=== PATIENT | female | born 1965 | race Two or more races ===

== ENCOUNTER 2020-05-02 14:21 | Outpatient (REF) | payer OTHER, SELFPAY ==
[2020-05-02 16:05] LABS: Alanine Aminotransferase 14 U/L (0-31); Albumin Level 4.2 g/dL (3.5-5.0); Alkaline Phosphatase 72 U/L (39-117); Anion Gap 11 (12-20); Aspartate Amino Transferase 17 U/L (5-31); Bilirubin Total 0.9 mg/dL (0.0-1.0); Blood Urea Nitrogen 12 mg/dL (9-16); Calcium 9.2 mg/dL (8.4-10.2); Carbon Dioxide 29 mmol/L (22-29); Chloride 106 mmol/L (96-108); Cholesterol 269 mg/dL; Estimated Glomerular Filt Rate > 60; Glucose Fasting 104 mg/dL (60-99); HDL Cholesterol 59 mg/dL; LDL Cholesterol Calculated 183 mg/dl; Potassium 4.3 mmol/l (3.3-5.1); Sodium 142 mmol/L (135-145); Total Protein 7.3 g/dL (6.5-8.0); Triglycerides 139 mg/dL
[2020-05-02 16:25] LABS: TSH reflex Free T4 2.16 mIU/mL (0.32-4.0)
== END 2020-05-02 14:22 | disposition home or self-care (01) ==
LOC: HO.LAB 14:21
PROVIDERS: PCP Internal Medicine; Visit Provider Internal Medicine
DX: E03.9 Hypothyroidism, unspecified (principal); E78.5 Hyperlipidemia, unspecified; E11.9 Type 2 diabetes mellitus without complications
CPT/HCPCS: 36415; 80053; 80061; 84443

== ENCOUNTER 2020-05-31 10:48 | Outpatient (REF) | payer OTHER, SELFPAY ==
--- NOTE | ~2020-05-31 | MM_ITS ---
EXAMINATION: MM SCREENING DIGITAL BREAST TOMOSYNTHESIS, BILATERAL CLINICAL INFORMATION: Screening. Asymptomatic. Prior history bilateral reduction mammoplasty. The lifetime risk of breast cancer based on the Tyrer-Cuzick Model is 11%. COMPARISON: Mammography: 09/29/2018, 01/31/2016, 09/19/2014 TECHNIQUE: Digital breast tomosynthesis is performed in both the craniocaudal and mediolateral oblique views along with computer-aided detection (CAD). Synthesized 2D images are generated from the tomosynthesis. FINDINGS: There are scattered areas of fibroglandular density (ACR BI-RADS breast composition Category b). There are no significant masses, abnormal calcifications, or other abnormalities. Parenchymal pattern is similar to prior exams. Minor bilateral scarring consistent with the prior surgery is stable. No significant changes from prior exams. MM/MM tomosynthesis screening BI IMPRESSION: No mammographic evidence of malignancy. ASSESSMENT: BI-RADS 2: Benign RECOMMENDATION: Routine annual mammography screening. This patient's information was entered into a reminder system with a target due date for their next mammogram.
== END 2020-05-31 10:49 | disposition home or self-care (01) ==
LOC: HO.MAMMO 10:48
PROVIDERS: Visit Provider Internal Medicine
DX: Z12.31 Encounter for screening mammogram for malignant neoplasm of breast (principal)
CPT/HCPCS: 77063; 77067

== ENCOUNTER 2020-06-10 15:42 | Emergency (ER) | payer OTHER, SELFPAY ==
--- NOTE | ~2020-06-10 | XR_ITS ---
EXAMINATION: 1. LUMBAR SPINE. 2. SACRUM AND COCCYX. CLINICAL INFORMATION: Low back pain COMPARISON: CT scan abdomen pelvis 08/05/2017 TECHNIQUE: 1. Lumbar spine. 3 views 2. Sacrum and coccyx. 3 views FINDINGS: 1. Lumbar spine. Lumbar vertebrae have normal height and normal alignment. There is no fracture or bone destruction. There is minor degenerative lipping at the anterior endplates of lumbar vertebrae and mild facet joint arthrosis at lower lumbar spine. Lumbar disc heights are maintained. Compared to the prior study of 08/05/2017 there has not been substantial change. 2. Sacrum and coccyx. There is no fracture. No focal bone lesion. The sacroiliac joints are normal XR/XR sacrum coccyx min 2V IMPRESSION: 1. Lumbar spine. No acute abnormality. Mild degenerative change of lumbar spine. 2. Sacrum and coccyx. Normal exam.
--- NOTE | ~2020-06-10 | XR_ITS ---
EXAMINATION: 1. LUMBAR SPINE. 2. SACRUM AND COCCYX. CLINICAL INFORMATION: Low back pain COMPARISON: CT scan abdomen pelvis 08/05/2017 TECHNIQUE: 1. Lumbar spine. 3 views 2. Sacrum and coccyx. 3 views FINDINGS: 1. Lumbar spine. Lumbar vertebrae have normal height and normal alignment. There is no fracture or bone destruction. There is minor degenerative lipping at the anterior endplates of lumbar vertebrae and mild facet joint arthrosis at lower lumbar spine. Lumbar disc heights are maintained. Compared to the prior study of 08/05/2017 there has not been substantial change. 2. Sacrum and coccyx. There is no fracture. No focal bone lesion. The sacroiliac joints are normal XR/XR lumbar spine 2-3V IMPRESSION: 1. Lumbar spine. No acute abnormality. Mild degenerative change of lumbar spine. 2. Sacrum and coccyx. Normal exam.
[2020-06-10 16:06] VITALS: BP 135/65; PULSE 71; RESP 16; TEMP 36.9; O2SAT 99; BMI 23.5
--- NOTE | 2020-06-10 21:38 | ED_ITS ---
HPI - Back Pain/Injury General Chief Complaint: Back Pain/Injury Stated Complaint: lower back pain Time Seen by Provider: 06/10/20 22:56 Source: patient Mode of arrival: ambulatory Limitations: language barrier History of Present Illness HPI Narrative: 55-year-old female with past medical history of anxiety, hypothy roidism, hyperlipidemia, diabetes type 2 presents with 2 weeks of lower back pain, rectal itching and vaginal discharge. She does report having hysterectomy, does not state to have any high risk sexual behaviors, denies trauma, assault, fevers, chills, chest pain pressure, palpitations, shortness of breath, abdominal distention, abdominal pain, hematuria, and edema. MD elicited complaint: back pain Pertinent past history: prior back pain Onset (ago): week(s) (2) Timing: constant Severity: moderate Similar Symptoms Previously: No Quality: burning and aching Location: lumbar spine and sacrum Radiation: none Exacerbating factors: movement Relieving factors: none Treatments prior to arrival: NSAIDS Work related injury: No Related Data Home Medications Medication Instructions Recorded Confirmed blood sugar diagnostic #10 ea 01/17/20 05/01/20 lancets 28 gauge #100 ea 01/17/20 05/01/20 prazosin 1 mg capsule 1 mg PO BEDTIME PRN 01/17/20 05/01/20 venlafaxine 150 mg 150 mg PO QAM 01/17/20 05/01/20 capsule,extended release 24 hr Previous Rx's Medication Instructions Recorded blood sugar diagnostic #100 ea 01/29/20 levothyroxine 88 mcg tablet 88 mcg PO DAILY 90 Days #90 tab 03/20/20 alprazolam 0.5 mg tablet 0.5 mg PO BEDTIME PRN 30 Days #25 05/01/20 tab atorvastatin 20 mg tablet 20 mg PO DAILY 90 Days #90 tab 05/01/20 metformin 500 mg tablet 500 mg PO BID 90 Days #180 tab 05/01/20 fluconazole [Diflucan] 150 mg PO DAILY #1 tab 06/10/20 nitrofurantoin monohyd/m-cryst 100 mg PO Q12H 5 Days #10 cap 06/10/20 [Macrobid] phenazopyridine [Pyridium] 200 mg PO TID PRN #6 tab 06/10/20 Allergies Allergy/AdvReac Type Severity Reaction Status Date / Time morphine [MORPHINE] Allergy Unknown TACHYCARDIA, Verified 06/10/20 16:08 palpitations Penicillins Allergy Unknown RASH Verified 06/10/20 16:08 pravastatin Allergy Unknown hives Verified 06/10/20 16:08 Review of Systems Review of Systems: Constitutional: No Fever, No Chills ENT/Mouth: No Ear Pain, No Hoarseness, No sore throat Eyes: No Eye Pain, No Swelling, No Redness, No Foreign Body Cardiovascular: No Chest Pain, No SOB Respiratory: No Cough, No Dyspnea Gastrointestinal: No Nausea, No Vomiting, No Diarrhea, No abdominal Pain Genitourinary: Positive rectal burning, positive vaginal discharge, positive Dysuria, No Hematuria Musculoskeletal: positive lower back pain, No Myalgias, No Joint Swelling Skin: No Skin lacerations, No rash Neuro: No Weakness, No Numbness, No Paresthesias, No Loss of Consciousness, No Dizziness, No Headache Psych: No Anxiety/Panic, No Depression Heme/Lymph: no easy bruising, no Lymphadenopathy Endocrine: No Polyuria, No Polydipsia Yes all other systems are reviewed and are negative [facility] Past Medical History Attestation statement: The following information was validated with the patient. Source: old records reviewed Medical History (Updated 06/10/20 @ 23:02 by Dianne Valenzuela NP) Anxiety Diabetes mellitus Dyslipidemia Hypothyroidism Surgical History H/O: History of laparoscopic cholecystectomy History of toe surgery History of total abdominal hysterectomy Lipoma Status post breast reduction Family History Family History Father Hypertension Diabetes Mother Hypertension Diabetes Stroke Cancer Paternal Grandmother Cancer Social History Social History Alcohol intake: current Alcohol intake frequency: holidays/special occasions only Smoking Status: Never smoker Smoked in Last 30 Days: No Use of substances other than those prescribed or required for medical reasons: No Advance Directives: No Advance Directives Information Provided: Yes Physical Exam Vital Signs: Vital Signs: Last Vital Signs Temp 98.3 F 06/10/20 21:56 Pulse 73 06/10/20 21:56 Resp 18 06/10/20 21:56 BP 128/54 L 06/10/20 21:56 Pulse Ox 100 06/10/20 21:56 Body Mass Index 23.5 Appearance: Alert. Oriented X3. No acute distress. Eyes: Pupils equal, round and reactive to light. ENT: Pharynx normal. Neck: Normal inspection. Neck supple. CVS: Normal heart rate and rhythm. Pulses normal. Respiratory: No respiratory distress. Breath sounds normal. Abdomen: Soft and nontender. Skin: Skin warm and dry. Normal skin color. Normal skin turgor. Extremities: No lower extremity edema. Neuro: No motor deficit. No sensory deficit. GI: Rectal Exam - Female: visual inspection normal, normal sphincter tone, No Lesions present (GI), No Anal fissure(s) present, No hemorrhoids and No Excoriation present (GI) : General: Yes Bimanual renal exam normal bilaterally External Female Exam: normal external appearance, normal appearance of the urethra, No externally tender and No urethral discharge Speculum Exam - Vagina: normal appearance of the vagina, normal palpation, abnormal vaginal discharge white and caseous, no lacerations, no lesions, No vaginal bleeding, No tissue present in vagina, no swelling and nontender Speculum Exam - Cervix: Cervix absent Bimanual exam- vagina & uterus: normal bimanual exam, normal palpation and uterus absent Bimanual Exam- Adnexa, other: normal adnexae OB/external & speculum: no tissue noted in vagina and vaginal bleeding Course Course Course Narrative: 55-year-old female with past medical history of anxiety, hypothyroidism, hyperlipidemia, diabetes type 2 presents with 2 weeks of lower b ack pain, rectal itching and vaginal discharge. Plan of care is for lumbar and sacral x-ray, pelvic exam, and lab work. Lumbar and sacral x-rays are negative for acute findings requiring emergent in tervention. Pelvic exam cervix is absent secondary to hysterectomy, vaginal flynn are normal, introitus is normal, thick white discharge noted suspected to be candidiasis. Swabs for CT NG, trichomoniasis, and BV obtained. Urinalysis indicates UTI. Will treat with Macrobid, Pyridium and Diflucan. Discussion with patient regarding plan of care, beamster utilized for all correspondence, will translate utilized for discharge instructions. Patient verbalized understanding of and agrees to plan of care MDM - Back Pain/Injury Differential Diagnosis Differential diagnosis: Likely lumbar radiculopathy and sciatica Medical Records Attestation: I reviewed the patient's medical records. Lab Data Attestation: I reviewed the patient's lab results. Result diagrams: 06/10/20 21:51 06/10/20 21:51 Labs: Lab Results 06/10/20 06/10/20 06/10/20 Range/Units 21:51 21:51 21:51 WBC 7.5 (4.8-10.8) X10*3/uL RBC 4.40 (4.20-5.50) X10*6/uL Hgb 13.2 (12.0-16.0) g/dl Hct 40.7 (37-47) % MCV 92.5 (80-98) fL MCH 30.0 (27.0-33.0) pg MCHC 32.4 (31.0-35.0) g/dl RDW 12.2 (11.0-16.0) % Plt Count 293 (160-400) X10*3/uL MPV 10.7 (9.4-12.3) fL Immature Gran % (Auto) 0.3 (0.0-0.4) % Neut % (Auto) 48.3 (45-73) % Lymph % (Auto) 40.4 H (20-40) % [place] % (Auto) 8.1 (2-11) % Eos % (Auto) 2.5 (0-4) % Baso % (Auto) 0.4 (0-2) % Lymph # (Auto) 3.0 (1.2-4.9) X10*3/uL [place] # (Auto) 0.6 (0.1-1.2) X10*3/uL Eos # (Auto) 0.2 (0.0-0.4) X10*3/uL Baso # (Auto) 0.0 (0.0-0.2) X10*3/uL Abs Immat Gran (auto) 0.02 (0.00-0.03) X10*3/uL Absolute Neuts (auto) 3.6 (2.0-8.3) X10*3/uL Absolute Nucleated RBC 0.000 (0.0-0.012) X10*3/uL Nucleated RBC % (auto) 0.0 (0.0-0.2) /100WBC Hold Blue Top SEE NOTE Sodium 143 (135-145) mmol/L Potassium 3.9 (3.3-5.1) mmol/L Chloride 107 (96-108) mmol/L Carbon Dioxide 27 (22-29) mmol/L Anion Gap 13 (12-20) BUN 10 (9-16) mg/dL Creatinine 0.74 (0.5-1.4) mg/dL Estim Creat Clear Calc 73.3 Estimated GFR > 60 Random Glucose 83 (60-115) mg/dL Calcium 9.2 (8.4-10.2) mg/dL Urine Color Urine Appearance Urine pH (5.0-8.0) Ur Specific [place] (1.005-1.025) Urine Protein (NEG-TRACE) MG/DL Urine Glucose (UA) (NEG) MG/DL Urine Ketones (NEG) MG/DL Urine Blood (NEG) Urine Nitrite (NEG) Ur Leukocyte Esterase (NEG) Urine RBC (0) /HPF Urine WBC (0-4) /HPF Ur Squamous Epith Cells /LPF Urine Bacteria /LPF 06/10/20 Range/Units 21:51 WBC (4.8-10.8) X10*3/uL RBC (4.20-5.50) X10*6/uL Hgb (12.0-16.0) g/dl Hct (37-47) % MCV (80-98) fL MCH (27.0-33.0) pg MCHC (31.0-35.0) g/dl RDW (11.0-16.0) % Plt Count (160-400) X10*3/uL MPV (9.4-12.3) fL Immature Gran % (Auto) (0.0-0.4) % Neut % (Auto) (45-73) % Lymph % (Auto) (20-40) % [place] % (Auto) (2-11) % Eos % (Auto) (0-4) % Baso % (Auto) (0-2) % Lymph # (Auto) (1.2-4.9) X10*3/uL [place] # (Auto) (0.1-1.2) X10*3/uL Eos # (Auto) (0.0-0.4) X10*3/uL Baso # (Auto) (0.0-0.2) X10*3/uL Abs Immat Gran (auto) (0.00-0.03) X10*3/uL Absolute Neuts (auto) (2.0-8.3) X10*3/uL Absolute Nucleated RBC (0.0-0.012) X10*3/uL Nucleated RBC % (auto) (0.0-0.2) /100WBC Hold Blue Top Sodium (135-145) mmol/L Potassium (3.3-5.1) mmol/L Chloride (96-108) mmol/L Carbon Dioxide (22-29) mmol/L Anion Gap (12-20) BUN (9-16) mg/dL Creatinine (0.5-1.4) mg/dL Estim Creat Clear Calc Estimated GFR Random Glucose (60-115) mg/dL Calcium (8.4-10.2) mg/dL Urine Color STRAW Urine Appearance CLEAR Urine pH 6.5 (5.0-8.0) Ur Specific [place] 1.010 (1.005-1.025) Urine Protein NEG (NEG-TRACE) MG/DL Urine Glucose (UA) NEG (NEG) MG/DL Urine Ketones NEG (NEG) MG/DL Urine Blood TRACE (NEG) Urine Nitrite NEG (NEG) Ur Leukocyte Esterase 3+ H (NEG) Urine RBC 0-2 (0) /HPF Urine WBC 30-49 H (0-4) /HPF Ur Squamous Epith Cells 1+ /LPF Urine Bacteria 2+ /LPF Imaging Data Lumbar and sacral x-ray: Attestation: I personally reviewed and interpreted this imaging study as follows: Radiologist's impression: EXAMINATION: 1. LUMBAR SPINE. 2. SACRUM AND COCCYX. CLINICAL INFORMATION: Low back pain COMPARISON: CT scan abdomen pelvis 08/05/2017 TECHNIQUE: 1. Lumbar spine. 3 views 2. Sacrum and coccyx. 3 views FINDINGS: 1. Lumbar spine. Lumbar vertebrae have normal height and normal alignment. There is no fracture or bone destruction. There is minor degenerative lipping at the anterior endplates of lumbar vertebrae and mild facet joint arthrosis at lower lumbar spine. Lumbar disc heights are maintained. Compared to the prior study of 08/05/2017 there has not been substantial change. 2. Sacrum and coccyx. There is no fracture. No focal bone lesion. The sacroiliac joints are normal XR/XR lumbar spine 2-3V IMPRESSION: 1. Lumbar spine. No acute abnormality. Mild degenerative change of lumbar spine. 2. Sacrum and coccyx. Normal exam. Discharge Plan Discharge Clinical Impression: UTI (urinary tract infection) Qualifiers: Urinary tract infection type: acute cystitis Hematuria presence: without hematuria Qualified Code(s): N30.00 - Acute cystitis without hematuria Patient Disposition: Home, Self-Care Instructions: Urinary Tract Infection in Women (ED) Additional Instructions: Te evaluaron por dolor lumbar. Las radiograf?as son negativas para los hallazgos agudos y la enfermedad degenerativa del disco. La miclisis es positiva para las bacterias y la esterasa de leucocitosa. Te estamos tratando con Macrobid esto es un antibi?honorio. Por favor, tome medicamentos seg?n las instrucciones. Le recetamos Pyridium, kvng medicamento convertir? lobo orina en naranja brillante. Bas?ndonos en los resultados de lobo examen p?lvico, le estamos tratando para la infecci?n de Ava. Toan por elegir kvng departamento de emergencias para lobo evaluaci?n. Por favor, clari un seguimiento con el m?dico de atenci?n primaria seg?n sea necesario. Regrese al servicio de emergencias para cualquier s?ntoma nuevo, preocupante o que empeore. You were evaluated for lower back pain. X-rays are negative for acute findings and degenerative disc disease. Urinalysis is positive for bacteria and leukocyte esterase. We are treating you with Macrobid this is an antibiotic. Please take medication as directed. We prescribed Pyridium, this medication will turn your urine bright orange. Based on the findings of your pelvic exam, we are treating you for Ava infec tion. Thank you for choosing this emergency department for evaluation. Please follow-up with primary care physician as needed. Return to the emergency department for any new, concerning, or worsening symptoms. Prescriptions: New nitrofurantoin monohyd/m-cryst [Macrobid] 100 mg capsule 100 mg PO Q12H 5 Days Qty: 10 RF: 0 phenazopyridine [Pyridium] 200 mg tablet 200 mg PO TID PRN (Reason: pain) Qty: 6 RF: 0 fluconazole [Diflucan] 150 mg tablet 150 mg PO DAILY Qty: 1 RF: 0 No Action (DME) FreeStyle Lite Strips Strip See Rx Instructions .MEDSUPPLY Qty: 100 RF: 8 levothyroxine 88 mcg tablet 88 mcg PO DAILY 90 Days Qty: 90 RF: 2 (DME) FreeStyle Lite Strips Strip See Rx Instructions strip .ROUTE .MEDSUPPLY Qty: 10 RF: 0 (DME) lancets 28 gauge misc See Rx Instructions ea topical BID Qty: 100 RF: 0 venlafaxine 150 mg capsule,extended release 24hr 150 mg PO QAM RF: 0 prazosin 1 mg capsule 1 mg PO BEDTIME PRN (Reason: nightmares) RF: 0 metformin 500 mg tablet 500 mg PO BID 90 Days Qty: 180 RF: 3 atorvastatin 20 mg tablet 20 mg PO DAILY 90 Days Qty: 90 RF: 3 alprazolam [Xanax] 0.5 mg tablet 0.5 mg PO BEDTIME PRN (Reason: sleep) 30 Days Qty: 25 RF: 0
[2020-06-10 21:56] VITALS: BP 128/54; PULSE 73; RESP 18; TEMP 36.8; O2SAT 100
[2020-06-10 21:56] LABS: MANUAL DIFF FLAG NO
--- NOTE | 2020-06-10 21:57 | PC.NURSE ---
iv inserted, labs drawn, urine obtained, pt to xray
[2020-06-10 21:58] LABS: Basophils Percent Auto 0.4 % (0-2); Eosinophils Absolute Auto 0.2 X10*3/uL (0.0-0.4); Eosinophils Percent Auto 2.5 % (0-4); Hematocrit 40.7 % (37-47); Hemoglobin 13.2 g/dl (12.0-16.0); Imm Gran Abs Auto 0.02 X10*3/uL (0.00-0.03); Imm Gran Pct Auto 0.3 % (0.0-0.4); Lymphocytes Percent Auto 40.4 % (20-40); Mean Corpuscular HGB Conc 32.4 g/dl (31.0-35.0); Mean Corpuscular Volume 92.5 fL (80-98); Mean Platelet Volume 10.7 fL (9.4-12.3); Monocytes Absolute Auto 0.6 X10*3/uL (0.1-1.2); Monocytes Percent Auto 8.1 % (2-11); Neutrophils Absolute Auto 3.6 X10*3/uL (2.0-8.3); Neutrophils Percent Auto 48.3 % (45-73); Platelet Count 293 X10*3/uL (160-400); Red Cell Distribution Width 12.2 % (11.0-16.0); White Blood Count 7.5 X10*3/uL (4.8-10.8)
[2020-06-10 21:59] LABS: Appearance Urine CLEAR; Color Urine STRAW; Glucose Urine UA NEG (NEG); Leukocyte Esterase Urine 3+ (NEG); Nitrite Urine NEG (NEG); PH 6.5 (5.0-8.0); UACC Culture Trigger YES; Urine Blood TRACE (NEG); Urine Ketones NEG (NEG); Urine Protein NEG (NEG-TRACE)
[2020-06-10 22:14] LABS: Bacteria Urine 2+ /LPF; RBC Urine 0-2 /HPF (0); Squamous Epithelial Cell Urine 1+ /LPF; WBC Urine 30-49 /HPF (0-4)
[2020-06-10 22:22] LABS: Anion Gap 13 (12-20); Blood Urea Nitrogen 10 mg/dL (9-16); Calcium 9.2 mg/dL (8.4-10.2); Carbon Dioxide 27 mmol/L (22-29); Chloride 107 mmol/L (96-108); Creatinine Clr Calc Pharmacy 73.3; Estimated Glomerular Filt Rate > 60; Glucose Random 83 mg/dL (60-115); Potassium 3.9 mmol/L (3.3-5.1); Sodium 143 mmol/L (135-145)
--- NOTE | 2020-06-10 22:32 | PC.NURSE ---
vaginal exam performed by provider, samples obtained
[2020-06-10] MEDS: Nitrofurantoin Monohyd/M-Cryst 100 MG CAPSULE PO (23:17)
[2020-06-10] MEDS: Fluconazole 150 MG TABLET PO (23:17)
[2020-06-10] MEDS: Phenazopyridine HCL 200 MG TABLET PO (23:17)
[2020-06-11 09:10] LABS: CT PCR NOT DETECTED (Not Detect.); NG PCR NOT DETECTED (Not Detect.)
[2020-06-11 09:17] LABS: BV Int Neg Control Negative (Negative); BV Int Pos Control Positive (Positive)
== END 2020-06-10 23:38 | disposition home or self-care (01) ==
PROVIDERS: Nurse Practitioner Family; Emergency Provider Emergency Medicine; PCP Internal Medicine
DX: N30.00 Acute cystitis without hematuria (principal); M54.5 Low back pain; E11.9 Type 2 diabetes mellitus without complications; Z90.710 Acquired absence of both cervix and uterus; Z79.899 Other long term (current) drug therapy; Z11.3 Encounter for screening for infections with a predominantly sexual mode of transmission
CPT/HCPCS: 36415; 72100; 72220; 80048; 81001; 81003; 85025; 87086; 87088; 87186; 87480; 87491; 87510; 87591; 87660; 99284

== ENCOUNTER 2020-10-17 15:36 | Outpatient (REF) | payer OTHER, SELFPAY ==
[2020-10-17 16:37] LABS: Alanine Aminotransferase 12 U/L (0-31); Albumin Level 4.1 g/dL (3.5-5.0); Alkaline Phosphatase 71 U/L (39-117); Anion Gap 13 (12-20); Aspartate Amino Transferase 18 U/L (5-31); Bilirubin Total 0.9 mg/dL (0.0-1.0); Blood Urea Nitrogen 9 mg/dL (9-16); Calcium 9.6 mg/dL (8.4-10.2); Carbon Dioxide 23 mmol/L (22-29); Chloride 109 mmol/L (96-108); Cholesterol 161 mg/dL; Estimated Glomerular Filt Rate > 60; Glucose Fasting 104 mg/dL (60-99); HDL Cholesterol 52 mg/dL; LDL Cholesterol Calculated 86 mg/dl; Potassium 4.4 mmol/L (3.3-5.1); Sodium 141 mmol/L (135-145); Total Protein 7.2 g/dL (6.5-8.0); Triglycerides 115 mg/dL
[2020-10-17 16:48] LABS: Creatinine Urine 153.56 mg/dL; Microalbum/Creatinine Ratio Ur 5.8 ug/mg cr
[2020-10-21 13:37] LABS: Vitamin D 25-OH, D2 70 ng/mL; Vitamin D 25-OH, D3 15 ng/mL; Vitamin D 25-OH, Total 85 ng/mL (30-100)
== END 2020-10-17 15:37 | disposition home or self-care (01) ==
LOC: HO.LAB 15:36
PROVIDERS: PCP Internal Medicine; Visit Provider Internal Medicine
DX: E11.65 Type 2 diabetes mellitus with hyperglycemia (principal); E78.5 Hyperlipidemia, unspecified; E03.9 Hypothyroidism, unspecified; E55.9 Vitamin D deficiency, unspecified
CPT/HCPCS: 36415; 80053; 80061; 82043; 82306; 84443

== ENCOUNTER 2021-03-21 15:30 | Outpatient (REF) | payer OTHER, SELFPAY ==
[2021-03-21 16:28] LABS: Triglycerides 115 mg/dL
[2021-03-21 16:40] LABS: Thyroid Stimulating Hormone 3.42 uIU/mL (0.32-4.0)
[2021-03-21 16:55] LABS: Cholesterol 210 mg/dL; HDL Cholesterol 54 mg/dL; LDL Cholesterol Calculated 133 mg/dl
[2021-03-21 17:34] LABS: Creatinine Urine 32.67 mg/dL; Microalbumin Urine < 5.0 mg/L
[2021-03-26 12:42] LABS: Vitamin D 25-OH, D2 23 ng/mL; Vitamin D 25-OH, D3 17 ng/mL; Vitamin D 25-OH, Total 40 ng/mL (30-100)
== END 2021-03-21 15:31 | disposition home or self-care (01) ==
LOC: HO.LAB 15:30
PROVIDERS: Visit Provider Internal Medicine
DX: E11.9 Type 2 diabetes mellitus without complications (principal); E78.5 Hyperlipidemia, unspecified; E03.9 Hypothyroidism, unspecified; E55.9 Vitamin D deficiency, unspecified
CPT/HCPCS: 36415; 80061; 82043; 82306; 84443

== ENCOUNTER 2021-04-14 10:38 | Emergency (ER) | payer OTHER, SELFPAY ==
--- NOTE | ~2021-04-14 | XR_ITS ---
EXAMINATION: XR CHEST CLINICAL INFORMATION: Chest pain. COMPARISON: Chest radiograph dated from 11/13/2018. TECHNIQUE: PA view of the chest was obtained. FINDINGS: No significant abnormality is noted involving the heart, lungs, mediastinum, bony thorax or soft tissues. XR/XR chest 1V IMPRESSION: No acute cardiopulmonary findings.
[2021-04-14 12:55] VITALS: BP 133/82; PULSE 98; RESP 18; TEMP 36.7; O2SAT 99; BMI 23.1
[2021-04-14 12:59] VITALS: BP 142/61; PULSE 82; RESP 18; TEMP 36.5; O2SAT 99
--- NOTE | 2021-04-14 12:59 | ECG_ITS ---
Test Reason : CHEST PAIN Blood Pressure : / mmHG Vent. Rate : 095 BPM Atrial Rate : 095 BPM P-R Int : 166 ms QRS Dur : 082 ms QT Int : 340 ms P-R-T Axes : 028 018 002 degrees QTc Int : 427 ms Normal sinus rhythm Nonspecific ST and T wave abnormality Abnormal ECG When compared with ECG of 13-NOV-2018 20:56, Vent. rate has increased BY 36 BPM Referred By: Generic ED Physician Electronically Signed By:Jarret Menjivar
[2021-04-14 13:44] LABS: Basophils Percent Auto 0.1 % (0-2); Hematocrit 43.6 % (37.0-47.0); Hemoglobin 14.1 g/dl (12.0-16.0); Imm Gran Abs Auto 0.02 X10*3/uL (0.00-0.03); Imm Gran Pct Auto 0.2 % (0.0-0.4); Lymphocytes Absolute Auto 0.6 X10*3/uL (1.2-4.9); Lymphocytes Percent Auto 6.6 % (20-40); MANUAL DIFF FLAG SCAN; Mean Corpuscular HGB Conc 32.3 g/dl (31.0-35.0); Mean Corpuscular Hemoglobin 30.1 pg (27.0-33.0); Mean Corpuscular Volume 93.2 fL (80.0-98.0); Mean Platelet Volume 10.6 fL (9.4-12.3); Monocytes Absolute Auto 0.2 X10*3/uL (0.1-1.2); Monocytes Percent Auto 2.8 % (2-11); Neutrophils Absolute Auto 7.6 x10*3/uL (2.0-8.3); Neutrophils Percent Auto 90.3 % (45-73); Platelet Count 300 X10*3/uL (160-400); Red Blood Count 4.68 X10*6/uL (4.20-5.50); Red Cell Distribution Width 12.9 % (11.0-16.0); SCAN SMEAR FLAG 1; White Blood Count 8.4 X10*3/uL (4.8-10.8)
[2021-04-14 13:54] LABS: Anion Gap 12 (12-20); Blood Urea Nitrogen 19 mg/dL (9-16); Calcium 9.6 mg/dL (8.4-10.2); Carbon Dioxide 26 mmol/L (22-29); Chloride 106 mmol/L (96-108); Estimated Glomerular Filt Rate > 60; Glucose Random 133 mg/dL (60-115); Potassium 4.2 mmol/L (3.3-5.1); Sodium 140 mmol/L (135-145)
[2021-04-14 14:00] LABS: Troponin-I High Sensitivity < 3.5 ng/L (<3.5-17.0)
[2021-04-14 14:01] LABS: SLIDE REVIEW VERIFIED
[2021-04-14 15:13] VITALS: BP 128/60; PULSE 94; RESP 18; TEMP 37; O2SAT 99
[2021-04-14 21:55] LABS: Alanine Aminotransferase 27 U/L (0-31); Albumin Level 4.3 g/dL (3.5-5.0); Alkaline Phosphatase 80 U/L (39-117); Aspartate Amino Transferase 34 U/L (5-31); Bilirubin Direct 0.3 mg/dL (0.0-0.5); Bilirubin Total 0.9 mg/dL (0.0-1.0); Lipase 21 U/L (8-78); Total Protein 7.9 g/dL (6.5-8.0)
[2021-04-14] MEDS: Acetaminophen 325 MG TABLET 650 MG PO (22:38)
[2021-04-14 22:54] LABS: Appearance Urine CLEAR; Color Urine YELLOW; Glucose Urine UA NEG (NEG); Leukocyte Esterase Urine NEG (NEG); Nitrite Urine NEG (NEG); Specific Gravity - Urine >= 1.030 (1.005-1.025); Urine Blood NEG (NEG); Urine Ketones NEG (NEG); Urine Protein TRACE MG/DL (NEG-TRACE)
[2021-04-14 23:24] LABS: Acetaminophen LAB < 1 mcg/mL (<30)
== END 2021-04-15 00:32 | disposition left against medical advice (07) ==
LOC: HO.ED 04-15 00:31
PROVIDERS: Student in an Organized Health Care Education/Training Program; Emergency Provider Emergency Medicine; PCP Internal Medicine
DX: R07.89 Other chest pain (principal); R11.10 Vomiting, unspecified
CPT/HCPCS: 36415; 71045; 80048; 80076; 80143; 81003; 83690; 84484; 85025; 93005; 99284

== ENCOUNTER 2021-06-23 11:26 | Outpatient (REF) | payer OTHER, SELFPAY | END 2021-06-23 11:27 | disposition home or self-care (01) | LOC: HO.MAMMO 11:26 | PROVIDERS: PCP Internal Medicine; Visit Provider Internal Medicine | DX: Z13.89 Encounter for screening for other disorder (principal) ==

== ENCOUNTER → 2021-10-02 10:30 | Outpatient (BNVA) | payer OTHER, SELFPAY | PROVIDERS: PCP Internal Medicine; Visit Provider Physician Assistant | DX: Z01.818 Encounter for other preprocedural examination (principal); K21.9 Gastro-esophageal reflux disease without esophagitis; Z86.010 Personal history of colon polyps; Z80.0 Family history of malignant neoplasm of digestive organs | CPT/HCPCS: 99202 ==

== ENCOUNTER 2021-10-06 11:25 | Day surgery (SDC) | payer OTHER, SELFPAY ==
--- NOTE | 2021-10-03 12:38 | P.CONAN_ITS ---
Documented by User: Stephanie Boyce NP 10/03/21 12:41 HPI - Anesthesia Eval Consult details Narrative: 56yo F for Colonoscopy PMFSH Active Problems Active Problems: All Active Problems (Updated 10/02/21 @ 12:18 by Taty Sen PA-C) Encounter for screening colonoscopy (Acute) Tubular adenoma (Acute) Physical exam (Acute) GERD (gastroesophageal reflux disease) (Acute) Mild recurrent major depression (Acute) Lower back pain (Acute) Anxiety (Acute) Hypothyroidism (Acute) Dyslipidemia (Acute) Diabetes mellitus (Acute) Past Medical History Medical History High cholesterol Family History Family History Father Hypertension Diabetes Mother Hypertension Diabetes Stroke Cancer Paternal Grandmother Cancer Family/Other Mental health disorder Surgical History Surgical History H/O: History of laparoscopic cholecystectomy History of toe surgery History of total abdominal hysterectomy Lipoma Status post breast reduction Social History Social History Housing: Apartment Alcohol intake: current Alcohol intake frequency: holidays/special occasions only Alcohol type: hard liquor Patient Tobacco Use Status: Never used Tobacco e-Cigarette/Vaping Use: Never Used Second Hand Smoke Exposure: No Use of substances other than those prescribed or required for medical reasons: No Are you DNR?: No Advance Directives: No Advance Directives Information Provided: Yes service: No Current occupational status: disabled Cognitive needs: No Hearing needs: No Vision needs: No Meds Allergies Allergy/AdvReac Type Severity Reaction Status Date / Time morphine [MORPHINE] Allergy Intermediate TACHYCARDIA, Verified 10/02/21 10:48 palpitations Penicillins Allergy Intermediate RASH Verified 10/02/21 10:48 pravastatin Allergy Intermediate hives Verified 10/02/21 10:48 Home Medications Medication Instructions Recorded Confirmed Last Taken Type blood sugar diagnostic #10 ea 01/17/20 10/06/21 Unknown History lancets 28 gauge #100 ea 01/17/20 10/06/21 Unknown History prazosin 1 mg capsule 1 mg PO BEDTIME PRN nightmares 01/17/20 10/06/21 Unknown History venlafaxine 150 mg 150 mg PO QAM 01/17/20 10/06/21 Unknown History capsule,extended release 24 hr Exam Exam Date and Time: October 03, 2021 1238 Assessment and Plan Assessment Anesthesia Assessment: Chart Reviewed Documented by User: Kavita Rollins MD 10/06/21 13:12 [facility] Past Medical History Medical History High cholesterol Family History Family History Father Hypertension Diabetes Mother Hypertension Diabetes Stroke Cancer Paternal Grandmother Cancer Family/Other Mental health disorder Family history of problems with anesthesia: No Surgical History Surgical History H/O: History of laparoscopic cholecystectomy History of toe surgery History of total abdominal hysterectomy Lipoma Status post breast reduction History of Problems with Anesthesia: No Social History Social History Housing: Apartment Alcohol intake: current Alcohol intake frequency: holidays/special occasions only Alcohol type: hard liquor Patient Tobacco Use Status: Never used Tobacco e-Cigarette/Vaping Use: Never Used Second Hand Smoke Exposure: No Use of substances other than those prescribed or required for medical reasons: No Are you DNR?: No Advance Directives: No Advance Directives Information Provided: Yes service: No Current occupational status: disabled Cognitive needs: No Hearing needs: No Vision needs: No Meds Allergies Allergy/AdvReac Type Severity Reaction Status Date / Time morphine [MORPHINE] Allergy Intermediate TACHYCARDIA, Verified 10/02/21 10:48 palpitations Penicillins Allergy Intermediate RASH Verified 10/02/21 10:48 pravastatin Allergy Intermediate hives Verified 10/02/21 10:48 Home Medications Medication Instructions Recorded Confirmed Last Taken Type blood sugar diagnostic #10 ea 01/17/20 10/06/21 Unknown History lancets 28 gauge #100 ea 01/17/20 10/06/21 Unknown History prazosin 1 mg capsule 1 mg PO BEDTIME PRN nightmares 01/17/20 10/06/21 Unknown History venlafaxine 150 mg 150 mg PO QAM 01/17/20 10/06/21 Unknown History capsule,extended release 24 hr Exam Airway Mallampati Class: II (Cap front top right) TM Dist: >3cm Neck ROM: Full Heart: rrr Lungs: cta Assessment and Plan Assessment Anesthesia Assessment: Anesthesia Plan Discussed and Chart Reviewed Final Anesthetic Review Family History of Problems with Anesthesia: No History of Problems with Anesthesia: No NPO: Yes ASA Class: II Final Preanesthetic Review: No Changes in Pt Med Stat, Meds/Allgs Chart Reviewed and Consent Obtained/Reviewed Patient Risk: Intermediate Procedure Risk: Intermediate Anesthetic Plan Anesthetic Plan: MAC: Disposition: Standard PACU
[2021-10-06 12:34] VITALS: BMI 26.2
[2021-10-06 12:37] VITALS: BP 134/60; PULSE 63; RESP 18; TEMP 36.1; O2SAT 99
[2021-10-06] MEDS: Lactated Ringers 1,000 ML 100 ML IVCONT (13:13)
[2021-10-06 13:14] LABS: Glucose, Whole Blood 96 mg/dL (60-115)
--- NOTE | 2021-10-06 13:18 | MHC.SHP ---
Pre-Procedural Eval Section A Date of Service: 10/06/21 The patient is an INPATIENT: No Changes since office visit: Yes Patient answered all questions; No Cold of Flu in the past 2 weeks, No New Medical Problems and No Changes in Medication The History & Physical has been completed within 30 days and I have reviewed it.: Yes Section B Chief Complaint: screening Allergies: Allergies Allergy/AdvReac Type Severity Reaction Status Date / Time morphine [MORPHINE] Allergy Intermediate TACHYCARDIA, Verified 10/02/21 10:48 palpitations Penicillins Allergy Intermediate RASH Verified 10/02/21 10:48 pravastatin Allergy Intermediate hives Verified 10/02/21 10:48 Plan I have reviewed the history and physical and performed a pertinent physical examination on my patient. No changes have occurred unless specified.
--- NOTE | 2021-10-06 13:19 | PM.OP ---
Brief Operative Note Date of Service: 10/06/21 Pre-op diagnosis: Colon cancer screening, hx of colon polyps, FH of colon cancer (maternal aunt at age 42 yrs) Post-op diagnosis: other (Colon polyp, diverticulosis) Procedure: COLONOSCOPY TILL CECUM WITH SNARE POLYPECTOMY Consent: Indications for the procedure and potential complications of bleeding, perforation, reaction to medications and missed diagnosis were discussed with the patient and informed consent was obtained. Instrument: Olympus PCF H 190 L variable stiffness pediatric colonoscope Monitoring: Vital signs and clinical assessment, intermittent blood pressure monitoring, continuous EKG monitoring, Pulse oximetry and Carbon Dioxide monitoring were done throughout the procedure. Colon withdrawl time was 18 minutes. Procedure: The patient was placed in the left lateral decubitis position and pre-procedure medications were administered. After a digital rectal examination of the ano-rectum, the video colonoscope was inserted into the rectum and advanced through the colon to the cecum. The colonoscope was slowly withdrawn in a retrograde panoramic fashion and the colon mucosa was carefully examined including a retroflexed view of the rectum. Findings and interventions are described below. Procedure Difficulty: Without difficulty Findings: Terminal Ileum: Not evaluated Cecum: Normal Ascending Colon: Normal Transverse Colon: Normal Descending Colon: Normal Sigmoid Colon: Moderate diverticulosis Rectum: A 10 to 12mm sessile polyp at 10 cms removed with a hot snare. Ano-rectum: Normal Colon preparation: Excellent Impression and Post Procedure Diagnosis: Colonoscopy Findings: One medium sized polyps removed Moderate diverticulosis seen in thecolon Plan: Await pathology results Patient has an appointment on 11/13/21 in the GI Clinic with BHARATH Summers. Repeat Colonoscopy interval based on path results - in 3 years if polyps are adenomatous and 5 years if polyps are hyperplastic (due to positive FH and a hx of colon polyps). Above findings were reviewed with the patient and colon polyps and diverticulosis handouts were given in the discharge area Surgeon: Nicky Gill MD Anesthesia: MAC (Dr Stein) Was an Grinder Machine Knife Setter used for this Procedure?: Yes Grinder Machine Knife Setter: Anna Naranjo Estimated blood loss (mL): 0 Pathology: other (A. Rectal polyp x 1) Condition: stable Disposition: PACU
--- NOTE | 2021-10-06 14:17 | W.PM.OPN ---
Operative Note Operative Note Date of Service: 10/06/21 Narrative: Pre-op diagnosis: Colon cancer screening, hx of colon polyps, FH of colon cancer (maternal aunt at age 42 yrs) Post-op diagnosis:?other (Colon polyp, diverticulosis) Procedure: COLONOSCOPY TILL CECUM WITH SNARE POLYPECTOMY Consent: Indications for the procedure and potential complications of bleeding, perforation, reaction to medications and missed diagnosis were discussed with the patient and informed consent was obtained. Instrument: Olympus PCF H 190 L variable stiffness pediatric colonoscope Monitoring: Vital signs and clinical assessment, intermittent blood pressure monitoring, continuous EKG monitoring, Pulse oximetry and Carbon Dioxide monitoring were done throughout the procedure. Colon withdrawl time was 18 minutes. Procedure: The patient was placed in the left lateral decubitis position and pre-procedure medications were administered. After a digital rectal examination of the ano-rectum, the video colonoscope was inserted into the rectum and advanced through the colon to the cecum. The colonoscope was slowly withdrawn in a retrograde panoramic fashion and the colon mucosa was carefully examined including a retroflexed view of the rectum. Findings and interventions are described below. Procedure Difficulty: Without difficulty Findings: Terminal Ileum: Not evaluated Cecum:? Normal Ascending Colon:? Normal Transverse Colon:? Normal Descending Colon:? Normal Sigmoid Colon:? Moderate diverticulosis Rectum:? A 10 to 12mm sessile polyp at 10 cms removed with a hot snare. Ano-rectum:? Normal Colon preparation: Excellent ? Impression and Post Procedure Diagnosis: Colonoscopy Findings: One medium sized polyps removed Moderate diverticulosis seen in thecolon Plan: Await pathology results Patient has an appointment on 11/13/21 in the GI Clinic with BHARATH Summers. Repeat Colonoscopy interval based on path results - in 3 years if polyps are adenomatous and 5 years if polyps are hyperplastic (due to positive FH and a hx of colon polyps). Colon polyps and diverticulosis handouts were given in the discharge area Surgeon: Nciky Gill MD Anesthesia:?MAC (Dr Stein) Was an Order Dispatcher Chief used for this Procedure?:?Yes Order Dispatcher Chief:?Anna Naranjo Estimated blood loss (mL):?0 Pathology:?other (A.? Rectal polyp x 1) Condition:?stable Disposition:?PACU
[2021-10-06 14:55] VITALS: BP 108/55; PULSE 67; RESP 16; TEMP 36.1; O2SAT 98
[2021-10-06 15:10] VITALS: BP 132/67; PULSE 62; RESP 16; O2SAT 100
[2021-10-06 15:25] VITALS: BP 128/51; PULSE 71; RESP 14; TEMP 36.4; O2SAT 98
== END 2021-10-06 15:43 | disposition home or self-care (01) ==
PROVIDERS: PCP Internal Medicine; Visit Provider Internal Medicine Gastroenterology
PROC: 0DJD8ZZ Inspection of Lower Intestinal Tract, Via Natural or Artificial Opening Endoscopic (ICD-10-PCS; CPT 45378; principal; 2021-10-06 13:30)
DX: Z12.11 Encounter for screening for malignant neoplasm of colon (principal); Z86.010 Personal history of colon polyps; D12.8 Benign neoplasm of rectum; K57.30 Diverticulosis of large intestine without perforation or abscess without bleeding; K21.9 Gastro-esophageal reflux disease without esophagitis; E78.5 Hyperlipidemia, unspecified; E11.9 Type 2 diabetes mellitus without complications; Z79.84 Long term (current) use of oral hypoglycemic drugs; Z79.899 Other long term (current) drug therapy; Z88.0 Allergy status to penicillin; Z88.8 Allergy status to other drugs, medicaments and biological substances; Z90.49 Acquired absence of other specified parts of digestive tract
CPT/HCPCS: 45385; 82947; 88305

== ENCOUNTER 2022-01-01 13:55 | Outpatient (REF) | payer OTHER, SELFPAY ==
[2022-01-01 14:15] LABS: MANUAL DIFF FLAG NO
[2022-01-01 14:43] LABS: Basophils Percent Auto 0.5 % (0-2); Eosinophils Absolute Auto 0.3 X10*3/uL (0.0-0.4); Eosinophils Percent Auto 4.7 % (0-4); Hematocrit 39.2 % (37.0-47.0); Hemoglobin 12.5 g/dl (12.0-16.0); Imm Gran Abs Auto 0.01 X10*3/uL (0.00-0.03); Imm Gran Pct Auto 0.2 % (0.0-0.4); Lymphocytes Absolute Auto 2.6 X10*3/uL (1.2-4.9); Lymphocytes Percent Auto 39.3 % (20-40); Mean Corpuscular HGB Conc 31.9 g/dl (31.0-35.0); Mean Corpuscular Hemoglobin 29.5 pg (27.0-33.0); Mean Corpuscular Volume 92.5 fL (80.0-98.0); Mean Platelet Volume 10.8 fL (9.4-12.3); Monocytes Absolute Auto 0.4 X10*3/uL (0.1-1.2); Monocytes Percent Auto 6.7 % (2-11); Neutrophils Absolute Auto 3.2 x10*3/uL (2.0-8.3); Neutrophils Percent Auto 48.6 % (45-73); Platelet Count 279 X10*3/uL (160-400); Red Blood Count 4.24 X10*6/uL (4.20-5.50); Red Cell Distribution Width 12.8 % (11.0-16.0); White Blood Count 6.6 X10*3/uL (4.8-10.8)
[2022-01-01 15:14] LABS: Creatinine Urine 130.82 mg/dL; Microalbum/Creatinine Ratio Ur 3.8 ug/mg cr
[2022-01-01 15:20] LABS: Alanine Aminotransferase 15 U/L (0-31); Alkaline Phosphatase 70 U/L (39-117); Anion Gap 11 (12-20); Aspartate Amino Transferase 18 U/L (5-31); Bilirubin Total 0.8 mg/dL (0.0-1.0); Blood Urea Nitrogen 9 mg/dL (9-16); Calcium 9.5 mg/dL (8.4-10.2); Carbon Dioxide 28 mmol/L (22-29); Chloride 106 mmol/L (96-108); Cholesterol 167 mg/dL; Estimated Glomerular Filt Rate > 60; Glucose Fasting 94 mg/dL (60-99); HDL Cholesterol 53 mg/dL; LDL Cholesterol Calculated 87 mg/dl; Potassium 4.3 mmol/L (3.3-5.1); Sodium 141 mmol/L (135-145); Total Protein 7.1 g/dL (6.5-8.0); Triglycerides 135 mg/dL
[2022-01-01 15:41] LABS: Thyroid Stimulating Hormone 3.95 uIU/mL (0.32-4.0)
== END 2022-01-01 13:56 | disposition home or self-care (01) ==
LOC: HO.LAB 13:55
PROVIDERS: PCP Internal Medicine; Visit Provider Internal Medicine
DX: K21.9 Gastro-esophageal reflux disease without esophagitis (principal); E03.9 Hypothyroidism, unspecified; E11.65 Type 2 diabetes mellitus with hyperglycemia; E78.5 Hyperlipidemia, unspecified; D36.9 Benign neoplasm, unspecified site; K57.30 Diverticulosis of large intestine without perforation or abscess without bleeding; Z86.010 Personal history of colon polyps; Z79.899 Other long term (current) drug therapy
CPT/HCPCS: 36415; 80053; 80061; 82043; 84443; 85025; 99212

== ENCOUNTER 2022-05-15 11:01 | Outpatient (REF) | payer OTHER, SELFPAY ==
--- NOTE | ~2022-05-15 | MM_ITS ---
EXAMINATION: MM SCREENING DIGITAL BREAST TOMOSYNTHESIS, BILATERAL CLINICAL INFORMATION: Screening. Asymptomatic. Prior remote reduction mammoplasty, 2006. The lifetime risk of breast cancer based on the Tyrer-Cuzick Model is 10%. COMPARISON: Mammography: 05/31/2020, 09/29/2018, 01/31/2016 TECHNIQUE: Digital breast tomosynthesis is performed in both the craniocaudal and mediolateral oblique views along with computer-aided detection (CAD). Synthesized 2D images are generated from the tomosynthesis. Additional left cleavage view is provided. FINDINGS: There are scattered areas of fibroglandular density (ACR BI-RADS breast composition Category b). Parenchymal pattern is similar to prior studies. There is no developing density or interval mass or architectural abnormality. Scattered minor asymmetries are stable. There are no abnormal calcifications. The axilla and skin contours are unremarkable. MM/MM tomosynthesis screening BI IMPRESSION: No mammographic evidence of malignancy. ASSESSMENT: BI-RADS 2: Benign RECOMMENDATION: Routine annual mammography screening. This patient's information was entered into a reminder system with a target due date for their next mammogram.
== END 2022-05-15 11:02 | disposition home or self-care (01) ==
LOC: HO.MAMMO 11:01
PROVIDERS: PCP Internal Medicine; Visit Provider Internal Medicine
DX: Z12.31 Encounter for screening mammogram for malignant neoplasm of breast (principal)
CPT/HCPCS: 77063; 77067

== ENCOUNTER 2022-07-29 11:17 | Outpatient (REF) | payer OTHER, SELFPAY ==
--- NOTE | ~2022-07-29 | XR_ITS ---
EXAMINATION: XR KNEE, RIGHT CLINICAL INFORMATION: Reason for Exam M25.561 - Pain in right knee COMPARISON: Knee radiographs 12/16/2017 TECHNIQUE: 4 views of the knee FINDINGS: No acute fracture or dislocation. Moderate to advanced degenerative changes of the knee with near complete loss of medial compartment joint space and tricompartmental osteophytes, slightly progressed from prior Small suprapatellar joint effusion. Soft tissues are unremarkable. XR/XR knee RT 2V IMPRESSION: * No acute osseous abnormality. * Moderate to advanced degenerative changes of the knee, worst involving the medial compartment. Small suprapatellar joint effusion.
[2022-07-29 12:47] LABS: Alanine Aminotransferase 14 U/L (0-31); Albumin Level 4.1 g/dL (3.5-5.0); Alkaline Phosphatase 69 U/L (39-117); Anion Gap 10 (12-20); Aspartate Amino Transferase 17 U/L (5-31); Blood Urea Nitrogen 11 mg/dL (9-16); Calcium 9.4 mg/dL (8.4-10.2); Carbon Dioxide 27 mmol/L (22-29); Chloride 107 mmol/L (96-108); Cholesterol 152 mg/dL; Estimated Glomerular Filt Rate > 60; Glucose Fasting 106 mg/dL (60-99); HDL Cholesterol 53 mg/dL; LDL Cholesterol Calculated 81 mg/dl; Potassium 4.2 mmol/L (3.3-5.1); Sodium 140 mmol/L (135-145); Triglycerides 90 mg/dL
[2022-07-29 12:50] LABS: Vitamin D 25-OH Total 35.3 ng/mL (>30)
[2022-07-29 12:58] LABS: Creatinine Urine 92.52 mg/dL; Microalbumin Urine < 5.0 mg/L
== END 2022-07-29 11:18 | disposition home or self-care (01) ==
LOC: HO.LAB 11:17
PROVIDERS: PCP Internal Medicine; Visit Provider Internal Medicine
DX: M25.561 Pain in right knee (principal); E55.9 Vitamin D deficiency, unspecified; E03.9 Hypothyroidism, unspecified; E11.9 Type 2 diabetes mellitus without complications; E78.5 Hyperlipidemia, unspecified
CPT/HCPCS: 36415; 73560; 80053; 80061; 82043; 82306; 84443

== ENCOUNTER → 2022-09-07 10:56 | Outpatient (BNVA) | payer OTHER, SELFPAY | PROVIDERS: PCP Internal Medicine; Visit Provider Orthopaedic Surgery | DX: M17.11 Unilateral primary osteoarthritis, right knee (principal); E11.65 Type 2 diabetes mellitus with hyperglycemia | CPT/HCPCS: 20610; 99202; J1100 ==

== ENCOUNTER 2022-12-08 16:27 | Outpatient (AMB) | payer OTHER, SELFPAY ==
--- NOTE | 2022-12-08 16:30 | MHC.PC.OV ---
Vital Signs 12/08/22 16:35 Height 4 ft 11 in Weight 137 lb BMI 27.7 BP 136/74 Blood Pressure Location Lt brachial Position Sitting Intake Visit Reasons: dm Intake Note: Patient here for a follow up DM Weatherization And Housing Inspector Required: No Accompanied by: Self / Same As Patient Allergies morphine [MORPHINE] Allergy (Intermediate, Verified 12/08/22 16:45) TACHYCARDIA, palpitations Penicillins Allergy (Intermediate, Verified 12/08/22 16:45) RASH Medication List - Last Reconciled 12/08/22 by Suzie Hooks MD atorvastatin 20 mg PO DAILY 90 days blood sugar diagnostic As directed blood sugar diagnostic (FreeStyle Lite Strips) Use 1 to test blood sugar once a day buspirone 5 mg PO BID cyclobenzaprine 10 mg PO BEDTIME 30 days lancets As directed levothyroxine 88 mcg PO DAILY 90 days meloxicam 15 mg PO DAILY 30 days metformin 500 mg PO BID 90 days omeprazole 20 mg PO DAILY 30 days prazosin 1 mg PO BEDTIME PRN venlafaxine ER 150 mg PO QAM Tobacco use date assessed: 12/08/22 Dental Screening Dental Screen Date: 12/08/22 Did you have a dental visit in the last 12 months?: Yes Did you have a dental problem in the last 6 months where you did not have access to dental care?: No Was dental information given to patient?: Patient has dentist HPI HPI Comments History of Present Illness Details This is a 57-year-old female with diabetes mellitus type 2, dyslipidemia, mild major depression and hypothyroidism comes today complaining of clear vaginal fluid makes with some streaks of blood as per patient. She has hysterectomy but still has over 80s. Will order ultrasound of the bladder. A1c within goal. LDL close to goal. TSH normal. Depression stable with venlafaxine. [facility] Medical History (Updated 12/08/22 @ 16:49 by Suzie Hooks MD) Anxiety Diabetes mellitus Dyslipidemia GERD (gastroesophageal reflux disease) High cholesterol Hypothyroidism Lower back pain Mild recurrent major depression Physical exam Tubular adenoma Surgical History H/O: History of laparoscopic cholecystectomy History of toe surgery History of total abdominal hysterectomy Lipoma Status post breast reduction Family History Father Hypertension Diabetes Mother Hypertension Diabetes Stroke Cancer Paternal Grandmother Cancer Family/Other Mental health disorder Social History Housing: Apartment Alcohol intake: current Alcohol intake frequency: holidays/special occasions only Alcohol type: hard liquor Patient Tobacco Use Status: Never used Tobacco e-Cigarette/Vaping Use: Never Used Second Hand Smoke Exposure: No service: No Current occupational status: disabled Cognitive needs: No Hearing needs: No Vision needs: Yes Questionnaire Thrive Questionnaire Date Thrive assessed: 07/28/22 DEJUAN-7 AMB Questionnaire DEJUAN-7 Date DEJUAN - 7 assessed: 07/28/22 Source: Developed by Drs. Saw Bean, Jhoana Brewer, John Blanton and colleagues, with an educational lisa from [employer]. Review of Systems Const All systems reviewed & are unremarkable except as noted in HPI and below Eyes Reports no additional complaints, Denies change in vision and Denies other visual disturbances Card Denies chest pain at rest, Denies chest pain with activity, Denies edema, Denies irregular heart rhythm, Denies claudication, Denies dyspnea, Denies dyspnea on exertion, Denies orthopnea, Denies paroxysmal nocturnal dyspnea and Denies slow heart rate Resp Denies cough, Denies dyspnea and Denies dyspnea on exertion GI Denies abdominal pain, Denies change in bowel habits, Denies excessive flatus, Denies nausea and Denies vomiting Denies urinary incontinence, Denies urinary hesitancy and Denies urinary urgency Musc Denies abnormal gait, Denies atrophy, Denies deformity and Denies limited range of motion Skin/Breast Denies bleeding lesions, Denies changing lesions and Denies rash Neuro Denies abnormal gait and Denies lack of coordination Physical exam (Primary Care) Vital Signs: Last Vital Signs BP 136/74 12/08/22 16:35 BMI result Body Mass Index 27.7 Tobacco/Smoking Status: Tobacco use Status Tobacco use date assessed 12/08/22 12/08/22 16:33 Patient Tobacco Use Status Never used Tobacco 12/08/22 16:33 e-Cigarette/Vaping Use Never Used 12/08/22 16:33 Thrive Assessment: Date of Thrive Assessment Date Thrive assessed 04/11/23 08/22/23 16:33 Eyes General: appearance normal, both eyes and all related structures Eyelids: Yes eyelids normal Conjunctivae: conjunctivae normal Neck Neck: Yes normal visual inspection and Yes supple Resp Effort & Inspection: normal respiratory effort Auscultation: clear to auscultation bilaterally Cardio Jugular venous distension: no JVD Rate: regular rate Rhythm: regular rhythm Heart sounds: S1 normal heart sound present and S2 normal heart sound present Extrem General: Yes full ROM Results AMB Hemoglobin A1c AMB Hemoglobin A1c 6.2 % Last Edit by RIKY Falcon on 12/08/22 16:43 Results Reviewed Results Reviewed: Laboratory Last Values Hgb A1c (Clinic) 6.2 % (4.0-6.0) H 12/08/22 16:29 Assessment and Plan Assessment & Plan (1) Diabetes mellitus: Code(s): E11.9 - Type 2 diabetes mellitus without complications Qualifiers: Diabetes mellitus type: type 2 Diabetes mellitus mcfp insulin use: without mcfp use Diabetes mellitus complication status: with hyperglycemia Qualified Code(s): E11.65 - Type 2 diabetes mellitus with hyperglycemia Plan: Continue metformin. A1c goal is equal or less than 7%. (2) Dyslipidemia: Code(s): E78.5 - Hyperlipidemia, unspecified Plan: Continue statins. LDL goal is less than 70. (3) Hypothyroidism: Code(s): E03.9 - Hypothyroidism, unspecified Qualifiers: Hypothyroidism type: unspecified Qualified Code(s): E03.9 - Hypothyroidism, unspecified Plan: Continue levothyroxine. Monitor TSH. (4) Mild recurrent major depression: Code(s): F33.0 - Major depressive disorder, recurrent, mild Plan: Continue venlafaxine. Orders: Orders US bladder Today R31.9 - Hematuria, unspecified Comprehensive [place]. Panel Fast 4 Months Z00.00 - Encounter for general adult medical examination without abnormal findings Lipid Panel 4 Months E78.5 - Hyperlipidemia, unspecified Thyroid Stimulating Hormone 4 Months E03.9 - Hypothyroidism, unspecified Vitamin D 25-OH Total 4 Months E55.9 - Vitamin D deficiency, unspecified Microalbumin, Random (w Creat) 4 Months E11.9 - Type 2 diabetes mellitus without complications AMB Hemoglobin A1c Today E11.9 - Type 2 diabetes mellitus without complications Coding Level of Care Code Est Pt Level 4 (25946) Diagnoses Diabetes mellitus E11.65 Diabetes mellitus type: type 2 Diabetes mellitus tank terminal gauger insulin use: without mcfp use Diabetes mellitus complication status: with hyperglycemia Dyslipidemia E78.5 Hypothyroidism E03.9 Hypothyroidism type: unspecified Mild recurrent major depression F33.0 Time Spent (min) 21
[2022-12-08 16:35] VITALS: BP 136/74; BMI 27.7
== END 2022-12-08 16:59 | disposition home or self-care (01) ==
LOC: HO.HMGH 16:27
PROVIDERS: PCP Internal Medicine; Visit Provider Internal Medicine
DX: E11.65 Type 2 diabetes mellitus with hyperglycemia (principal); E78.5 Hyperlipidemia, unspecified; E03.9 Hypothyroidism, unspecified; F33.0 Major depressive disorder, recurrent, mild; E11.9 Type 2 diabetes mellitus without complications
CPT/HCPCS: 83036; 99214

== ENCOUNTER 2022-12-25 13:50 | Outpatient (REF) | payer OTHER, SELFPAY ==
[2022-12-25 15:33] LABS: Alanine Aminotransferase 13 U/L (0-31); Albumin Level 4.1 g/dL (3.5-5.0); Alkaline Phosphatase 64 U/L (39-117); Anion Gap 10 (12-20); Aspartate Amino Transferase 19 U/L (5-31); Bilirubin Total 1.1 mg/dL (0.0-1.0); Blood Urea Nitrogen 10 mg/dL (9-16); Carbon Dioxide 26 mmol/L (22-29); Chloride 108 mmol/L (96-108); Cholesterol 143 mg/dL (<200); Estimated Glomerular Filt Rate > 60; Glucose Fasting 90 mg/dL (60-99); HDL Cholesterol 56 mg/dL (>40); LDL Cholesterol Calculated 73 mg/dL (<100); Potassium 3.8 mmol/L (3.3-5.1); Sodium 140 mmol/L (135-145); Total Protein 7.3 g/dL (6.5-8.0); Triglycerides 71 mg/dL (<150)
[2022-12-25 15:50] LABS: Thyroid Stimulating Hormone 0.77 uIU/mL (0.32-4.0)
== END 2022-12-25 13:51 | disposition home or self-care (01) ==
LOC: HO.LAB 13:50
PROVIDERS: PCP Internal Medicine; Visit Provider Internal Medicine
DX: Z00.00 Encounter for general adult medical examination without abnormal findings (principal); E03.9 Hypothyroidism, unspecified; E78.5 Hyperlipidemia, unspecified; E55.9 Vitamin D deficiency, unspecified
CPT/HCPCS: 36415; 80053; 80061; 82306; 84443

== ENCOUNTER 2022-12-29 16:12 | Outpatient (REF) | payer OTHER, SELFPAY ==
--- NOTE | ~2022-12-29 | US_ITS ---
EXAMINATION: US PELVIS LIMITED (BLADDER) CLINICAL INFORMATION: Hematuria, unspecified. COMPARISON: CT abdomen and pelvis 08/05/2017. TECHNIQUE: Real-time imaging of the bladder. FINDINGS: BLADDER: Well distended and normal. Bilateral ureteral jets are demonstrated. Prevoid bladder volume is 481.09 mL. Postvoid bladder volume is 13.08 mL. US/US bladder IMPRESSION: Unremarkable bladder ultrasound.
== END 2022-12-29 16:13 | disposition home or self-care (01) ==
LOC: HO.US 16:12
PROVIDERS: PCP Internal Medicine; Visit Provider Internal Medicine
DX: R31.9 Hematuria, unspecified (principal)
CPT/HCPCS: 76857

== ENCOUNTER 2023-04-07 16:49 | Outpatient (AMB) | payer OTHER, SELFPAY ==
--- NOTE | 2023-04-07 16:55 | MHC.PC.OV ---
Vital Signs 04/07/23 16:56 Height 4 ft 11 in Weight 139 lb BMI 28.1 BP 130/80 Blood Pressure Location Lt brachial Position Sitting Intake Visit Reasons: dm Intake Note: Patient here for a follow up [facility] Liaison Required: No Accompanied by: Self / Same As Patient Allergies morphine [MORPHINE] Allergy (Intermediate, Verified 04/07/23 17:05) TACHYCARDIA, palpitations Penicillins Allergy (Intermediate, Verified 04/07/23 17:05) RASH Medication List - Last Reconciled 04/07/23 by Suzie Hooks MD atorvastatin 20 mg PO DAILY 90 days blood sugar diagnostic As directed blood sugar diagnostic (FreeStyle Lite Strips) Use 1 to test blood sugar once a day buspirone 5 mg PO BID cyclobenzaprine 10 mg PO BEDTIME 30 days lancets Use 1 lancet once a day levothyroxine 88 mcg PO DAILY 90 days meloxicam 15 mg PO DAILY 30 days metformin 500 mg PO BID 90 days omeprazole 20 mg PO DAILY 30 days prazosin 1 mg PO BEDTIME PRN venlafaxine ER 150 mg PO QAM Tobacco use date assessed: 12/08/22 Dental Screening Dental Screen Date: 04/07/23 Did you have a dental visit in the last 12 months?: No Did you have a dental problem in the last 6 months where you did not have access to dental care?: No Was dental information given to patient?: Patient has dentist HPI HPI Comments History of Present Illness Details This is a 58-year-old female with diabetes mellitus type 2, dyslipidemia, hypothyroidism and mild recurrent major depression that comes today for follow-up on her conditions. A1c within goal. LDL within goal. Last TSH was normal. Depression stable with venlafaxine. Complains of hematuria that has been present for over 4 months. Bladder ultrasound was normal. No chest pain or shortness of breath. Will be referred to Urology. [facility] Medical History (Updated 12/08/22 @ 16:49 by Suzie Hooks MD) Tubular adenoma Physical exam GERD (gastroesophageal reflux disease) Mild recurrent major depression High cholesterol Lower back pain Anxiety Hypothyroidism Dyslipidemia Diabetes mellitus Surgical History History of toe surgery H/O: Lipoma Status post breast reduction History of laparoscopic cholecystectomy History of total abdominal hysterectomy Family History Father Hypertension Diabetes Mother Hypertension Diabetes Stroke Cancer Paternal Grandmother Cancer Family/Other Mental health disorder Social History Housing: Apartment Alcohol intake: current Alcohol intake frequency: holidays/special occasions only Alcohol type: hard liquor Patient Tobacco Use Status: Never used Tobacco e-Cigarette/Vaping Use: Never Used Second Hand Smoke Exposure: No service: No Current occupational status: disabled Cognitive needs: No Hearing needs: No Vision needs: Yes Questionnaire Thrive Questionnaire Date Thrive assessed: 07/28/22 DEJUAN-7 AMB Questionnaire DEJUAN-7 Date DEJUAN - 7 assessed: 07/28/22 Source: Developed by Drs. Saw Bean, Jhoana Brewer, John Blanton and colleagues, with an educational lisa from [employer]. Review of Systems Const All systems reviewed & are unremarkable except as noted in HPI and below Eyes Reports no additional complaints, Denies change in vision and Denies other visual disturbances Card Denies chest pain at rest, Denies chest pain with activity, Denies edema, Denies irregular heart rhythm, Denies claudication, Denies dyspnea, Denies dyspnea on exertion, Denies orthopnea, Denies paroxysmal nocturnal dyspnea and Denies slow heart rate Resp Denies cough, Denies dyspnea and Denies dyspnea on exertion GI Denies abdominal pain, Denies change in bowel habits, Denies excessive flatus, Denies nausea and Denies vomiting Denies urinary incontinence, Denies urinary hesitancy and Denies urinary urgency Musc Denies abnormal gait, Denies atrophy, Denies deformity and Denies limited range of motion Skin/Breast Denies bleeding lesions, Denies changing lesions and Denies rash Neuro Denies abnormal gait, Denies behavioral changes and Denies lack of coordination Psych Denies behavioral changes Physical exam (Primary Care) Vital Signs: Last Vital Signs BP 130/80 04/07/23 16:56 BMI result Body Mass Index 28.1 Tobacco/Smoking Status: Tobacco use Status Tobacco use date assessed 12/08/22 04/07/23 17:02 Patient Tobacco Use Status Never used Tobacco 04/07/23 17:02 e-Cigarette/Vaping Use Never Used 04/07/23 17:02 Thrive Assessment: Date of Thrive Assessment Date Thrive assessed 07/28/22 04/07/23 17:02 Eyes General: appearance normal, both eyes and all related structures Eyelids: Yes eyelids normal Conjunctivae: conjunctivae normal Neck Neck: Yes normal visual inspection and Yes supple Resp Effort & Inspection: normal respiratory effort Auscultation: clear to auscultation bilaterally Cardio Jugular venous distension: no JVD Rate: regular rate Rhythm: regular rhythm Heart sounds: S1 normal heart sound present and S2 normal heart sound present Extrem General: Yes full ROM Office Procedures Flu Questionnaire Does the patient have a severe egg allergy?: No Results AMB Hemoglobin A1c AMB Hemoglobin A1c 6.4 % Last Edit by RIKY Falcon on 04/07/23 17:07 Immunizations flu vacc [id number] 6mos up(PF) 60 mcg(15 mcgx4)/0.5 mL IM syringe Performing Provider: Suzie Hooks MD [facility] Documented (not given) by: RIKY Falcon on 04/07/23 17:14 Reason Not Given: Not Given Results Reviewed Results Reviewed: Laboratory Last Values Hgb A1c (Clinic) 6.4 % (4.0-6.0) H 04/07/23 16:55 Assessment and Plan Assessment & Plan (1) Diabetes mellitus: Code(s): E11.9 - Type 2 diabetes mellitus without complications Qualifiers: Diabetes mellitus type: type 2 Diabetes mellitus assisted insulin use: without terminal press operator use Diabetes mellitus complication status: with hyperglycemia Qualified Code(s): E11.65 - Type 2 diabetes mellitus with hyperglycemia Plan: Continue metformin. A1c goal is equal or less than 7%. (2) Hypothyroidism: Code(s): E03.9 - Hypothyroidism, unspecified Qualifiers: Hypothyroidism type: unspecified Qualified Code(s): E03.9 - Hypothyroidism, unspecified Plan: Continue levothyroxine. (3) Dyslipidemia: Code(s): E78.5 - Hyperlipidemia, unspecified Plan: Continue statins. LDL goal is less than 70. (4) Mild recurrent major depression: Code(s): F33.0 - Major depressive disorder, recurrent, mild Plan: Continue venlafaxine. (5) Hematuria: Code(s): R31.9 - Hematuria, unspecified Plan: Referred to Urology. Orders: Orders Lipid Panel 4 Months E78.5 - Hyperlipidemia, unspecified Vitamin D 25-OH Total 4 Months E55.9 - Vitamin D deficiency, unspecified Comprehensive [place]. Panel Fast 4 Months E11.65 - Type 2 diabetes mellitus with hyperglycemia Thyroid Stimulating Hormone 4 Months E03.9 - Hypothyroidism, unspecified AMB Hemoglobin A1c 04/07/23 E11.9 - Type 2 diabetes mellitus without complications Influenza [id number] Immunization 04/07/23 Z23 - Encounter for immunization Microalbumin, Random (w Creat) 4 Months E11.9 - Type 2 diabetes mellitus without complications Referrals Urology Referral R31.9 - Hematuria, unspecified Coding Level of Care Code Est Pt Level 4 (83078) Diagnoses Type 2 diabetes mellitus with hyperglycemia, without long-term current use of insulin E11.65 Diabetes mellitus type: type 2 Diabetes mellitus terminal press operator insulin use: without terminal press operator use Diabetes mellitus complication status: with hyperglycemia Hypothyroidism, unspecified type E03.9 Hypothyroidism type: unspecified Dyslipidemia E78.5 Mild recurrent major depression F33.0 Hematuria R31.9 Time Spent (min) 23
[2023-04-07 16:56] VITALS: BP 130/80; BMI 28.1
== END 2023-04-07 17:14 | disposition home or self-care (01) ==
LOC: HO.HMGH 16:49
PROVIDERS: PCP Internal Medicine; Visit Provider Internal Medicine
DX: E11.9 Type 2 diabetes mellitus without complications (principal)
CPT/HCPCS: 83036; 99214

== ENCOUNTER 2023-05-06 11:17 | Outpatient (AMB) | payer OTHER, SELFPAY ==
--- NOTE | 2023-05-06 11:18 | MHC.OFFVIS ---
Intake Vital Signs 05/06/23 11:19 Weight 135 lb 12.876 oz BP 119/59 L Blood Pressure Location Lt brachial Position Sitting Pulse 70 Intake Visit Reasons: Abdominal Pain Intake Note: Patient here for abd pain on and off for many years. Patient c/o: abd pain gets worse after eating food. Magnetic Prospecting Supervisor Required: Yes Accompanied by: grandson Allergies morphine [MORPHINE] Allergy (Intermediate, Verified 05/06/23 11:25) TACHYCARDIA, palpitations Penicillins Allergy (Intermediate, Verified 05/06/23 11:25) RASH Medication List - Last Reconciled 05/06/23 by Taty Sen PA-C atorvastatin 20 mg PO DAILY 90 days blood sugar diagnostic As directed blood sugar diagnostic (FreeStyle Lite Strips) Use 1 to test blood sugar once a day buspirone 5 mg PO BID cyclobenzaprine 10 mg PO BEDTIME 30 days lancets Use 1 lancet once a day levothyroxine 88 mcg PO DAILY 90 days meloxicam 15 mg PO DAILY 30 days metformin 500 mg PO BID 90 days omeprazole 20 mg PO DAILY 30 days prazosin 1 mg PO BEDTIME PRN venlafaxine ER 150 mg PO QAM HPI HPI Comments History of Present Illness Details A 58 y/o female refefrred with persistent acid reflux and epigastric pain- She has been taking omeprazole does not feel it has been helpful seems to have more discomfort after eating, bloating gas She has requesting an EGD she is very worried about what with her stomach-she has had long time she has just not complained about it. She is made dietary modifications without benefit-unclear what symptoms make it better or worse Her bowels are normal-no nausea, vomiting weight loss Seen previously for colon screening only at which time she did not c/o acid reflux or abdominal pain- No fever chills PFSH Medical History Tubular adenoma Physical exam GERD (gastroesophageal reflux disease) Mild recurrent major depression High cholesterol Lower back pain Anxiety Hypothyroidism Dyslipidemia Diabetes mellitus Surgical History History of toe surgery H/O: Lipoma Status post breast reduction History of laparoscopic cholecystectomy History of total abdominal hysterectomy Family History Father Hypertension Diabetes Mother Hypertension Diabetes Stroke Cancer Paternal Grandmother Cancer Family/Other Mental health disorder Social History Housing: Apartment Alcohol intake: current Alcohol intake frequency: holidays/special occasions only Alcohol type: hard liquor Patient Tobacco Use Status: Never used Tobacco e-Cigarette/Vaping Use: Never Used Second Hand Smoke Exposure: No service: No Current occupational status: disabled Cognitive needs: No Hearing needs: No Vision needs: Yes Review of Systems Const All systems reviewed & are unremarkable except as noted in HPI and below Card Denies chest pain and Denies dyspnea Resp Denies dyspnea GI Reports belching, Reports bloating, Denies hematochezia, Denies change in bowel habits, Denies nausea and Denies vomiting Physical Exam Vital Signs: Last Vital Signs Pulse 70 05/06/23 11:19 BP 119/59 L 05/06/23 11:19 Const General: cooperative, healthy appearing, comfortable and no acute distress Orientation/consciousness: patient oriented x3 Limitations: language barrier Eyes Sclerae: sclerae normal Resp Effort & Inspection: normal respiratory effort and able to speak in complete sentences Auscultation: clear to auscultation bilaterally, no rales, no rhonchi and no wheezes Cardio Rate: regular rate Rhythm: regular rhythm Heart sounds: S1 normal heart sound present and S2 normal heart sound present GI Palpation (GI): Soft to palpation and nontender Auscultation: normal bowel sounds Skin General skin exam: no rashes or lesions noted Neuro General: patient oriented x3 Extrem General: Yes full ROM Psych Appearance: grossly normal and well kempt Mental Status: mental status grossly normal Speech and movement: Normal speech and movement present Affect: normal affect Attitude: cooperative Thought process: Normal thought process present Thought content: Normal thought content present Insight: Good insight present (Psych) Judgement: Good judgement present (Psych) Assessment & Plan Assessment & Plan (1) GERD (gastroesophageal reflux disease): Comment: acid reflux-nothing specific Code(s): K21.9 - Gastro-esophageal reflux disease without esophagitis Plan HP stool antigen 2 wks-if positive will treat Carafate in the interim EGD- Dr. Gill Orders: Orders H pylori Ag Stool 2 Weeks A04.8 - Other specified bacterial intestinal infections Comprehensive Met. Panel Today K58.9 - Irritable bowel syndrome without diarrhea EDG - GI Use Only Today K21.9 - Gastro-esophageal reflux disease without esophagitis Complete Blood Count Auto Diff Today K21.9 - Gastro-esophageal reflux disease without esophagitis Medications: New sucralfate 1 g (10 mL) PO QIDACHS 420 mL 0RF 4 weeks Patient Instructions: Reviewed reflux precautions Will discontinue omeprazole for 2 weeks may take Carafate in the interim Stool antigen for H pylori in 2 weeks Will call for results 48 hours after submitted Will see her back in office for progress Placed order for EGD-what we are booking out, Encouraged to call questions or concerns Coding Level of Care Code New Pt Level 3 (27546) Diagnoses GERD (gastroesophageal reflux disease) K21.9 Time Spent (min) 20 Comment painter tumbling barrel
[2023-05-06 11:19] VITALS: BP 119/59; PULSE 70
== END 2023-05-06 11:42 | disposition home or self-care (01) ==
PROVIDERS: PCP Internal Medicine; Visit Provider Physician Assistant
DX: K21.9 Gastro-esophageal reflux disease without esophagitis (principal)
CPT/HCPCS: 99213

== ENCOUNTER → 2023-05-06 11:17 | Outpatient (BNVA) | payer OTHER, SELFPAY | PROVIDERS: PCP Internal Medicine; Visit Provider Physician Assistant | DX: K21.9 Gastro-esophageal reflux disease without esophagitis (principal) | CPT/HCPCS: 99212 ==

== ENCOUNTER 2023-05-10 | Outpatient (REF) | payer OTHER, SELFPAY | END 2023-05-10 00:01 | disposition home or self-care (01) | LOC: HO.LNP | PROVIDERS: Visit Provider Physician Assistant | DX: A04.8 Other specified bacterial intestinal infections (principal) | CPT/HCPCS: 87338 ==

== ENCOUNTER 2023-05-31 10:50 | Outpatient (REF) | payer OTHER, SELFPAY ==
--- NOTE | ~2023-05-31 | MM_ITS ---
EXAMINATION: MM SCREENING DIGITAL BREAST TOMOSYNTHESIS, BILATERAL CLINICAL INFORMATION: Screening. Asymptomatic. The patient is status post bilateral breast reduction. COMPARISON: Mammography: This study is compared with prior exams dating back to 2019. TECHNIQUE: Digital breast tomosynthesis is performed in both the craniocaudal and mediolateral oblique views along with computer-aided detection (CAD). Synthesized 2D images are generated from the tomosynthesis. FINDINGS: There are scattered areas of fibroglandular density (ACR BI-RADS breast composition Category b). There are no significant masses, abnormal calcifications, or other abnormalities. There are minimal post reduction changes present in each breast. MM/MM tomosynthesis screening BI IMPRESSION: No mammographic evidence of malignancy. ASSESSMENT: BI-RADS BI-RADS 2 - Benign Findings RECOMMENDATION: Routine annual mammography screening. 1 year F/U This examination should not preclude the clinical evaluation of a suspicious palpable abnormality. This patient's information was entered into a reminder system with a target due date for their next mammogram.
== END 2023-05-31 10:51 | disposition home or self-care (01) ==
LOC: HO.MAMMO 10:50
PROVIDERS: Visit Provider Internal Medicine
DX: Z12.31 Encounter for screening mammogram for malignant neoplasm of breast (principal)
CPT/HCPCS: 77063; 77067

== ENCOUNTER → 2023-05-31 11:00 | Outpatient (BNV) | payer OTHER, SELFPAY | PROVIDERS: Visit Provider Radiology Diagnostic Radiology | DX: Z12.31 Encounter for screening mammogram for malignant neoplasm of breast (principal) | CPT/HCPCS: 77063; 77067 ==

== ENCOUNTER 2023-06-02 10:50 | Outpatient (AMB) | payer OTHER, SELFPAY ==
--- NOTE | 2023-06-02 11:11 | MHC.OFFVIS ---
Intake Intake Visit Reasons: Hematuria Intake Note: New Patient presents for initial visit for Hematuria Urology Medications: none Blood Thinner: none Smoker: No Vending Route Driver Required: Yes Vending Route Driver Name: ANTHONY THOMPSONINGRID Accompanied by: Self / Same As Patient Allergies morphine [MORPHINE] Allergy (Intermediate, Verified 06/02/23 11:39) TACHYCARDIA, palpitations Penicillins Allergy (Intermediate, Verified 06/02/23 11:39) RASH Medication List - Last Reconciled 06/02/23 by SELENA Lin atorvastatin 20 mg PO DAILY 90 days bismuth subsalicylate (Bismuth) 2 tabs PO QID 14 days blood sugar diagnostic As directed blood sugar diagnostic (FreeStyle Lite Strips) Use 1 to test blood sugar once a day buspirone 5 mg PO BID cyclobenzaprine 10 mg PO BEDTIME 30 days doxycycline hyclate 100 mg PO BID 14 days lancets Use 1 lancet once a day levothyroxine 88 mcg PO DAILY 90 days meloxicam 15 mg PO DAILY 30 days metformin 500 mg PO BID 90 days metronidazole 250 mg PO QID 14 days omeprazole 20 mg PO BID 14 days prazosin 1 mg PO BEDTIME PRN sucralfate 1 g (10 mL) PO QIDACHS 4 weeks venlafaxine ER 150 mg PO QAM HPI HPI Comments History of Present Illness Details Mariela is a very pleasant 58-year-old Tajik-speaking female patient of Dr. Geronimo Hooks. She has a past medical history of GERD, recurrent major depression, hypercholesteremia, low back pain, anxiety, hypothyroidism, dyslipidemia, diabetes, and tubular adenoma. She presents to the office today as a new patient for hematuria. In discussion with the patient today she reports to be doing and feeling well. In discussion with the patient today she reports previously undergoing partial hysterectomy at the age of 29 due to a cancerous fibroid she had. She reports following up with her PCP at which time she mentioned noting ongoing vaginal bleeding, odor, and discharge. She reports symptoms to have been present for the last 4 months. She becomes tearful when discussing her symptoms as she is concerned .Discussed referral to [facility] for further assessment and evaluation. In office urinalysis with no microscopic hematuria noted. In review of patient's chart it appears previous urinalysis with recent hematuria noted. She denies any previous smoking history or known workplace chemical exposure. When asked she denies any urinary issues/concerns. She denies urinary urgency, urinary frequency, incontinence, nocturia, hematuria, dysuria, foul smelling urine, changes to urinary stream, flank pain, fever, and or chills. She is happy with her current voiding parameters. [facility] Medical History Tubular adenoma Physical exam GERD (gastroesophageal reflux disease) Mild recurrent major depression High cholesterol Lower back pain Anxiety Hypothyroidism Dyslipidemia Diabetes mellitus Surgical History History of toe surgery H/O: Lipoma Status post breast reduction History of laparoscopic cholecystectomy History of total abdominal hysterectomy Family History Father Hypertension Diabetes Mother Hypertension Diabetes Stroke Cancer Paternal Grandmother Cancer Family/Other Mental health disorder Social History Housing: Apartment Alcohol intake: current Alcohol intake frequency: holidays/special occasions only Alcohol type: hard liquor Patient Tobacco Use Status: Never used Tobacco e-Cigarette/Vaping Use: Never Used Second Hand Smoke Exposure: No service: No Current occupational status: disabled Cognitive needs: No Hearing needs: No Vision needs: Yes Review of Systems Const Reports no additional complaints Eyes Reports no additional complaints ENT Reports no additional complaints Card Reports no additional complaints Resp Reports no additional complaints GI Reports as per HPI Reports as per HPI Musc Reports as per HPI Neuro Reports no additional complaints Psych Reports as per [facility] Endo Reports as per HPI Physical Exam Const General: cooperative, healthy appearing, comfortable, no acute distress, well developed, alert and awake Orientation/consciousness: patient oriented x3 Limitations: no limitations HEENT Head: Yes normal to inspection, Yes normocephalic and Yes atraumatic Ears: hearing grossly normal bilaterally Eyes General: appearance normal, both eyes and all related structures Neck Neck: Yes normal visual inspection and Yes trachea midline Chest Chest palpation & inspection: normal inspection of the chest Resp Effort & Inspection: normal respiratory effort and able to speak in complete sentences Cardio Rate: regular rate GI Inspection: Yes normal to inspection General: Yes no CVA tenderness Back/Spine/Pelvis Back: no CVA tenderness Skin General skin exam: no rashes or lesions noted Neuro General: patient oriented x3 Extrem General: Yes normal to inspection Psych Appearance: grossly normal and well kempt Mental Status: mental status grossly normal Speech and movement: Normal speech and movement present and Clear speech present Affect: normal affect (tearful at times during todays visit ) Attitude: cooperative Thought process: Normal thought process present Thought content: Normal thought content present Results AMB Urinalysis, Automated UA Leukoctes 70 Germain/uL Last Edit by Marianne Navarro CMA on 06/02/23 11:27 UA Nitrite Negative Last Edit by Marianne Navarro CMA on 06/02/23 11:27 UA Urobilinogen 0.2 mg/dL Last Edit by Marianne Navarro CMA on 06/02/23 11:27 UA Protein 0 mg/dL Last Edit by Marianne Navarro CMA on 06/02/23 11:27 UA pH 6.0 Last Edit by Marianne Navarro CMA on 06/02/23 11:27 UA Blood 0 Raghavendra/uL Last Edit by Marianne Navarro CMA on 06/02/23 11:27 UA Specific Delta 1.010 Last Edit by Marianne Navarro CMA on 06/02/23 11:27 UA Ketone Negative Last Edit by Marianne Navarro CMA on 06/02/23 11:27 UA Bilirubin 0 mg/dL Last Edit by Marianne Navarro CMA on 06/02/23 11:27 UA Glucose 0 mg/dL Last Edit by Marianne Navarro [facility] on 06/02/23 11:27 Results Reviewed Results Reviewed: Laboratory Last Values Urine pH (Auto) 6.0 06/02/23 11:25 Specific Delta (Auto) 1.010 06/02/23 11:25 Urine Protein (Auto) 0 mg/dL 06/02/23 11:25 Glucose (UA)(Auto) 0 mg/dL 06/02/23 11:25 Urine Ketones (Auto) Negative 06/02/23 11:25 Urine Blood (Auto) 0 Raghavendra/uL 06/02/23 11:25 Urine Nitrite (Auto) Negative 06/02/23 11:25 Urine Bilirubin (Auto) 0 mg/dL 06/02/23 11:25 Urine Urobilinogen (Auto) 0.2 mg/dL 06/02/23 11:25 Leukocyte Esterase (Auto) 70 Germain/uL 06/02/23 11:25 Assessment & Plan Assessment & Plan (1) Vaginal discharge: Code(s): N89.8 - Other specified noninflammatory disorders of vagina (2) Hematuria: Code(s): R31.9 - Hematuria, unspecified Plan In office urinalysis results reviewed with the patient today; as noted above. Discussed at length potential causes of hematuria however no hematuria noted on UA today In review of patient's chart it appears one episode of microscopic hematuria in 2020 otherwise all other urinalysis with no microscopic hematuria. Discussed referral to manufacturing test engineer for further assessment evaluation. Patient currently denies any bothersome urinary issues or concerns. She reports be happy with current voiding parameters. Follow-up as needed Orders: Orders AMB Urinalysis Automated Today R33.9 - Retention of urine, unspecified Referrals L[employer]OGRAPHIC PRESS [employer]EDER Referral N89.8 - Other specified noninflammatory disorders of vagina Patient Instructions: The patient had an opportunity to ask questions regarding the treatment plan. All questions were answered. Physical exam, labs, and imaging were discussed and reviewed in detail. As well as risks, benefits, and discussion of treatment choices. No major barriers to understanding were identified. The patient expressed understanding and agreement with the above treatment plan. The patient was made aware they should contact our office by phone for worsening of their current condition, the appearance of new symptoms, or with any questions or concerns. Compliance is encouraged with any medications and follow up testing that is ordered. It is a privilege to be allowed the opportunity to participate in? your urological care.? Again, if you have any questions or concerns If you have any questions or concerns please do not hesitate to contact me. The office is [phone]. This note is constructed using voice recognition software. While every effort has been made to ensure accuracy mri technologist errors may have been included. Yours sincerely, SELENA Lin Coding Level of Care Code New Pt Level 3 (34283) Diagnoses Vaginal discharge N89.8 Hematuria R31.9
== END 2023-06-02 11:53 | disposition home or self-care (01) ==
PROVIDERS: PCP Internal Medicine; Visit Provider Nurse Practitioner Family
DX: N89.8 Other specified noninflammatory disorders of vagina (principal); R31.9 Hematuria, unspecified
CPT/HCPCS: 99203

== ENCOUNTER → 2023-06-02 10:50 | Outpatient (BNVA) | payer OTHER, SELFPAY | PROVIDERS: PCP Internal Medicine; Visit Provider Nurse Practitioner Family | DX: N89.8 Other specified noninflammatory disorders of vagina (principal); R31.9 Hematuria, unspecified | CPT/HCPCS: 81003; 99202 ==

== ENCOUNTER 2023-06-04 10:52 | Outpatient (AMB) | payer OTHER, SELFPAY ==
[2023-06-04 10:59] VITALS: BP 138/72; BMI 27.2
--- NOTE | 2023-06-04 10:59 | A.OFFVIS_ITS ---
Intake Vital Signs 06/04/23 10:59 Height 4 ft 11 in Weight 134 lb 7.712 oz BMI 27.2 BP 138/72 Intake Visit Reasons: vag bleeding/vag discharge/referral Self Propelled Hot Mix Roller Operator Required: Yes Self Propelled Hot Mix Roller Operator Language: Rod Greaser Name: Aline LAN Information Interpreted: non-clinical & clinical Carver And Checkerer Specials: Carver And Checkerer Specials Present (Aline LAN) Accompanied by: Self / Same As Patient Allergies morphine [MORPHINE] Allergy (Intermediate, Verified 06/04/23 11:03) TACHYCARDIA, palpitations Penicillins Allergy (Intermediate, Verified 06/04/23 11:03) RASH Post menopausal: Yes HPI HPI Comments History of Present Illness Details Patient is here today with concerns for vaginal spotting over the last year. It has been random, not after intimacy. She reports a vaginal odor. Denies any pelvic pain or urinary symptoms. She feels certain that it is not from the urinary area or the rectum. She reports a hysterectomy at age 29 due to heavy menstrual bleeding and fibroids, cancer was found of the fibroid after removal. [facility] Medical History Tubular adenoma Physical exam GERD (gastroesophageal reflux disease) Mild recurrent major depression High cholesterol Lower back pain Anxiety Hypothyroidism Dyslipidemia Diabetes mellitus Surgical History History of toe surgery H/O: Lipoma Status post breast reduction History of laparoscopic cholecystectomy History of total abdominal hysterectomy Family History Father Hypertension Diabetes Mother Hypertension Diabetes Stroke Cancer Paternal Grandmother Cancer Family/Other Mental health disorder Social History Housing: Apartment Alcohol intake: current Alcohol intake frequency: holidays/special occasions only Alcohol type: hard liquor Patient Tobacco Use Status: Never used Tobacco e-Cigarette/Vaping Use: Never Used Second Hand Smoke Exposure: No service: No Current occupational status: disabled Cognitive needs: No Hearing needs: No Vision needs: Yes Review of Systems Const All systems reviewed & are unremarkable except as noted in HPI and below Physical Exam Vital Signs: Last Vital Signs BP 138/72 06/04/23 10:59 BMI result Body Mass Index 27.2 Const General: cooperative, healthy appearing and no acute distress Orientation/consciousness: patient oriented x3 GI Inspection: Yes normal to inspection Palpation (GI): Soft to palpation and Other GI palpation findings present (Nontender) Rectal Exam - Female: visual inspection normal General: Yes bladder normal to palpation External Female Exam: normal appearance of the urethra Speculum Exam - Vagina: normal appearance of the vagina, normal palpation, normal vaginal discharge and vagina atrophic Speculum Exam - Cervix: Cervix absent (Vaginal cuff present no lesions, excoriations or nodules noted ) Bimanual exam- vagina & uterus: normal bimanual exam, normal palpation, bladder normal to palpation and uterus absent Bimanual Exam- Adnexa, other: normal adnexae Neuro General: patient oriented x3 Assessment & Plan Assessment & Plan (1) Vaginal bleeding: Code(s): N93.9 - Abnormal uterine and vaginal bleeding, unspecified Plan Discussed plan get it all obtain an ultrasound see if there is any abnormalities near the vaginal surgical region. Bleeding could be from urinary source, and sometimes due to atrophic changes, currently unknown etiology. Pap, cultures obtained today. All of her questions and concerns were addressed to the best of my ability and shared decision making. She is agreeable to the plan of care. This note is constructed using voice recognition software. While every effort has been made to ensure accuracy, manager social media errors may have been included. Orders: Orders US pelvic and transvaginal Today N93.9 - Abnormal uterine and vaginal bleeding, unspecified Coding Level of Care Code New Pt Level 4 (77214) Diagnoses Vaginal bleeding N93.9
== END 2023-06-04 14:16 | disposition home or self-care (01) ==
LOC: HO.HWS 10:52
PROVIDERS: PCP Internal Medicine; Visit Provider Advanced Practice Midwife
DX: N93.9 Abnormal uterine and vaginal bleeding, unspecified (principal)
CPT/HCPCS: 99204

== ENCOUNTER 2023-06-04 10:52 | Outpatient (REF) | payer OTHER, SELFPAY ==
[2023-06-04 15:38] LABS: CT PCR NOT DETECTED (Not Detect.); NG PCR NOT DETECTED (Not Detect.)
[2023-06-05 11:36] LABS: BV Int Neg Control Negative (Negative); BV Int Pos Control Positive (Positive)
[2023-06-12 03:59] LABS: HPV mRNA E6/E7 rflx Not Detected (Not Detected)
== END 2023-06-04 10:53 | disposition home or self-care (01) ==
LOC: HO.LNP 10:52
PROVIDERS: PCP Internal Medicine; Visit Provider Advanced Practice Midwife
DX: N89.8 Other specified noninflammatory disorders of vagina (principal); Z11.3 Encounter for screening for infections with a predominantly sexual mode of transmission; Z78.0 Asymptomatic menopausal state
CPT/HCPCS: 0353U; 87480; 87510; 87624; 87660; 88142; 99202

== ENCOUNTER 2023-06-17 10:14 | Outpatient (AMB) | payer OTHER, SELFPAY ==
--- NOTE | 2023-06-17 10:23 | MHC.OFFVIS ---
Intake Vital Signs 06/17/23 10:26 Height 4 ft 11 in Weight 136 lb 10.986 oz BMI 27.6 BP 135/65 Blood Pressure Location Lt brachial Position Sitting Pulse 69 Intake Visit Reasons: 6 week follow up Intake Note: Mariela presents in the office as a 6 week follow up. CC: She states that she had a bacteria in her stomach - she has 3 pills left from the medication treatment and she just wants to know her next step to that. Playground Supervisor Required: Yes Playground Supervisor Name: [id number] Abdiel Allergies morphine [MORPHINE] Allergy (Intermediate, Verified 06/17/23 10:27) TACHYCARDIA, palpitations Penicillins Allergy (Intermediate, Verified 06/17/23 10:27) RASH HPI HPI Comments History of Present Illness Details 58-year-old female follows up with persistent acid reflux-order had been placed for EGD However had her discontinue PPI to submit H pylori stool antigen-that was positive treated with quadruple therapy- she still has a couple of days left complete therapy loose stools-just since she has been on antibiotics Questions regarding possible permanent damage is due to infection, she has much anxiety about this No abdominal pain nausea or vomiting Appetite- good She has no other GI or general complaints She is awaiting EGD- [facility] Medical History Tubular adenoma Physical exam GERD (gastroesophageal reflux disease) Mild recurrent major depression High cholesterol Lower back pain Anxiety Hypothyroidism Dyslipidemia Diabetes mellitus Surgical History History of toe surgery H/O: Lipoma Status post breast reduction History of laparoscopic cholecystectomy History of total abdominal hysterectomy Family History Father Hypertension Diabetes Mother Hypertension Diabetes Stroke Cancer Paternal Grandmother Cancer Family/Other Mental health disorder Social History Housing: Apartment Alcohol intake: current Alcohol intake frequency: holidays/special occasions only Alcohol type: hard liquor Patient Tobacco Use Status: Never used Tobacco e-Cigarette/Vaping Use: Never Used Second Hand Smoke Exposure: No service: No Current occupational status: disabled Cognitive needs: No Hearing needs: No Vision needs: Yes Review of Systems Const All systems reviewed & are unremarkable except as noted in HPI and below GI Reports loose stools Physical Exam Vital Signs: Last Vital Signs Pulse 69 06/17/23 10:26 BP 135/65 06/17/23 10:26 BMI result Body Mass Index 27.6 Const General: cooperative, healthy appearing, comfortable, no acute distress and anxious Orientation/consciousness: patient oriented x3 Limitations: language barrier Eyes Sclerae: sclerae normal Resp Effort & Inspection: normal respiratory effort and able to speak in complete sentences Skin General skin exam: no rashes or lesions noted Neuro General: patient oriented x3 Extrem General: Yes full ROM Psych Appearance: grossly normal and well kempt Mental Status: mental status grossly normal Affect: normal affect and Anxious affect present Attitude: cooperative Thought process: Normal thought process present Thought content: Normal thought content present Insight: Good insight present (Psych) Judgement: Good judgement present (Psych) Assessment & Plan Assessment & Plan (1) H. pylori infection: Code(s): A04.8 - Other specified bacterial intestinal infections Plan: Complete therapy Plan RUBY 4 wks- order placed No anti bx/ ppi x 2 wks Orders: Orders H pylori Ag Stool 4 Weeks A04.8 - Other specified bacterial intestinal infections Medications: New loperamide (Imodium A-D) Take 2 cap after 1st loose stool- One caplet after each subsequent loose stools No more than 4 caps in a 24 hour. 2 mg PO Q6H PRN 30 caps 0RF loose stool Patient Instructions: Discussed H pylori, reassurance offered Awaiting EGD-if neg will offer reassurance Complete course of treatment for H pylori RUBY 4 weeks-order placed-she has aware no antibiotics or PPI for 2 weeks prior to submitting exam She will give trial to Imodium-p.r.n. Encouraged to call questions or concerns Coding Level of Care Code Est Pt Level 3 (71148) Diagnoses H. pylori infection A04.8 Time Spent (min) 25 Comment [id number]
[2023-06-17 10:26] VITALS: BP 135/65; PULSE 69; BMI 27.6
== END 2023-06-17 11:49 | disposition home or self-care (01) ==
PROVIDERS: PCP Internal Medicine; Visit Provider Physician Assistant
DX: A04.8 Other specified bacterial intestinal infections (principal)
CPT/HCPCS: 99213

== ENCOUNTER → 2023-06-17 10:14 | Outpatient (BNVA) | payer OTHER, SELFPAY | PROVIDERS: PCP Internal Medicine; Visit Provider Physician Assistant | DX: A04.8 Other specified bacterial intestinal infections (principal) | CPT/HCPCS: 99212 ==

== ENCOUNTER 2023-06-23 10:24 | Outpatient (REF) | payer OTHER, SELFPAY ==
--- NOTE | ~2023-06-23 | US_ITS ---
EXAMINATION: US PELVIS CLINICAL INFORMATION: Abnormal vaginal bleeding; history of prior hysterectomy. COMPARISON: Pelvic ultrasound dated 12/29/2017. TECHNIQUE: Ultrasound of the pelvis is performed using both transabdominal and transvaginal transducers along with Doppler. Transvaginal imaging is performed due to inadequate visualization transabdominally. FINDINGS: Uterus: Surgically absent. Adnexa: The right ovary is not identified. The left ovary is normal in size and echotexture, measuring 2.3 x 1.3 x 0.9 cm, for a volume of 1.4 mL.The left ovary shows an exophytic 1.7 cm benign, simple follicle, for which no imaging follow-up is recommended. No adnexal mass is seen. There is no free fluid in the cul-de-sac. US/US pelvic and transvaginal IMPRESSION: 1. The uterus is surgically absent. 2. The right ovary is not identified. 3. A 1.7 cm benign, simple left ovarian follicle is seen, for which no imaging follow-up is recommended.
== END 2023-06-23 10:25 | disposition home or self-care (01) ==
LOC: HO.US 10:24
PROVIDERS: PCP Internal Medicine; Visit Provider Advanced Practice Midwife
DX: N93.9 Abnormal uterine and vaginal bleeding, unspecified (principal)
CPT/HCPCS: 76830; 76856

== ENCOUNTER 2023-07-30 10:03 | Outpatient (AMB) | payer OTHER, SELFPAY ==
--- NOTE | 2023-07-30 10:21 | MHC.OFFVIS ---
Intake Vital Signs 07/30/23 10:24 Height 4 ft 11 in Weight 136 lb 10.986 oz BMI 27.6 BP 108/60 Intake Visit Reasons: US follow up/30 mins Plugger Required: Yes Plugger Language: Agriculture Research Director Name: Aline LAN Information Interpreted: non-clinical & clinical Shift Production Associate: Shift Production Associate Present Accompanied by: Self / Same As Patient Allergies morphine [MORPHINE] Allergy (Intermediate, Verified 07/30/23 10:25) TACHYCARDIA, palpitations Penicillins Allergy (Intermediate, Verified 07/30/23 10:25) RASH Is last menstrual period known: Yes Post menopausal: Yes HPI HPI Comments History of Present Illness Details Patient is here today for a follow up on her pelvic ultrasound. She has a history of light spotting over the last year not related to intimacy. She has a history hysterectomy due to heavy menstrual bleeding and fibroid, pathology on the fibroid revealed uterine cancer after resection that was done approximately 30 years ago at the [facility] in [place]. She has not had any bleeding episodes since her last exam. Denies any pelvic pain. She declines exam today due to having her grandchild present for the visit. [facility], [facility] Medical History Tubular adenoma Physical exam GERD (gastroesophageal reflux disease) Mild recurrent major depression High cholesterol Lower back pain Anxiety Hypothyroidism Dyslipidemia Diabetes mellitus Surgical History History of toe surgery H/O: Lipoma Status post breast reduction History of laparoscopic cholecystectomy History of total abdominal hysterectomy Family History Father Hypertension Diabetes Mother Hypertension Diabetes Stroke Cancer Paternal Grandmother Cancer Family/Other Mental health disorder Social History Housing: Apartment Alcohol intake: current Alcohol intake frequency: holidays/special occasions only Alcohol type: hard liquor Patient Tobacco Use Status: Never used Tobacco e-Cigarette/Vaping Use: Never Used Second Hand Smoke Exposure: No service: No Current occupational status: disabled Cognitive needs: No Hearing needs: No Vision needs: Yes Review of Systems Const All systems reviewed & are unremarkable except as noted in HPI and below Endo Reports no additional complaints Physical Exam Vital Signs: Last Vital Signs BP 108/60 07/30/23 10:24 BMI result Body Mass Index 27.6 Const General: cooperative, healthy appearing and no acute distress Psych Appearance: well kempt Attitude: cooperative Thought process: Normal thought process present Assessment & Plan Assessment & Plan (1) Postmenopausal bleeding: Code(s): N95.0 - Postmenopausal bleeding (2) History of uterine cancer: Code(s): Z85.42 - Personal history of malignant neoplasm of other parts of uterus (3) Encounter to discuss test results: Code(s): Z71.2 - Person consulting for explanation of examination or test findings Plan Discussed: Reviewed history and plan of care with Dr. Connolly recommended follow up with the MRI. Discussed with patient at length to examined the pelvic region in detail due to the history of leiomyosarcoma. Discussed findings of pelvic ultrasound today simple cyst noted requiring no follow-up. Plan follow-up in person to discuss results. All of her questions and concerns were addressed to the best of my ability and shared decision making. She is agreeable to the plan of care. This note is constructed using voice recognition software. While every effort has been made to ensure accuracy, biomedical specialist errors may have been included. Orders: Orders MR pelvis wo/w con Today N95.0 - Postmenopausal bleeding, Z85.42 - Personal history of malignant neoplasm of other parts of uterus Coding Level of Care Code Est Pt Level 3 (63441) Diagnoses Postmenopausal bleeding N95.0 History of uterine cancer Z85.42 Encounter to discuss test results Z71.2
[2023-07-30 10:24] VITALS: BP 108/60; BMI 27.6
== END 2023-07-30 10:51 | disposition home or self-care (01) ==
PROVIDERS: PCP Internal Medicine; Visit Provider Advanced Practice Midwife
DX: N95.0 Postmenopausal bleeding (principal); Z85.42 Personal history of malignant neoplasm of other parts of uterus; Z71.2 Person consulting for explanation of examination or test findings
CPT/HCPCS: 99213

== ENCOUNTER → 2023-07-30 10:03 | Outpatient (BNVA) | payer OTHER, SELFPAY | PROVIDERS: PCP Internal Medicine; Visit Provider Advanced Practice Midwife | DX: N95.0 Postmenopausal bleeding (principal); Z85.42 Personal history of malignant neoplasm of other parts of uterus; Z71.2 Person consulting for explanation of examination or test findings | CPT/HCPCS: 99212 ==

== ENCOUNTER 2023-09-15 10:44 | Outpatient (REF) | payer OTHER, SELFPAY ==
--- NOTE | ~2023-09-15 | MR_ITS ---
EXAMINATION: MR PELVIS WITHOUT AND WITH CONTRAST CLINICAL INFORMATION: Postmenopausal bleeding. History of surgical resection of uterine tumor, fibroid, later found to have cancer cells. COMPARISON: Pelvic ultrasound from 12/29/2017 and 06/23/2023. TECHNIQUE: MR imaging of the pelvis is performed using standard sequences on a high-field magnet without and with intravenous administration of 6 mL Gadavist. FINDINGS: UTERUS AND CERVIX: Status post hysterectomy. The vagina has a normal appearance. No soft tissue nodularity or mass at the vaginal cuff. ADNEXA: The atrophied right ovary measures approximately 2 x 1.4 x 1.5 cm. The left ovary is 2.2 x 1.9 x 2.9 cm. A 1.8 x 1.3 x 2.7 cm simple cyst of the posterior left ovary is present. It was 1.8 x 1.5 x 2 cm on 08/05/2017. Since this remains small for many years, it is consistent with a benign cyst. No follow-up imaging recommended/required, if asymptomatic. FREE FLUID trace amount of free fluid is present in the posterior cul-de-sac. No loculated fluid collection. LYMPHOVASCULAR: Normal. No pathologic sized iliac, obturator or inguinal lymph nodes. URINARY BLADDER: Urinary bladder and urethra are normal. GASTROINTESTINAL: No dilated bowel loops. The sigmoid colon and rectum are unremarkable. ABDOMINAL WALL: Prior section with linear hypointense scar at the lower abdominal wall. No abdominal wall hernia. MUSCULOSKELETAL: No acute or suspicious osseous abnormality. No soft tissue mass. MR/MR pelvis wo/w con IMPRESSION: * Status post hysterectomy. * Simple cyst of the posterior left ovary remains similar in size compared to the CT exam from 08/05/2017. No follow-up imaging recommended. * Trace amount of simple-appearing free fluid is present in the pelvic cul-de-sac.
[2023-09-15] MEDS: gadobutroL 7.5 ML VIAL IVPUSH (12:38)
== END 2023-09-15 10:45 | disposition home or self-care (01) ==
LOC: HO.MRI 10:44
PROVIDERS: PCP Internal Medicine; Visit Provider Advanced Practice Midwife
DX: N95.0 Postmenopausal bleeding (principal); Z85.42 Personal history of malignant neoplasm of other parts of uterus
CPT/HCPCS: 72197; A9585

== ENCOUNTER 2023-09-17 12:16 | Outpatient (REF) | payer OTHER, SELFPAY ==
[2023-09-17 13:23] LABS: Alanine Aminotransferase 34 U/L (0-31); Albumin Level 4.1 g/dL (3.5-5.0); Alkaline Phosphatase 66 U/L (39-117); Anion Gap 12 (12-20); Aspartate Amino Transferase 24 U/L (5-31); Bilirubin Total 0.7 mg/dL (0.0-1.0); Blood Urea Nitrogen 13 mg/dL (9-16); Calcium 9.7 mg/dL (8.4-10.2); Carbon Dioxide 25 mmol/L (22-29); Chloride 107 mmol/L (96-108); Cholesterol 170 mg/dL (<200); Estimated Glomerular Filt Rate > 60; Glucose Fasting 95 mg/dL (60-99); HDL Cholesterol 59 mg/dL (>40); LDL Cholesterol Calculated 93 mg/dL (<100); Potassium 3.8 mmol/L (3.3-5.1); Sodium 140 mmol/L (135-145); Total Protein 7.3 g/dL (6.5-8.0); Triglycerides 91 mg/dL (<150)
[2023-09-17 13:38] LABS: Thyroid Stimulating Hormone 0.29 uIU/mL (0.32-4.0); Vitamin D 25-OH Total 36.2 ng/mL (>30)
== END 2023-09-17 12:17 | disposition home or self-care (01) ==
LOC: HO.LAB 12:16
PROVIDERS: PCP Internal Medicine; Visit Provider Internal Medicine
DX: E78.5 Hyperlipidemia, unspecified (principal); E55.9 Vitamin D deficiency, unspecified; E11.65 Type 2 diabetes mellitus with hyperglycemia; E03.9 Hypothyroidism, unspecified
CPT/HCPCS: 36415; 80053; 80061; 82306; 84443

== ENCOUNTER 2023-09-28 16:54 | Outpatient (AMB) | payer OTHER, SELFPAY ==
[2023-09-28 16:56] VITALS: BP 130/70; BMI 26.7
--- NOTE | 2023-09-28 16:56 | A.OFFPC_ITS ---
Vital Signs 09/28/23 16:56 Height 4 ft 11 in Weight 132 lb BMI 26.7 BP 130/70 Blood Pressure Location Lt brachial Position Sitting Intake Visit Reasons: DM Intake Note: Patient here for a follow up DM, lump on left side of lip Wave Solder Offbearer Required: No Accompanied by: Child Allergies morphine [MORPHINE] Allergy (Intermediate, Verified 09/28/23 17:21) TACHYCARDIA, palpitations Penicillins Allergy (Intermediate, Verified 09/28/23 17:21) RASH Medication List - Last Reconciled 09/28/23 by Suzie Hooks MD atorvastatin 40 mg PO BEDTIME 90 days bismuth subsalicylate (Bismuth) 2 tabs PO QID 14 days blood sugar diagnostic As directed blood sugar diagnostic (FreeStyle Lite Strips) Use 1 to test blood sugar once a day buspirone 5 mg PO BID cyclobenzaprine 10 mg PO BEDTIME 30 days lancets Use 1 lancet once a day levothyroxine 75 mcg PO DAILY 90 days loperamide (Imodium A-D) 2 mg PO Q6H PRN meloxicam 15 mg PO DAILY 30 days metformin 500 mg PO BID 90 days omeprazole 20 mg PO BID 14 days prazosin 1 mg PO BEDTIME PRN sucralfate 1 g (10 mL) PO QIDACHS 4 weeks sulfamethoxazole-trimethoprim 800-160 mg (Bactrim DS) 1 tab PO BID 10 days Tobacco use date assessed: 09/28/23 Dental Screening Dental Screen Date: 09/28/23 Did you have a dental visit in the last 12 months?: No Did you have a dental problem in the last 6 months where you did not have access to dental care?: No Was dental information given to patient?: Patient has dentist HPI HPI Comments History of Present Illness Details This is a 58-year-old female with diabetes mellitus type 2, hypothyroidism, pure hypercholesterolemia, mild recurrent major depression and GERD that comes today for follow-up on her conditions. A1c within goal. Last TSH was low and I decrease levothyroxine from 100 mcg to 75 mcg. TSH will be repeated next month. LDL not on goal and I will increase atorvastatin from 20 mg to 40 mg. Depression has been stable with medications and follow-up visit was requested. GERD stable with PPIs. Denies any chest pain or shortness on breath. [facility] Medical History (Updated 09/28/23 @ 18:02 by Suzie Hooks MD) History of uterine cancer Tubular adenoma Physical exam GERD (gastroesophageal reflux disease) Mild recurrent major depression High cholesterol Lower back pain Anxiety Hypothyroidism Dyslipidemia Diabetes mellitus Surgical History History of toe surgery H/O: Lipoma Status post breast reduction History of laparoscopic cholecystectomy History of total abdominal hysterectomy Family History Father Hypertension Diabetes Mother Hypertension Diabetes Stroke Cancer Paternal Grandmother Cancer Family/Other Mental health disorder Social History Housing: Apartment Alcohol intake: current Alcohol intake frequency: holidays/special occasions only Alcohol type: hard liquor Patient Tobacco Use Status: Never used Tobacco e-Cigarette/Vaping Use: Never Used Second Hand Smoke Exposure: No service: No Current occupational status: disabled Cognitive needs: No Hearing needs: No Vision needs: Yes Questionnaire PHQ-9 Over the last 2 weeks, how often have you been bothered by any of the following problems? 1. Little interest or pleasure in doing things: not at all 2. Feeling down, depressed, or hopeless: several days 3. Trouble falling or staying asleep, or sleeping too much: not at all 4. Feeling tired or having little energy: not at all 5. Poor appetite or overeating: not at all 6. Feeling bad about yourself - or that you are a failure or have let yourself or your family down: not at all 7. Trouble concentrating on things, such as reading the newspaper or watching television: not at all 8. Moving or speaking so slowly that other people could have noticed. Or the opposite - being so fidgety or restless that you have been moving around a lot more than usual: not at all 9. Thoughts that you would be better off or of hurting yourself in some way: not at all Total score: 1 Depression Screening Interpretation: Positive Depression Screening Follow-up: Existing condition and Follow-up Visit Requested Depression Screening Done: Yes 73385 - PHQ-9 Billing: Yes Source: Developed by Drs. Saw L. VikasJhoana blakely Kurt Kroenke and colleagues, with an educational lisa from [employer]. Thrive Questionnaire Date Thrive assessed: 09/28/23 I am a: Patient What is your living situation today?: I have a steady place to live Within the past 12 months, did the food you bought not last and you didn't have the money to get more?: Never true Within the past 12 months, did you worry whether your food would run out before you got money to buy more?: Never true Do you have trouble paying for medicines?: No Do you have trouble getting transportation to medical appointments?: No Do you have trouble paying your heating and electricity bill?: No Do you have trouble taking care of your child, family member or friend?: No Do you have trouble with day-to-day activities such as bathing, preparing meals, shopping, managing finances, etc.?: No Are you currently unemployed and looking for a job?: No Are you interested in more education?: No Please select the resources that you would like help with: None Currently or been in a relationship where the following occur: no concerns reported THRIVE Score: 0 AUDIT C Alcohol Use Questionnaire (AUDIT-C) 1. How often do you have a drink containing alcohol?: Monthly or less 2. How many drinks containing alcohol do you have on a typical day when you are drinking?: 1 or 2 3. How often do you have six or more drinks on one occasion?: Never Total Score: 1 DEJUAN-7 AMB Questionnaire DEJUAN-7 Date DEJUAN - 7 assessed: 09/28/23 Feeling nervous, anxious, or on edge: 1 = Several days Not being able to stop or control worryin = Not at all Worrying too much about different things: 0 = Not at all Trouble relaxin = Not at all Being so restless that it is hard to sit still: 0 = Not at all Becoming easily annoyed or irritable: 0 = Not at all Feeling afraid as if something awful might happen: 0 = Not at all Total DEJUAN-7 score (0-4 normal; 5-9 mild; 10-14 moderate; 15-21 severe): 1 Source: Developed by Jhoana Christine Kurt Kroenke and colleagues, with an educational lisa from [employer]. Review of Systems Const All systems reviewed & are unremarkable except as noted in HPI and below Card Denies chest pain at rest, Denies chest pain with activity, Denies edema, Denies irregular heart rhythm, Denies claudication, Denies dyspnea, Denies dyspnea on exertion, Denies orthopnea, Denies paroxysmal nocturnal dyspnea and Denies slow heart rate Resp Denies cough, Denies dyspnea and Denies dyspnea on exertion GI Denies abdominal pain, Denies change in bowel habits, Denies excessive flatus, Denies nausea and Denies vomiting Denies urinary incontinence, Denies urinary hesitancy and Denies urinary urgency Physical exam (Primary Care) Vital Signs: Last Vital Signs BP 130/70 09/28/23 16:56 BMI result Body Mass Index 26.7 Tobacco/Smoking Status: Tobacco use Status Tobacco use date assessed 09/28/23 09/28/23 16:59 Patient Tobacco Use Status Never used Tobacco 09/28/23 16:59 e-Cigarette/Vaping Use Never Used 09/28/23 16:59 PHQ-9: PHQ-9 Score PHQ-9: Total score 1 09/28/23 17:23 Depression Screening Interpretation: Positive Depression Screening Follow-up: Existing condition and Follow-up Visit Requested Thrive Assessment: Date of Thrive Assessment Date Thrive assessed 09/28/23 09/28/23 16:59 Currently or been in a relationship where the following occur: no concerns reported Resp Effort & Inspection: normal respiratory effort Auscultation: clear to auscultation bilaterally Cardio Jugular venous distension: no JVD Rate: regular rate Rhythm: regular rhythm Heart sounds: S1 normal heart sound present and S2 normal heart sound present Extrem General: Yes full ROM Results AMB Hemoglobin A1c AMB Hemoglobin A1c 5.9 % Last Edit by RIKY Falcon on 09/28/23 17:1 8 Results Reviewed Results Reviewed: Laboratory Last Values Hgb A1c (Clinic) 5.9 % (4.0-6.0) 09/28/23 17:05 Assessment and Plan Assessment & Plan (1) Diabetes mellitus: Code(s): E11.9 - Type 2 diabetes mellitus without complications Qualifiers: Diabetes mellitus type: type 2 Diabetes mellitus [facility] insulin use: without [facility] use Diabetes mellitus complication status: with hyperglycemia Qualified Code(s): E11.65 - Type 2 diabetes mellitus with hyperglycemia Plan: Continue metformin. A1c goal is equal or less than 7%. (2) Hypothyroidism: Code(s): E03.9 - Hypothyroidism, unspecified Qualifiers: Hypothyroidism type: unspecified Qualified Code(s): E03.9 - Hypothyroidism, unspecified Plan: Continue levothyroxine 75 mcg. Repeat TSH 6 weeks after starting that dose. (3) Dyslipidemia: Code(s): E78.5 - Hyperlipidemia, unspecified Plan: Increase statin from 20 mg to 40 mg. LDL goal is less than 70. (4) Mild recurrent major depression: Code(s): F33.0 - Major depressive disorder, recurrent, mild Plan: No treatment needed right now. Follow-up visit requested. (5) GERD (gastroesophageal reflux disease): Comment: acid reflux-nothing specific Code(s): K21.9 - Gastro-esophageal reflux disease without esophagitis Qualifiers: Esophagitis presence: esophagitis presence not specified Qualified Code(s): K21.9 - Gastro-esophageal reflux disease without esophagitis Plan: Continue PPIs. Orders: Orders AMB Hemoglobin A1c Today E11.65 - Type 2 diabetes mellitus with hyperglycemia Medications: New sulfamethoxazole-trimethoprim 800-160 mg (Bactrim DS) 1 tab PO BID 20 tabs 0RF 10 days atorvastatin 40 mg PO BEDTIME 90 tabs 1RF 90 days Discontinued atorvastatin Discontinued Reason: Patient Completed Course 20 mg PO DAILY 90 tabs 3RF 90 days Coding Level of Care Code Est Pt Level 4 (10483) Complex EM visit Add On G2211 Diagnoses Type 2 diabetes mellitus with hyperglycemia, without long-term current use of insulin E11.65 Diabetes mellitus type: type 2 Diabetes mellitus remote computer terminal operator insulin use: without remote computer terminal operator use Diabetes mellitus complication status: with hyperglycemia Hypothyroidism, unspecified type E03.9 Hypothyroidism type: unspecified Dyslipidemia E78.5 Mild recurrent major depression F33.0 Gastroesophageal reflux disease, unspecified whether esophagitis present K21.9 Esophagitis presence: esophagitis presence not specified Time Spent (min) 23
== END 2023-09-28 17:28 | disposition home or self-care (01) ==
PROVIDERS: PCP Internal Medicine; Visit Provider Internal Medicine
DX: E11.65 Type 2 diabetes mellitus with hyperglycemia (principal); F33.0 Major depressive disorder, recurrent, mild; E03.9 Hypothyroidism, unspecified; E78.5 Hyperlipidemia, unspecified; K21.9 Gastro-esophageal reflux disease without esophagitis
CPT/HCPCS: 83036; 99214; G2211

== ENCOUNTER 2023-10-01 10:53 | Day surgery (SDC) | payer OTHER, SELFPAY ==
--- NOTE | 2023-09-29 10:54 | HO.ANESPROP2 ---
Documented by User: Stephanie Boyce NP 09/29/23 10:58 HPI - Anesthesia Eval Consult details Narrative: 58yo F for Upper Endoscopy PMFSH Active Problems Active Problems: All Active Problems H. pylori infection (Acute) Hematuria (Acute) Osteoarthritis of left knee (Acute) Osteoarthritis of right knee (Acute) Right knee pain (Acute) Skin lesion (Acute) Diverticulosis of colon (Acute) Eyelid lesion (Acute) Vaginal discharge (Acute) Encounter for screening colonoscopy (Acute) Tubular adenoma (Acute) Physical exam (Acute) GERD (gastroesophageal reflux disease) (Acute) Mild recurrent major depression (Acute) Lower back pain (Acute) Anxiety (Acute) Hypothyroidism (Acute) Dyslipidemia (Acute) Diabetes mellitus (Acute) Past Medical History Medical History History of uterine cancer Tubular adenoma Physical exam GERD (gastroesophageal reflux disease) Mild recurrent major depression High cholesterol Lower back pain Anxiety Hypothyroidism Dyslipidemia Diabetes mellitus Family History Family History Father Hypertension Diabetes Mother Hypertension Diabetes Stroke Cancer Paternal Grandmother Cancer Family/Other Mental health disorder Family history of problems with anesthesia: No Surgical History Surgical History History of toe surgery H/O: Lipoma Status post breast reduction History of laparoscopic cholecystectomy History of total abdominal hysterectomy History of Problems with Anesthesia: No Social History Social History Housing: Apartment Alcohol intake: current Alcohol intake frequency: holidays/special occasions only Alcohol type: hard liquor Patient Tobacco Use Status: Never used Tobacco e-Cigarette/Vaping Use: Never Used Second Hand Smoke Exposure: No Use of substances other than those prescribed or required for medical reasons: No Are you DNR?: No Advance Directives: No Advance Directives Information Provided: Yes service: No Current occupational status: disabled Cognitive needs: No Hearing needs: No Vision needs: Yes Meds Allergies Allergy/AdvReac Type Severity Reaction Status Date / Time morphine [MORPHINE] Allergy Intermediate TACHYCARDIA, Verified 10/01/23 11:22 palpitations Penicillins Allergy Intermediate RASH Verified 10/01/23 11:22 Home Medications ?Medication ?Instructions ?Recorded ?Confirmed ?Last Taken ?Type blood sugar diagnostic #10 ea 01/17/20 09/28/23 Unknown History prazosin 1 mg capsule 1 mg PO BEDTIME PRN nightmares 01/17/20 09/28/23 Unknown History buspirone 5 mg tablet 5 mg PO BID anxiety 12/16/21 10/01/23 09/30/23 History Exam Pertinent Lab Results Pertinent Lab Results: Laboratory Tests 01/01/22 09/17/23 14:14 12:33 WBC 6.6 Hgb 12.5 Hct 39.2 Plt Count 279 Sodium 140 Potassium 3.8 Chloride 107 Carbon Dioxide 25 BUN 13 Creatinine 0.72 Assessment and Plan Assessment Anesthesia Assessment: Chart Reviewed Final Anesthetic Review Family History of Problems with Anesthesia: No History of Problems with Anesthesia: No Documented by User: Kavita Rollins MD 10/01/23 13:52 [facility] Past Medical History Medical History History of uterine cancer Tubular adenoma Physical exam GERD (gastroesophageal reflux disease) Mild recurrent major depression High cholesterol Lower back pain Anxiety Hypothyroidism Dyslipidemia Diabetes mellitus Family History Family History Father Hypertension Diabetes Mother Hypertension Diabetes Stroke Cancer Paternal Grandmother Cancer Family/Other Mental health disorder Surgical History Surgical History History of toe surgery H/O: Lipoma Status post breast reduction History of laparoscopic cholecystectomy History of total abdominal hysterectomy Social History Social History Housing: Apartment Alcohol intake: current Alcohol intake frequency: holidays/special occasions only Alcohol type: hard liquor Patient Tobacco Use Status: Never used Tobacco e-Cigarette/Vaping Use: Never Used Second Hand Smoke Exposure: No Use of substances other than those prescribed or required for medical reasons: No Are you DNR?: No Advance Directives: No Advance Directives Information Provided: Yes service: No Current occupational status: disabled Cognitive needs: No Hearing needs: No Vision needs: Yes Meds Allergies Allergy/AdvReac Type Severity Reaction Status Date / Time morphine [MORPHINE] Allergy Intermediate TACHYCARDIA, Verified 10/01/23 11:22 palpitations Penicillins Allergy Intermediate RASH Verified 10/01/23 11:22 Home Medications ?Medication ?Instructions ?Recorded ?Confirmed ?Last Taken ?Type blood sugar diagnostic #10 ea 01/17/20 09/28/23 Unknown History prazosin 1 mg capsule 1 mg PO BEDTIME PRN nightmares 01/17/20 09/28/23 Unknown History buspirone 5 mg tablet 5 mg PO BID anxiety 12/16/21 10/01/23 09/30/23 History Exam Airway Mallampati Class: II (implant front top tooth) TM Dist: >3cm Neck ROM: Full Heart: rrr Lungs: cta Assessment and Plan Assessment Anesthesia Assessment: Anesthesia Plan Discussed Final Anesthetic Review NPO: Yes ASA Class: II Final Preanesthetic Review: No Changes in Pt Med Stat, Meds/Allgs Chart Reviewed and Consent Obtained/Reviewed Patient Risk: Intermediate Procedure Risk: Intermediate Anesthetic Plan Anesthetic Plan: MAC: Disposition: Standard PACU
[2023-09-29 12:57] VITALS: BMI 27.5
--- NOTE | 2023-10-01 11:03 | MHC.SHP ---
Pre-Procedural Eval Section A - 24 Hr Update-Section A only Date of Service: 10/01/23 The patient is an INPATIENT: No The patient has been examined within 24 hours of the surgical procedure. The History & Physical has been completed within 30 days and I have reviewed it.: No Section B - Complete if H&P > 30 days Chief Complaint: GERD, FU H Pylori infection Relevant Family History (Specify if Yes): No Relevant Social History: None Present Medications: see Short Stay Collaborative assessment Medical History: Significant History (GERD (gastroesophageal reflux disease) Mild recurrent major depression High cholesterol Lower back pain Anxiety Hypothyroidism Dyslipidemia Diabetes mellitus) History of Previous Operations: Relevant previous surgery/procedure and date(s) (History of toe surgery H/O: Lipoma Status post breast reduction History of laparoscopic cholecystectomy History of total abdominal hysterectomy) Allergies: Allergies Allergy/AdvReac Type Severity Reaction Status Date / Time morphine [MORPHINE] Allergy Intermediate TACHYCARDIA, Verified 09/28/23 17:21 palpitations Penicillins Allergy Intermediate RASH Verified 09/28/23 17:21 Review of Systems Sugical H&P ROS: Negative: Constitution, Cardiovascular, Respiratory and Gastrointestinal Exam Surgical H&P Exam: Normal: Heart, Normal: Lungs, Normal: Extremities and Normal: Abdomen Plan Diagnosis/Plan: Unchanged I have reviewed the history and physical and performed a pertinent physical examination on my patient. No changes have occurred unless specified. Time Spent With Patient Time: Total time managing care of this patient today ____ minutes.
[2023-10-01 11:06] VITALS: BMI 26.3
[2023-10-01 11:23] VITALS: BP 137/64; PULSE 72; RESP 16; TEMP 36.3; O2SAT 98
[2023-10-01] MEDS: Lactated Ringers 1,000 ML 100 ML IVCONT (11:25)
[2023-10-01 11:32] LABS: Glucose, Whole Blood 107 mg/dL (60-115)
--- NOTE | 2023-10-01 14:13 | W.PM.OPN ---
Operative Note Operative Note Date of Service: 10/01/23 Narrative: FLEXIBLE TRANSORAL UPPER GASTROINTESTINAL ENDOSCOPY WITH BIOPSIES Pre-op diagnosis: GERD, FU of H pylori infection, Post-op diagnosis: GERD, Hiatal hernia, erosive esophagitis and Gastritis, Endoscopist:? Nicky Gill MD Anesthesia:?MAC UPPER ENDOSCOPY Consent: Indications for the procedure and potential complications of bleeding, perforation, reaction to medications and missed diagnosis were discussed with the patient and informed consent was obtained. Instrument: Olympus GIF H 190 mid size upper endoscope Monitoring: Vital signs and clinical assessment, continuous EKG monitoring, Pulse oximetry, Carbon Dioxide monitoring and blood pressure monitoring were done throughout the procedure. Procedure: The patient was placed in the left lateral decubitis position and pre-procedure medications were administered and a bite block was placed. The endoscope was inserted into the mouth and advanced under direct vision to the third part of duodenum. A careful inspection was made as the upper endoscope was withdrawn including a retroflexed examination of the proximal stomach; Findings and interventions are described below. Findings: Larynx: Normal Esophagus: GE junction at 34 cms, small hiatal hernia 34 to 36 cms. Small 0.5 to 1 cms chronic appearing erosions with LA Grade A esophagitis Stomach: Moderate diffuse gastric erythema - biopsies were obtained from the body and antrum. Grade 2 flap valve on retroflexed examination of the cardia. Duodenum: Normal bulb and descending duodenum Intervention: Biopsies as noted above Impression and Post Procedure Diagnosis: Endoscopy Findings: ESOPHAGUS: small hiatal hernia 34 to 36 cms. Small 0.5 to 1 cms chronic appearing erosions with LA Grade A esophagitis STOMACH: Moderate diffuse gastric erythema - biopsies were obtained from the antrum for histology and HP culture and sensitivity. Plan: Pt has a FU appointment on 11/18/23 with BHARATH De La Paz Consider further evaluation with a barium swallow to assess severity of acid reflux. Above findings were reviewed with the patient and relevant handouts were given and the discharge area. Specimens and Sources: : Specimen A. gastric antrum for H. pylori culture, [facility]ST code [id number] sent to [facility] ? BIOPSIES SHOWED: A. Stomach, antrum, biopsy: Gastric antral mucosa with mild to moderate chronic inactive gastritis and few Helicobacter pylori organisms identified; negative for intestinal metaplasia and dysplasia. B. Stomach, body, biopsy: Gastric body mucosa with moderate chronic active gastritis and numerous Helicobacter pylori organisms identified; negative for intestinal metaplasia and dysplasia.
[2023-10-01 14:15] VITALS: BP 91/40; PULSE 75; RESP 16; TEMP 36.4; O2SAT 97
[2023-10-01 14:20] VITALS: BP 104/52
[2023-10-01 14:30] VITALS: BP 112/60; PULSE 72; RESP 16; TEMP 36.6; O2SAT 98
[2023-10-01 14:40] VITALS: BP 120/63; PULSE 69; RESP 16; TEMP 36.3; O2SAT 99
== END 2023-10-01 15:30 | disposition home or self-care (01) ==
PROVIDERS: PCP Internal Medicine; Visit Provider Internal Medicine Gastroenterology
PROC: 0DJ08ZZ Inspection of Upper Intestinal Tract, Via Natural or Artificial Opening Endoscopic (ICD-10-PCS; CPT 43235; principal; 2023-10-01 12:50)
DX: K21.00 Gastro-esophageal reflux disease with esophagitis, without bleeding (principal); K29.70 Gastritis, unspecified, without bleeding; B96.81 Helicobacter pylori [H. pylori] as the cause of diseases classified elsewhere; K44.9 Diaphragmatic hernia without obstruction or gangrene; E11.9 Type 2 diabetes mellitus without complications; Z88.0 Allergy status to penicillin; Z88.5 Allergy status to narcotic agent
CPT/HCPCS: 43239; 36415; 82947; 87081; 88305; 88313; 88342; J2704

== ENCOUNTER → 2023-10-01 10:53 | Outpatient (BNV) | payer OTHER, SELFPAY | PROVIDERS: PCP Internal Medicine; Visit Provider Internal Medicine Gastroenterology | DX: K21.00 Gastro-esophageal reflux disease with esophagitis, without bleeding (principal); K29.70 Gastritis, unspecified, without bleeding | CPT/HCPCS: 43239 ==

== ENCOUNTER 2024-02-09 16:31 | Outpatient (AMB) | payer OTHER, SELFPAY ==
--- NOTE | 2024-02-09 16:39 | MHC.PC.OV ---
Vital Signs 02/09/24 16:45 Height 4 ft 11 in Weight 135 lb BMI 27.3 BP 122/70 Blood Pressure Location Lt brachial Position Sitting Intake Visit Reasons: annual pe-dm Intake Note: Patient here for a physical exam Contact Lens Blocker And Cutter Required: No Information Interpreted: clinical only Accompanied by: Grand Child Allergies morphine [MORPHINE] Allergy (Intermediate, Verified 02/09/24 17:04) TACHYCARDIA, palpitations Penicillins Allergy (Intermediate, Verified 02/09/24 17:04) RASH Sulfa (Sulfonamide Antibiotics) Allergy (Intermediate, Verified 02/09/24 17:04) rash Medication List - Last Reconciled 02/09/24 by Suzie Hooks MD atorvastatin 40 mg PO BEDTIME 90 days bismuth subsalicylate (Bismuth) 2 tabs PO QID 14 days blood sugar diagnostic As directed blood sugar diagnostic (FreeStyle Lite Strips) Use 1 to test blood sugar once a day buspirone 5 mg PO BID cyclobenzaprine 10 mg PO BEDTIME 30 days lancets Use 1 lancet once a day levothyroxine 75 mcg PO DAILY 90 days loperamide (Imodium A-D) 2 mg PO Q6H PRN meloxicam 15 mg PO DAILY 30 days metformin 500 mg PO BID 90 days nitrofurantoin macrocrystal 100 mg PO BID 5 days omeprazole 20 mg PO BID 14 days prazosin 1 mg PO BEDTIME PRN sucralfate 1 g (10 mL) PO QIDACHS 4 weeks Tobacco use date assessed: 09/28/23 Dental Screening Dental Screen Date: 09/28/23 HPI HPI Comments History of Present Illness Details This is a 58-year-old female with diabetes mellitus type 2 and mild recurrent major depression that comes for her physical exam. A1c within goal. Last diabetic eye exam was 4 months ago showing no diabetic retinopathy. Has history of hysterectomy due to uterine cancer and last Pap smear was 2023. Colonoscopy done 2021. Mammogram done 2023. Depression is in remission. Complains of chest pain that can happen at rest located on left side of the chest associated with left arm numbness. I will order EKG. [facility] Medical History (Updated 02/09/24 @ 17:10 by Suzie Hooks MD) History of uterine cancer Tubular adenoma Physical exam GERD (gastroesophageal reflux disease) Mild recurrent major depression High cholesterol Lower back pain Anxiety Hypothyroidism Dyslipidemia Diabetes mellitus Surgical History History of toe surgery H/O: Lipoma Status post breast reduction History of laparoscopic cholecystectomy History of total abdominal hysterectomy Family History Father Hypertension Diabetes Mother Hypertension Diabetes Stroke Cancer Paternal Grandmother Cancer Family/Other Mental health disorder Social History Housing: Apartment Alcohol intake: current Alcohol intake frequency: holidays/special occasions only Alcohol type: hard liquor Patient Tobacco Use Status: Never used Tobacco e-Cigarette/Vaping Use: Never Used Second Hand Smoke Exposure: No service: No Current occupational status: disabled Cognitive needs: No Hearing needs: No Vision needs: Yes Questionnaire Thrive Questionnaire Date Thrive assessed: 09/28/23 DEJUAN-7 AMB Questionnaire DEJUAN-7 Date DEJUAN - 7 assessed: 09/28/23 Source: Developed by Drs. Saw Bean, Jhoana Brewer, John Blanton and colleagues, with an educational lisa from [employer]. Review of Systems Const All systems reviewed & are unremarkable except as noted in HPI and below Card Reports chest pain at rest, Denies chest pain with activity, Denies edema, Denies irregular heart rhythm, Denies claudication, Denies dyspnea, Denies dyspnea on exertion, Denies orthopnea, Denies paroxysmal nocturnal dyspnea and Denies slow heart rate Resp Denies cough, Denies dyspnea and Denies dyspnea on exertion Physical exam (Primary Care) Vital Signs: Last Vital Signs BP 122/70 02/09/24 16:45 BMI result Body Mass Index 27.3 Tobacco/Smoking Status: Tobacco use Status Tobacco use date assessed 09/28/23 02/09/24 16:48 Patient Tobacco Use Status Never used Tobacco 02/09/24 16:48 e-Cigarette/Vaping Use Never Used 02/09/24 16:48 Thrive Assessment: Date of Thrive Assessment Date Thrive assessed 09/28/23 02/09/24 16:48 HENMT Head: Yes normal to inspection, Yes normocephalic and Yes atraumatic Ears: external ears normal Eyes General: appearance normal, both eyes and all related structures Eyelids: Yes eyelids normal Conjunctivae: conjunctivae normal Neck Neck: Yes normal visual inspection and Yes supple Resp Effort & Inspection: normal respiratory effort Auscultation: clear to auscultation bilaterally Cardio Jugular venous distension: no JVD Rate: regular rate Rhythm: regular rhythm Heart sounds: S1 normal heart sound present and S2 normal heart sound present GI Inspection: Yes normal to inspection Palpation (GI): Soft to palpation and nontender Auscultation: normal bowel sounds Skin General skin exam: no rashes or lesions noted Neuro General: no focal motor deficits Extrem General: Yes full ROM Psych Appearance: grossly normal Results AMB Hemoglobin A1c AMB Hemoglobin A1c 5.9 % Last Edit by RIKY Falcon on 02/09/24 16:54 Results Reviewed Results Reviewed: Laboratory Last Values Hgb A1c (Clinic) 5.9 % (4.0-6.0) 02/09/24 16:49 Coding Level of Care Code Est Pt Level 3 (66848) Est Pt Prev Care 40-64y(15427) Diagnoses Physical exam Z00.00 Mild recurrent major depression F33.0 Type 2 diabetes mellitus with hyperglycemia, without long-term current use of insulin E11.65 Diabetes mellitus type: type 2 Diabetes mellitus long-term insulin use: without long-term use Diabetes mellitus complication status: with hyperglycemia Time Spent (min) 33 Assessment & Plan Assessment & Plan (1) Physical exam: Code(s): Z00.00 - Encounter for general adult medical examination without abnormal findings Category: Medical Plan: Repeat in a year. (2) Mild recurrent major depression: Code(s): F33.0 - Major depressive disorder, recurrent, mild Category: Medical Plan: In remission. (3) Diabetes mellitus: Code(s): E11.9 - Type 2 diabetes mellitus without complications Category: Medical Qualifiers: Diabetes mellitus type: type 2 Diabetes mellitus long-term insulin use: without intermediate designer use Diabetes mellitus complication status: with hyperglycemia Qualified Code(s): E11.65 - Type 2 diabetes mellitus with hyperglycemia Plan: Continue metformin. A1c goal is equal or less than 7%. Orders: Orders ECG 12 lead EKG Today R07.9 - Chest pain, unspecified Lipid Panel Today E78.5 - Hyperlipidemia, unspecified, R07.9 - Chest pain, unspecified AMB Hemoglobin A1c Today E11.65 - Type 2 diabetes mellitus with hyperglycemia Comprehensive Met. Panel Today R07.9 - Chest pain, unspecified Thyroid Stimulating Hormone Today E03.9 - Hypothyroidism, unspecified Microalbumin, Random (w Creat) Today R80.9 - Proteinuria, unspecified Vitamin D 25-OH Total Today E55.9 - Vitamin D deficiency, unspecified
[2024-02-09 16:45] VITALS: BP 122/70; BMI 27.3
== END 2024-02-09 17:14 | disposition home or self-care (01) ==
PROVIDERS: PCP Internal Medicine; Visit Provider Internal Medicine
DX: Z00.00 Encounter for general adult medical examination without abnormal findings (principal); R07.9 Chest pain, unspecified; F33.0 Major depressive disorder, recurrent, mild; E11.65 Type 2 diabetes mellitus with hyperglycemia

== ENCOUNTER → 2024-02-09 16:31 | Outpatient (BNVA) | payer OTHER, SELFPAY | PROVIDERS: PCP Internal Medicine; Visit Provider Internal Medicine | DX: Z00.00 Encounter for general adult medical examination without abnormal findings (principal); F33.0 Major depressive disorder, recurrent, mild; E11.65 Type 2 diabetes mellitus with hyperglycemia; Z79.84 Long term (current) use of oral hypoglycemic drugs | CPT/HCPCS: 83036; 99212; 99396 ==

== ENCOUNTER 2024-02-10 10:26 | Outpatient (REF) | payer OTHER, SELFPAY ==
[2024-02-10 10:53] LABS: MANUAL DIFF FLAG NO
--- NOTE | 2024-02-10 11:02 | ECG_ITS ---
Test Reason : CHEST PAIN Blood Pressure : / mmHG Vent. Rate : 070 BPM Atrial Rate : 070 BPM P-R Int : 166 ms QRS Dur : 084 ms QT Int : 374 ms P-R-T Axes : 040 026 031 degrees QTc Int : 403 ms Normal sinus rhythm Normal ECG When compared with ECG of 14-APR-2021 13:10, No significant change was found Referred By: Suzie Hooks Electronically Signed By:Jarret Menjivar
[2024-02-10 11:08] LABS: Basophils Percent Auto 0.4 % (0-2); Eosinophils Absolute Auto 0.1 X10*3/uL (0.0-0.4); Eosinophils Percent Auto 2.1 % (0-4); Hematocrit 36.3 % (37.0-47.0); Hemoglobin 12.2 g/dl (12.0-16.0); Imm Gran Abs Auto 0.02 X10*3/uL (0.00-0.03); Imm Gran Pct Auto 0.4 % (0.0-0.4); Lymphocytes Absolute Auto 2.2 X10*3/uL (1.2-4.9); Lymphocytes Percent Auto 38.5 % (20-40); Mean Corpuscular HGB Conc 33.6 g/dl (31.0-35.0); Mean Corpuscular Hemoglobin 30.8 pg (27.0-33.0); Mean Corpuscular Volume 91.7 fL (80.0-98.0); Mean Platelet Volume 10.4 fL (9.4-12.3); Monocytes Absolute Auto 0.4 X10*3/uL (0.1-1.2); Monocytes Percent Auto 7.3 % (2-11); Neutrophils Absolute Auto 2.9 x10*3/uL (2.0-8.3); Neutrophils Percent Auto 51.3 % (45-73); Platelet Count 271 X10*3/uL (160-400); Red Blood Count 3.96 X10*6/uL (4.20-5.50); Red Cell Distribution Width 12.3 % (11.0-16.0); White Blood Count 5.6 X10*3/uL (4.8-10.8)
[2024-02-10 11:51] LABS: Microalbumin Urine < 5.0 mg/L
[2024-02-10 12:00] LABS: Alanine Aminotransferase 18 U/L (0-31); Albumin Level 3.9 g/dL (3.5-5.0); Alkaline Phosphatase 68 U/L (39-117); Anion Gap 10 (12-20); Aspartate Amino Transferase 23 U/L (5-31); Bilirubin Total 0.8 mg/dL (0.0-1.0); Blood Urea Nitrogen 13 mg/dL (9-16); Calcium 9.5 mg/dL (8.4-10.2); Carbon Dioxide 28 mmol/L (22-29); Chloride 107 mmol/L (96-108); Cholesterol 154 mg/dL (<200); Estimated Glomerular Filt Rate > 60; Glucose Random 104 mg/dL (60-115); HDL Cholesterol 60 mg/dL (>40); LDL Cholesterol Calculated 77 mg/dL (<100); Sodium 141 mmol/L (135-145); Total Protein 7.1 g/dL (6.5-8.0); Triglycerides 86 mg/dL (<150)
[2024-02-10 12:02] LABS: Vitamin D 25-OH Total 35.9 ng/mL (>30)
[2024-02-10 12:03] LABS: Thyroid Stimulating Hormone 1.26 uIU/mL (0.32-4.0)
== END 2024-02-10 10:27 | disposition home or self-care (01) ==
LOC: HO.LAB 10:26
PROVIDERS: Physician Assistant; PCP Internal Medicine; Visit Provider Internal Medicine
DX: K21.9 Gastro-esophageal reflux disease without esophagitis (principal); K58.9 Irritable bowel syndrome, unspecified; E78.5 Hyperlipidemia, unspecified; R07.9 Chest pain, unspecified; E03.9 Hypothyroidism, unspecified; E11.9 Type 2 diabetes mellitus without complications; E55.9 Vitamin D deficiency, unspecified
CPT/HCPCS: 36415; 80053; 80061; 82306; 82570; 84443; 85025; 93005

== ENCOUNTER → 2024-02-10 11:02 | Outpatient (BNV) | payer OTHER, SELFPAY | PROVIDERS: PCP Internal Medicine; Visit Provider Internal Medicine Cardiovascular Disease | DX: R07.9 Chest pain, unspecified (principal) | CPT/HCPCS: 93010 ==

== ENCOUNTER 2024-05-23 10:38 | Outpatient (AMB) | payer OTHER, SELFPAY ==
--- NOTE | 2024-05-23 10:48 | A.OFFVIS_ITS ---
Intake Visit Reasons: MRI Follow up Landscape Management Technician Required: Yes Landscape Management Technician Language: Computer Language Coder Name: Julia [id number] Information Interpreted: non-clinical & clinical Carbon Coater Machine Operator: Carbon Coater Machine Operator Present Allergies morphine [MORPHINE] Allergy (Intermediate, Verified 05/23/24 10:49) TACHYCARDIA, palpitations Penicillins Allergy (Intermediate, Verified 05/23/24 10:49) RASH Sulfa (Sulfonamide Antibiotics) Allergy (Intermediate, Verified 05/23/24 10:49) rash Is last menstrual period known: Yes HPI Comments Details: Patient is here today for follow up on her pelvic MRI, history of ovarian cyst. She denies any pelvic pain. [facility] Medical History History of uterine cancer Tubular adenoma Physical exam GERD (gastroesophageal reflux disease) Mild recurrent major depression High cholesterol Lower back pain Anxiety Hypothyroidism Dyslipidemia Diabetes mellitus Surgical History History of toe surgery H/O: Lipoma Status post breast reduction History of laparoscopic cholecystectomy History of total abdominal hysterectomy Family History Father Hypertension Diabetes Mother Hypertension Diabetes Stroke Cancer Paternal Grandmother Cancer Family/Other Mental health disorder Social History Housing: Apartment Alcohol intake: current Alcohol intake frequency: holidays/special occasions only Alcohol type: hard liquor Patient Tobacco Use Status: Never used Tobacco e-Cigarette/Vaping Use: Never Used Second Hand Smoke Exposure: No service: No Current occupational status: disabled Cognitive needs: No Hearing needs: No Vision needs: Yes Review of Systems Const All systems reviewed & are unremarkable except as noted in HPI and below Endo Reports no additional complaints Physical Exam Const General: cooperative, healthy appearing and no acute distress Psych Appearance: well kempt Attitude: cooperative Thought process: Normal thought process present Results Reviewed Results Reviewed: [address] [address] Magnetic Resonance Report Signed Patient: Mariela Salguero MR#: [id number] : 1965 Acct:[id number] Age/Sex: 58 / F ADM Date: 09/15/23 Loc: HO.MRI Attending Dr: Anali Alvarenga CNM Ordering Physician: Anali Alvarenga CNM Date of Service: 09/15/23 Procedure(s): MR pelvis wo/w con Accession Number(s): [id number] cc: Anali Alvarenga CNM; Suzie To MD~ EXAMINATION: MR PELVIS WITHOUT AND WITH CONTRAST CLINICAL INFORMATION: Postmenopausal bleeding. History of surgical resection of uterine tumor, fibroid, later found to have cancer cells. COMPARISON: Pelvic ultrasound from 12/29/2017 and 06/23/2023. TECHNIQUE: MR imaging of the pelvis is performed using standard sequences on a high-field magnet without and with intravenous administration of 6 mL Gadavist. FINDINGS: UTERUS AND CERVIX: Status post hysterectomy. The vagina has a normal appearance. No soft tissue nodularity or mass at the vaginal cuff. ADNEXA: The atrophied right ovary measures approximately 2 x 1.4 x 1.5 cm. The left ovary is 2.2 x 1.9 x 2.9 cm. A 1.8 x 1.3 x 2.7 cm simple cyst of the posterior left ovary is present. It was 1.8 x 1.5 x 2 cm on 08/05/2017. Since this remains small for many years, it is consistent with a benign cyst. No follow-up imaging recommended/required, if asymptomatic. FREE FLUID trace amount of free fluid is present in the posterior cul-de-sac. No loculated fluid collection. LYMPHOVASCULAR: Normal. No pathologic sized iliac, obturator or inguinal lymph nodes. URINARY BLADDER: Urinary bladder and urethra are normal. GASTROINTESTINAL: No dilated bowel loops. The sigmoid colon and rectum are unremarkable. ABDOMINAL WALL: Prior section with linear hypointense scar at the lower abdominal wall. No abdominal wall hernia. MUSCULOSKELETAL: No acute or suspicious osseous abnormality. No soft tissue mass. MR/MR pelvis wo/w con IMPRESSION: * Status post hysterectomy. * Simple cyst of the posterior left ovary remains similar in size compared to the CT exam from 08/05/2017. No follow-up imaging recommended. * Trace amount of simple-appearing free fluid is present in the pelvic cul-de-sac. Dictated By: Mansoor Michael MD Signed By: <Electronically signed by Mansoor Michael MD in OV> 10/11/23 0838 DD/ 1146 TD/TT: Nutrition [employer] Ambassador: PD Assessment & Plan Assessment & Plan (1) Ovarian cyst: Code(s): N83.209 - Unspecified ovarian cyst, unspecified side Category: Medical Qualifiers: Laterality: left Qualified Code(s): N83.202 - Unspecified ovarian cyst, left side (2) Encounter to discuss test results: Code(s): Z71.2 - Person consulting for explanation of examination or test findings Plan: as noted below. Plan Discussed: MRI findings- left ovarian cyst, scan was completed 08/2023 there was a delay in care in her returning for follow up. She became weepy and was anxious today, asking when she would have surgery. freelance interpreter/translator repeated the information, it did not convey any need for surgery, cyst- benign in appearance, though due to the lapse from the last scan, I suggest she repeat it for reassurance. Reviewed increase in the size of the cyst from US, variations in measurements-plan recheck. Advised of make a follow up appointment to discuss 2 week after imaging is completed. The patient expressed understanding and agreement with the plan of care. All of her questions and concerns were addressed to the best of my a bility. This note is constructed using voice recognition software. While every effort has been made to ensure accuracy, billing and accounting staff assistant errors may have been included. Orders: Orders US pelvic and transvaginal Today N83.209 - Unspecified ovarian cyst, unspecified side Coding Level of Care Code Est Pt Level 3 (95451) Diagnoses Cyst of left ovary N83.202 Laterality: left Encounter to discuss test results Z71.2
--- OUTSIDE RECORDS SUMMARY | 2024-05-23 11:32 | XMS_ITS | Clinical Summary ---
Author Organization [facility] Address [address] [place] [address] Phone Care Team Providers Care Cable Coverer Name Role Phone Mariya Gutierrez MD Primary Care Provider [phone] Allergies Active Allergy Reactions Criticality Noted Date Comments Morphine 05/20/2024 Penicillins 05/20/2024 Medications Medication Sig Dispensed Refills Start Date End Date Status ondansetron ODT (ZOFRAN-ODT) 4 mg disintegrating tablet Let 1 tablet dissolve under the tongue three times daily as needed for nausea or vomiting. 10 tablet 05/20/2024 05/27/2024 Active famotidine (PEPCID) 20 mg tablet Take 1 tablet (20 mg total) by mouth 2 (two) times a day for 15 days. 30 tablet 05/20/2024 06/04/2024 Active Encounters Date Type Department Care Team Description 05/20/2024 4:37 PM EST - 05/20/2024 8:30 PM EST Emergency [facility] [address] [place] [address] Left upper quadrant abdominal pain (Primary Dx); Acute bilateral low back pain without sciatica Discharge Disposition: Home or Self Care from Last 3 Months Social History Tobacco Use Types Packs/Day Years Used Date Smoking Tobacco: Never Assessed Sex and Gender Information Value Date Recorded Sex Assigned at Female 05/20/2024 4:55 PM EST Gender Identity Female 05/20/2024 4:55 PM EST Sexual Orientation Not on file Job Start Date Occupation Industry Not on file Not on file Not on file Last Filed Vital Signs Vital Sign Reading Time Taken Comments Blood Pressure 124/65 05/20/2024 5:54 PM EST Pulse 64 05/20/2024 5:54 PM EST Temperature 37.2 ??C (98.9 ??F) 05/20/2024 5:54 PM ES T Respiratory Rate 18 05/20/2024 5:54 PM EST Oxygen Saturation 98% 05/20/2024 5:54 PM EST Inhaled Oxygen Concentration - - Weight 61.2 kg (135 lb) 05/20/2024 2:16 PM EST Height 157.5 cm (5' 2 ) 05/20/2024 2:16 PM EST Body Mass Index 24.69 05/20/2024 2:16 PM EST Plan of Treatment Health Maintenance Due Date Last Done Comments Breast Cancer Screening 1965 Cervical Cancer Screening: Pap Smear 02/10/1985 Zoster Vaccines (1 of 2) 02/10/2014 Colorectal Cancer Screening: Colonoscopy 05/18/2023 Depression Screening 05/18/2023 HIV Screening 05/18/2023 Hepatitis C Screening 05/18/2023 Social Influencers of Health Screening 05/18/2023 DTaP,Tdap,and Td Vaccines (5 - Td or Tdap) 12/10/2023 12/09/2013, 12/09/2013, 01/13/2010, Additional history exists COVID-19 Vaccine ( - season) 2023 09/24/2020, 09/03/2020 RSV Immunization Patients 60+ Years Old (1 - 1-dose 75+ series) 02/10/2039 Influenza Vaccine Completed 12/30/2023, , 01/28/2021, Additional history exists HIB Vaccines Aged Out No longer eligi ble based on patient's age to complete this topic HPV Vaccines Aged Out No longer eligi ble based on patient's age to complete this topic Hepatitis A Vaccines Aged Out No long er eligible based on patient's age to complete this topic Hepatitis B Vaccines Aged Out No long er eligible based on patient's age to complete this topic IPV Vaccines Aged Out No longer eligi ble based on patient's age to complete this topic MMR Vaccines Aged Out No longer eligi ble based on patient's age to complete this topic Meningococcal ACWY Vaccine Aged Out N o longer eligible based on patient's age to complete this topic Pneumococcal Vaccine: Pediatrics (0 to 5 Years) and At-Risk Patients (6 to 64 Years) Aged Out No longer eligible based on patient's age to complete this topic RSV Immunization Patients Under 20 months Aged Out No longer eligible based on patient's age to complete this topic Varicella Vaccines Aged Out No longer eligible based on patient's age to complete this topic Procedures Procedure Name Priority Date/Time Associated Diagnosis Comments CT ABDOMEN PELVIS W CONTRAST STAT 05/20/2024 6:59 PM EST BENJAMIN URINE CULTURE TUBE STAT 05/20/2024 4:06 PM EST URINALYSIS WITH REFLEX MICROSCOPIC AND CULTURE STAT 05/20/2024 4:06 PM EST URINALYSIS WITH REFLEX MICROSCOPIC AND CULTURE STAT 05/20/2024 4:06 PM EST CULTURE URINE STAT 05/20/2024 4:06 PM EST CBC WITH AUTO DIFFERENTIAL STAT 05/20/2024 4:03 PM EST COMPREHENSIVE METABOLIC PANEL STAT 05/20/2024 4:03 PM EST CBC AND DIFFERENTIAL STAT 05/20/2024 4:03 PM EST from Last 3 Months Results * CT Abdomen Pelvis w Contrast (05/20/2024 6:59 PM EST) Anatomical Region Laterality Modality Body Computed Tomogra phy 05/20/2024 7:13 PM EST Impressions 05/20/2024 7:13 PM EST No acute findings. This document has been electronically signed by: Mario Lewis MD on 05/20/2024 19:13:38 Narrative 05/20/2024 7:[address] abdomen and pelvis with contrast Comparison: None Findings: No consolidation or effusion. Cholecystectomy clips are present. Multiple right hepatic lobe cysts are present. Solid organs are within normal limits. No bowel obstruction, pneumoperitoneum, or pneumatosis. Pelvic contents unremarkable. Normal appendix. No acute fracture. Procedure Note Mario Lewis MD - 05/20/2024 CT abdomen and pelvis with contrast Comparison: None Findings: No consolidation or effusion. Cholecystectomy clips are present. Multiple right hepatic lobe cysts are present. Solid organs are within normal limits. No bowel obstruction, pneumoperitoneum, or pneumatosis. Pelvic contents unremarkable. Normal appendix. No acute fracture. IMPRESSION: No acute findings. This document has been electronically signed by: Mario Lewis MD on 05/20/2024 19:13:38 Ghazala Benitez PA IMG CT PROCEDU RES * (ABNORMAL) Urinalysis with reflex microscopic and culture (05/20/2024 4:06 PM EST) Specific [place] Urine 1.009 1.003 - 1.030 LAB URINALYSIS - AUTOMATED METHOD 05/20/2024 4:35 PM [facility] pH, Urine 6.0 5.0 - 8.0 pH LAB URINALYSIS - AUTOMATED METHOD 05/20/2024 4:35 PM [facility] Leukocytes, Urine Trace(A) Negative LAB URINALYSIS - AUTOMATED METHOD 05/20/2024 4:35 PM [facility] Nitrite, Urine Negative Negative LAB URINALYSIS - AUTOMATED METHOD 05/20/2024 4:35 PM [facility] Protein, Urine Negative <=Trace mg/dL LAB URINALYSIS - AUTOMATED METHOD 05/20/2024 4:35 PM [facility] Glucose, Urine Negative Negative mg/dL LAB URINALYSIS - AUTOMATED METHOD 05/20/2024 4:35 PM [facility] Ketones, Urine Negative Negative mg/dL LAB URINALYSIS - AUTOMATED METHOD 05/20/2024 4:35 PM [facility] Urobilinogen, Urine 0.2 0.2 - 1.0 mg/dL LAB URINALYSIS - AUTOMATED METHOD 05/20/2024 4:35 PM [facility] Bilirubin, Urine Negative Negative LAB URINALYSIS - AUTOMATED METHOD 05/20/2024 4:35 PM [facility] Blood, Urine Negative Negative LAB URINALYSIS - AUTOMATED METHOD 05/20/2024 4:35 PM [facility] RBC, Urine 2.0 0 - 4 /HPF LAB URINALYSIS - AUTOMATED METHOD 05/20/2024 4:35 PM [facility] WBC, Urine 1.6 0 - 4 /HPF LAB URINALYSIS - AUTOMATED METHOD 05/20/2024 4:35 PM [facility] Squamous Epithelial, Urine 19 0 - 60 /LPF LAB URINALYSIS - AUTOMATED METHOD 05/20/2024 4:35 PM [facility] Bacteria, Urine Negative Negative /HPF LAB URINALYSIS - AUTOMATED METHOD 05/20/2024 4:35 PM [facility] Hyaline Casts, Urine 0.0 0 - 3 /LPF LAB URINALYSIS - AUTOMATED METHOD 05/20/2024 4:35 PM [facility] Urine Urine specimen obtained by clean catch procedure / Unknown Non-blood Collection / Unknown 05/20/2024 4:06 PM EST 05/20/2024 4:25 PM EST Ishan Wolfe MD LAB URINE ORDERABLES [facility] [address] [place] [address], [place] [phone] * Benjamin urine culture tube (05/20/2024 4:06 PM EST) Extra Tube Hold for add-ons. 05/20/2024 6:01 PM EST [facility] Comment:Auto resulted. Urine Urine specimen obtained by clean catch procedure / Unknown Non-blood Collection / Unknown 05/20/2024 4:06 PM EST 05/20/2024 4:25 PM EST Ishan Wolfe MD LAB URINE ORDERABLES [facility] [address] [place] [address], [place] [phone] * Culture urine (05/20/2024 4:06 PM EST) Pathologist [facility] Culture, Urine No growth 05/21/2024 7:57 AM [facility] Urine Urine specimen obtained by clean catch procedure / Unknown Non-blood Collection / Unknown 05/20/2024 4:06 PM EST 05/20/2024 4:35 PM EST Ishan Wolfe MD LAB MICROBIOLOGY - G ENERAL ORDERABLES [facility] [address] [place] [address], * (ABNORMAL) CBC auto differential (05/20/2024 4:03 PM EST) Pathologist [facility] WBC 5.6 4.8 - 10.8 K/mcL LAB HEMETOLOGY METHOD 05/20/2024 4:22 PM [facility] RBC 4.30 3.80 - 4.80 M/mcL LAB HEMETOLOGY METHOD 05/20/2024 4:22 PM [facility] Hemoglobin 12.6 11.5 - 16.0 g/dL LAB HEMETOLOGY METHOD 05/20/2024 4:22 PM [facility] Hematocrit 39.6 35.0 - 47.0 % LAB HEMETOLOGY METHOD 05/20/2024 4:22 PM [facility] MCV 93.0 79.0 - 98.0 FL LAB HEMETOLOGY METHOD 05/20/2024 4:22 PM [facility] MCH 29.6 27.0 - 32.0 pcg LAB HEMETOLOGY METHOD 05/20/2024 4:22 PM [facility] MCHC 31.8(L) 32.0 - 37.0 g/dL LAB HEMETOLOGY METHOD 05/20/2024 4:22 PM [facility] RDW 12.5 11.0 - 15.0 % LAB HEMETOLOGY METHOD 05/20/2024 4:22 PM [facility] Platelets 239 130 - 400 K/mcL LAB HEMETOLOGY METHOD 05/20/2024 4:22 PM [facility] MPV 10.4 7.0 - 11.0 FL LAB HEMETOLOGY METHOD 05/20/2024 4:22 PM [facility] NRBC 0.0 <1.0 % LAB HEMETOLOGY METHOD 05/20/2024 4:22 PM [facility] NRBC Absolute 0.00 <0.10 K/mcL LAB HEMETOLOGY METHOD 05/20/2024 4:22 PM [facility] Neutrophils Relative 52.7 % LAB HEMETOLOGY METHOD 05/20/2024 4:22 PM [facility] Lymphocytes Relative 35.7 % LAB HEMETOLOGY METHOD 05/20/2024 4:22 PM [facility] Monocytes Relative 8.6 % LAB HEMETOLOGY METHOD 05/20/2024 4:22 PM [facility] Eosinophils Relative 2.3 % LAB HEMETOLOGY METHOD 05/20/2024 4:22 PM [facility] Basophils Relative 0.5 % LAB HEMETOLOGY METHOD 05/20/2024 4:22 PM [facility] Immature Granulocytes Relative 0.2 % LAB HEMETOLOGY METHOD 05/20/2024 4:22 PM [facility] Neutrophils Absolute 2.92 1.50 - 7.00 K/mcL LAB HEMETOLOGY METHOD 05/20/2024 4:22 PM [facility] Lymphocytes Absolute 1.98 1.00 - 5.00 K/mcL LAB HEMETOLOGY METHOD 05/20/2024 4:22 PM [facility] Monocytes Absolute 0.48 0.20 - 1.00 K/mcL LAB HEMETOLOGY METHOD 05/20/2024 4:22 PM EST [facility] Eosinophils Absolute 0.13 0.00 - 0.50 K/mcL LAB HEMETOLOGY METHOD 05/20/2024 4:22 PM EST [facility] Basophils Absolute 0.03 0.00 - 0.20 K/mcL LAB HEMETOLOGY METHOD 05/20/2024 4:22 PM [facility] Immature Granulocytes Absolute 0.01 0.00 - 0.03 K/mcL LAB HEMETOLOGY METHOD 05/20/2024 4:22 PM [facility] Blood Venous blood specimen / Unknown Venipuncture / Unknown 05/20/2024 4:03 PM EST 05/20/2024 4:11 PM EST Ishan Wolfe MD LAB BLOOD ORDERABLES [facility] [address] [place] [address], * (ABNORMAL) Comprehensive metabolic panel (05/20/2024 4:03 PM EST) Sodium 136 133 - 145 mmol/L LAB CHEMISTRY METHOD 05/20/2024 4:44 PM [facility] Potassium 4.0 3.5 - 5.5 mmol/L LAB CHEMISTRY METHOD 05/20/2024 4:44 PM [facility] Chloride 105 96 - 110 mmol/L LAB CHEMISTRY METHOD 05/20/2024 4:44 PM [facility] CO2 26 21 - 32 mmol/L LAB CHEMISTRY METHOD 05/20/2024 4:44 PM [facility] Anion Gap 5 3 - 11 LAB CHEMISTRY METHOD 05/20/2024 4:44 PM [facility] Glucose 102(H) 70 - 100 mg/dL LAB CHEMISTRY METHOD 05/20/2024 4:44 PM [facility] BUN 15 5 - 25 mg/dL LAB CHEMISTRY METHOD 05/20/2024 4:44 PM [facility] Creatinine 0.88 0.50 - 1.10 mg/dL LAB CHEMISTRY METHOD 05/20/2024 4:44 PM [facility] eGFR 75 >=60 mL/min/1. 73m2 LAB CHEMISTRY METHOD 05/20/2024 4:44 PM [facility] Comment:Calculation based on the??Chronic Kidney Disease Epidemiology Collaboration (CKD-EPI) equation refit??without adjustment for race. BUN/Creatinine Ratio 17.0 LAB CHEMISTRY METHOD 05/20/2024 4:44 PM [facility] Calcium 8.9 8.5 - 10.5 mg/dL LAB CHEMISTRY METHOD 05/20/2024 4:44 PM [facility] AST (SGOT) 17 10 - 42 unit/L LAB CHEMISTRY METHOD 05/20/2024 4:44 PM [facility] ALT (SGPT) 24 10 - 60 unit/L LAB CHEMISTRY METHOD 05/20/2024 4:44 PM [facility] Alkaline Phosphatase 77 42 - 121 unit/L LAB CHEMISTRY METHOD 05/20/2024 4:44 PM [facility] Total Protein 7.1 6.0 - 8.0 g/dL LAB CHEMISTRY METHOD 05/20/2024 4:44 PM [facility] Albumin 3.5 3.2 - 5.0 g/dL LAB CHEMISTRY METHOD 05/20/2024 4:44 PM [facility] Total Bilirubin 0.3 0.0 - 1.4 mg/dL LAB CHEMISTRY METHOD 05/20/2024 4:44 PM [facility] Blood Venous blood specimen / Unknown Venipuncture / Unknown 05/20/2024 4:03 PM EST 05/20/2024 4:11 PM EST Ishan Wolfe MD LAB BLOOD ORDERABLES [facility] [address] [place] [address], from Last 3 Months Care Teams Cable Coverer Relationship Specialty Start Date End Date Mariya Gutierrez MD [address] [facility] Primary Care ([id number]) SUNG Liu PCP - General 04/22/11
--- OUTSIDE RECORDS SUMMARY | 2024-05-23 11:32 | XMS_ITS | Encounter Summary ---
Author Organization [employer] Address [address] [place] [address] Care Team Providers Care Milk Tester Name Role Phone Mariya Gutierrez MD Primary Care Provider + [phone] Reason for Visit * Reason Comments Flank Pain Encounter Details Date Type Department Care Team (Late st Contact Info) Description 05/20/2024 4:37 PM EST - 05/20/2024 8:30 PM EST Emergency [facility] Emergency [address] [place] [address] Left upper quadrant abdominal pain (Primary Dx); Acute bilateral low back pain without sciatica Discharge Disposition: Home or Self Care Social History Tobacco Use Types Packs/Day Years Used Date Smoking Tobacco: Never Assessed Sex and Gender Information Value Date Recorded Sex Assigned at Female 05/20/2024 4:55 PM EST Gender Identity Female 05/20/2024 4:55 PM EST Sexual Orientation Not on file Job Start Date Occupation Industry Not on file Not on file Not on file documented as of this encounter Last Filed Vital Signs Vital Sign Reading [...] Mass Index 24.69 05/20/2024 2:16 PM EST documented in this encounter Functional Status Functional Status Response Date of Assess ment Are you deaf or do you have serious difficulty h earing? No 05/20/2024 Are you blind or do you have serious difficulty seeing, even when wearing glasses? No 05/20/2024 Do you have serious difficul ty walking or climbing stairs? No 05/20/2024 Do you have serious difficulty dressing or bathi ng? No 05/20/2024 Because of a physical, menta l, or emotional condition, do you have serious difficulty doing errands alone such as visiting the doctor? No 05/20/2024 Cognitive Status Response Date of Assessm ent Because of a physical, menta l, or emotional condition, do you have serious difficulty concentrating, remembering, or making decisions? (5 years old or older) No 05/20/2024 documented as of this encounter Medications at Time of Discharge Medication Sig Dispensed Refills Start Date End Date famotidine (PEPCID) 20 mg tablet Take 1 tablet (20 mg total) by mouth 2 (two) times a day for 15 days. 30 tablet 05/20/2024 06/04/2024 ondansetron ODT (ZOFRAN-ODT) 4 mg disintegrating tablet Let 1 tablet dissolve under the tongue three times daily as needed for nausea or vomiting. 10 tablet 05/20/2024 05/27/2024 documented as of this encounter Ordered Prescriptions Prescription Sig Dispensed Refills Start Date End Da te famotidine (PEPCID) 20 mg tablet Take 1 tablet (20 mg total) by mouth 2 (two) times a day for 15 days. 30 tablet 05/20/2024 06/04/2024 ondansetron ODT (ZOFRAN-ODT) 4 mg disintegrating tablet Let 1 tablet dissolve under the tongue three times daily as needed for nausea or vomiting. 10 tablet 05/20/2024 05/27/2024 documented in this encounter Discharge Disposition Disposition Code Departure Means Destination Comment s Home or Self [facility] Pt stated understanding of discharge instructions via in person interpretor. Pt will take medications as prescribed and return if worsening symptoms. Pt ambulated out of ED with steady gait observed, documented in this encounter Progress Notes * Joseline Thompson RN - 05/20/2024 2:14 PM EST Patient reports bilateral flank pain and dysuria for a few days * BHARATH Pringle - 05/20/2024 2:10 PM EST Emergency Medicine Note Patient Name: Mariela Salguero Initial Evaluation: 05/20/2024 : 1965 Patient's PCP: Mariya Gutierrez MD Emergency Physician: BHARATH Pringle History of Present Illness Chief Complaint: Chief Complaint Patient presents with Flank Pain HPI: 59-year-old female here today complaining of lateral flank pain and left upper abdominal pain for the past few days. Gradual onset of symptoms. Denies any fevers or any chills. Patient has nausea denies any vomiting or diarrhea. Denies any hematuria ROS: I have performed a ROS with the pertinent positives and negatives documented in the history ofpresent illness. Previous History No past medical history on file. No past surgical history on file. No family history on file. is allergic to morphine and penicillins. No current facility-administered medications on file prior to encounter. No current outpatient medications on file prior to encounter. Physical Exam ED Triage Vitals [05/20/24 1416] Temp Heart Rate Resp BP 37.2 ??C (99 ??F) 80 18 132/58 SpO2 Temp Source Heart Rate Source Patient Position 98 % Oral -- -- BP Location FiO2 (%) -- -- Physical Exam Vitals and nursing note reviewed. Constitutional: Appearance: Normal appearance. HENT: Nose: Nose normal. Cardiovascular: Rate and Rhythm: Normal rate and regular rhythm. Pulmonary: Effort: Pulmonary effort is normal. Breath sounds: Normal breath sounds. Musculoskeletal: Cervical back: Normal range of motion and neck supple. Skin: General: Skin is warm. Capillary Refill: Capillary refill takes less than 2 seconds. Neurological: General: No focal deficit present. Mental Status: She is alert and oriented to person, place, and time. Psychiatric: Mood and Affect: Mood normal. Behavior: Behavior normal. Results Labs Reviewed COMPREHENSIVE METABOLIC PANEL - Abnormal Result Value Sodium 136 Potassium 4.0 Chloride 105 CO2 26 Anion Gap 5 Glucose 102 (*) BUN 15 Creatinine 0.88 eGFR 75 BUN/Creatinine Ratio 17.0 Calcium 8.9 AST (SGOT) 17 ALT (SGPT) 24 Alkaline Phosphatase 77 Total Protein 7.1 Albumin 3.5 Total Bilirubin 0.3 CBC WITH AUTO DIFFERENTIAL - Abnormal WBC 5.6 RBC 4.30 Hemoglobin 12.6 Hematocrit 39.6 MCV 93.0 MCH 29.6 MCHC 31.8 (*) RDW 12.5 Platelets 239 MPV 10.4 NRBC 0.0 NRBC Absolute 0.00 Neutrophils Relative 52.7 Lymphocytes Relative 35.7 Monocytes Relative 8.6 Eosinophils Relative 2.3 Basophils Relative 0.5 Immature Granulocytes Relative 0.2 Neutrophils Absolute 2.92 Lymphocytes Absolute 1.98 Monocytes Absolute 0.48 Eosinophils Absolute 0.13 Basophils Absolute 0.03 Immature Granulocytes Absolute 0.01 URINALYSIS WITH REFLEX MICROSCOPIC AND CULTURE - Abnormal Specific [place] Urine 1.009 pH, Urine 6.0 Leukocytes, Urine Trace (*) Nitrite, Urine Negative Protein, Urine Negative Glucose, Urine Negative Ketones, Urine Negative Urobilinogen, Urine 0.2 Bilirubin, Urine Negative Blood, Urine Negative RBC, Urine 2.0 WBC, Urine 1.6 Squamous Epithelial, Urine 19 Bacteria, Urine Negative Hyaline Casts, Urine 0.0 CULTURE URINE CBC AND DIFFERENTIAL Narrative: The following orders were created for panel order CBC and differential. Procedure Abnormality Status --------- ------ CBC auto differential[[id number]] Abnormal Final result Please view results for these tests on the individual orders. URINALYSIS WITH REFLEX MICROSCOPIC AND CULTURE Narrative: The following orders were created for panel order Urinalysis with reflex microscopic and culture. Procedure Abnormality Status --------- ------ Urinalysis with reflex m...[[id number]] Abnormal Final result Benjamin urine culture tube[[id number]] Final result Please view results for these tests on the individual orders. Abnormal Labs Reviewed COMPREHENSIVE METABOLIC PANEL - Abnormal; Notable for the following components: Result Value Glucose 102 (*) All other components within normal limits CBC WITH AUTO DIFFERENTIAL - Abnormal; Notable for the following components: MCHC 31.8 (*) All other components within normal limits URINALYSIS WITH REFLEX MICROSCOPIC AND CULTURE - Abnormal; Notable for the following components: Leukocytes, Urine Trace (*) All other components within normal limits CT Abdomen Pelvis w Contrast Final Result No acute findings. This document has been electronically signed by: Mario Lewis MD on 05/20/2024 19:13:38 I have discussed the incidental/abnormal imaging and/or lab abnormalities with the patient and haveinstructed them the need for further evaluation and workup with their primary care doctor. I have provided the patient with a paper copy of the abnormality. The laboratory results, imaging results and other diagnostic exam results were reviewed in the EMR. EKG Interpretation Critical Care Time None ? Differential Diagnosis Pyelonephritis UTI Renal stone Viral illness Gastroenteritis Medical Decision Making Well-appearing nontoxic non-lethargic. Vital signs are stable. Interviewed with an freelance makeup artist. Labs and CT are unremarkable. Patient discharged home follow-up with her primary care doctor toleratingp.o. Medications sodium chloride 0.9 % bolus 1,000 mL (0 mL intravenous Stopped 05/20/242002) ondansetron (PF) (ZOFRAN) injection 4 mg (4 mg intravenous Given 05/20/241808) HYDROmorphone (PF) injection 0.5 mg (0.5 mg intravenous Given 05/20/241808) sodium chloride 0.9 % flush 10 mL (10 mL intravenous Given 05/20/241854) iopamidoL (ISOVUE-370) 370 mg iodine /mL (76 %) injection 90 mL (90 mL intravenous Given 05/20/241855) Clinical Impressions as of 05/20/242009 Left upper quadrant abdominal pain Acute bilateral low back pain without sciatica Amount and/or Complexity of Data Reviewed External Data Reviewed: Encounters reviewed in Chart Review. Details: Labs: ordered. Decision-making details documented in ED Course. Radiology: ordered. Decision-making details documented in ED Course. ECG/medicine tests: ordered. Decision-making details documented in ED Course. Procedures Procedures Diagnosis 1. Left upper quadrant abdominal pain 2. Acute bilateral low back pain without sciatica Disposition Discharge ED Prescriptions Medication Sig Dispense Start Date End Date Auth. Provider ondansetron ODT (ZOFRAN-ODT) 4 mg disintegrating tablet Let 1 tablet dissolve under the tongue three times daily as needed for nausea or vomiting. 10 tablet 05/20/2024 05/27/2024 BHARATH Pringle famotidine (PEPCID) 20 mg tablet Take 1 tablet (20 mg total) by mouth 2 (two) times a day for 15 days. 30 tablet 05/20/2024 06/04/2024 BHARATH Pringle Physician Attestation BHARATH Pringle 05/20/241650 BHARATH Pringle 05/20/241954 BHARATH Pringle 05/20/242001 BHARATH Pringle 05/20/242010 documented in this encounter Plan of Treatment Not on file documented as of this encounter Procedures Procedure Name Priority Date/Time Associated Diagnosis Comments CT ABDOMEN PELVIS W CONTRAST STAT 05/20/2024 6:59 PM EST URINALYSIS WITH REFLEX MICROSCOPIC AND CULTURE STAT 05/20/2024 4:06 PM EST BENJAMIN URINE CULTURE TUBE STAT 05/20/2024 4:06 PM EST URINALYSIS WITH REFLEX MICROSCOPIC AND CULTURE STAT 05/20/2024 4:06 PM EST CULTURE URINE STAT 05/20/2024 4:06 PM EST CBC WITH AUTO DIFFERENTIAL STAT 05/20/2024 4:03 PM EST CBC AND DIFFERENTIAL STAT 05/20/2024 4:03 PM EST COMPREHENSIVE METABOLIC PANEL STAT 05/20/2024 4:03 PM EST documented in this encounter Results * CT Abdomen Pelvis w Contrast [...] Mario Lewis MD on 05/20/2024 19:13:[address] PROCEDU RES * Culture urine (05/20/2024 4:06 PM EST) Pathologist [facility] Culture, Urine No growth 05/21/2024 7:57 AM EST [facility] Urine Urine specimen obtained by clean catch procedure / Unknown Non-blood Collection / Unknown 05/20/2024 4:06 PM EST 05/20/2024 4:35 PM EST Ishan Wolfe MD LAB MICROBIOLOGY - G ENERAL ORDERABLES [facility] [address] [place] [address], * Benjamin urine culture tube (05/20/2024 4:06 PM EST) Pathologist [facility] Extra Tube Hold for add-ons. 05/20/2024 6:01 PM EST [facility] Comment:Auto resulted. Urine Urine specimen obtained by clean catch procedure / Unknown Non-blood Collection / Unknown 05/20/2024 4:06 PM EST 05/20/2024 4:25 PM EST Ishan Wolfe MD LAB URINE ORDERABLES [facility] [address] [place] [address], [place] [phone] * (ABNORMAL) Urinalysis with reflex microscopic and culture (05/20/2024 4:06 PM EST) Specific [place] Urine 1.009 1.003 - 1.030 LAB URINALYSIS - AUTOMATED METHOD 05/20/2024 4:35 PM [facility] pH, Urine 6.0 5.0 - 8.0 pH LAB URINALYSIS - AUTOMATED METHOD 05/20/2024 4:35 PM [facility] Leukocytes, Urine Trace(A) Negative LAB URINALYSIS - AUTOMATED METHOD 05/20/2024 4:35 PM [facility] Nitrite, Urine Negative Negative LAB URINALYSIS - AUTOMATED METHOD 05/20/2024 4:35 PM [facility] Protein, Urine Negative <=Trace mg/dL LAB URINALYSIS - AUTOMATED METHOD 05/20/2024 4:35 PM [facility] Glucose, Urine Negative Negative mg/dL LAB URINALYSIS - AUTOMATED METHOD 05/20/2024 4:35 PM [facility] Ketones, Urine Negative Negative mg/dL LAB URINALYSIS - AUTOMATED METHOD 05/20/2024 4:35 PM [facility] Urobilinogen, Urine 0.2 0.2 - 1.0 mg/dL LAB URINALYSIS - AUTOMATED METHOD 05/20/2024 4:35 PM [facility] Bilirubin, Urine Negative Negative LAB URINALYSIS - AUTOMATED METHOD 05/20/2024 4:35 PM [facility] Blood, Urine Negative Negative LAB URINALYSIS - AUTOMATED METHOD 05/20/2024 4:35 PM [facility] RBC, Urine 2.0 0 - 4 /HPF LAB URINALYSIS - AUTOMATED METHOD 05/20/2024 4:35 PM [facility] WBC, Urine 1.6 0 - 4 /HPF LAB URINALYSIS - AUTOMATED METHOD 05/20/2024 4:35 PM [facility] Squamous Epithelial, Urine 19 0 - 60 /LPF LAB URINALYSIS - AUTOMATED METHOD 05/20/2024 4:35 PM [facility] Bacteria, Urine Negative Negative /HPF LAB URINALYSIS - AUTOMATED METHOD 05/20/2024 4:35 PM [facility] Hyaline Casts, Urine 0.0 0 - 3 /LPF LAB URINALYSIS - AUTOMATED METHOD 05/20/2024 4:35 PM [facility] Urine Urine specimen obtained by clean catch procedure / Unknown Non-blood Collection / Unknown 05/20/2024 4:06 PM EST 05/20/2024 4:25 PM EST Ishan Wolfe MD LAB URINE ORDERABLES [facility] [address] [place] [address], * (ABNORMAL) CBC auto differential (05/20/2024 4:03 PM EST) WBC 5.6 4.8 - 10.8 K/mcL LAB HEMETOLOGY METHOD 05/20/2024 4:22 PM [facility] RBC 4.30 3.80 - 4.80 M/mcL LAB HEMETOLOGY METHOD 05/20/2024 4:22 PM [facility] Hemoglobin 12.6 11.5 - 16.0 g/dL LAB HEMETOLOGY METHOD 05/20/2024 4:22 PM [facility] Hematocrit 39.6 35.0 - 47.0 % LAB HEMETOLOGY METHOD 05/20/2024 4:22 PM [facility] MCV 93.0 79.0 - 98.0 FL LAB HEMETOLOGY METHOD 05/20/2024 4:22 PM [facility] MCH 29.6 27.0 - 32.0 pcg LAB HEMETOLOGY METHOD 05/20/2024 4:22 PM [facility] MCHC 31.8(L) 32.0 - 37.0 g/dL LAB HEMETOLOGY METHOD 05/20/2024 4:22 PM [facility] RDW 12.5 11.0 - 15.0 % LAB HEMETOLOGY METHOD 05/20/2024 4:22 PM [facility] Platelets 239 130 - 400 K/mcL LAB HEMETOLOGY METHOD 05/20/2024 4:22 PM [facility] MPV 10.4 7.0 - 11.0 FL LAB HEMETOLOGY METHOD 05/20/2024 4:22 PM [facility] NRBC 0.0 <1.0 % LAB HEMETOLOGY METHOD 05/20/2024 4:22 PM [facility] NRBC Absolute 0.00 <0.10 K/mcL LAB HEMETOLOGY METHOD 05/20/2024 4:22 PM [facility] Neutrophils Relative 52.7 % LAB HEMETOLOGY METHOD 05/20/2024 4:22 PM [facility] Lymphocytes Relative 35.7 % LAB HEMETOLOGY METHOD 05/20/2024 4:22 PM [facility] Monocytes Relative 8.6 % LAB HEMETOLOGY METHOD 05/20/2024 4:22 PM [facility] Eosinophils Relative 2.3 % LAB HEMETOLOGY METHOD 05/20/2024 4:22 PM [facility] Basophils Relative 0.5 % LAB HEMETOLOGY METHOD 05/20/2024 4:22 PM [facility] Immature Granulocytes Relative 0.2 % LAB HEMETOLOGY METHOD 05/20/2024 4:22 PM EST [facility] Neutrophils Absolute 2.92 1.50 - 7.00 K/mcL LAB HEMETOLOGY METHOD 05/20/2024 4:22 PM [facility] Lymphocytes Absolute 1.98 1.00 - 5.00 K/mcL LAB HEMETOLOGY METHOD 05/20/2024 4:22 PM [facility] Monocytes Absolute 0.48 0.20 - 1.00 K/mcL LAB HEMETOLOGY METHOD 05/20/2024 4:22 PM [facility] Eosinophils Absolute 0.13 0.00 - 0.50 K/mcL LAB HEMETOLOGY METHOD 05/20/2024 4:22 PM [facility] Basophils Absolute 0.03 0.00 - 0.20 K/mcL LAB HEMETOLOGY METHOD 05/20/2024 4:22 PM [facility] Immature Granulocytes Absolute 0.01 0.00 - 0.03 K/mcL LAB HEMETOLOGY METHOD 05/20/2024 4:22 PM [facility] Blood Venous blood specimen / Unknown Venipuncture / Unknown 05/20/2024 4:03 PM EST 05/20/2024 4:11 PM EST Ishan Wolfe MD LAB BLOOD ORDERABLES [facility] [address] [place] [address], * (ABNORMAL) Comprehensive metabolic panel (05/20/2024 4:03 PM EST) Sodium 136 133 - 145 mmol/L LAB CHEMISTRY METHOD 05/20/2024 4:44 PM [facility] Potassium 4.0 3.5 - 5.5 mmol/L LAB CHEMISTRY METHOD 05/20/2024 4:44 PM [facility] Chloride 105 96 - 110 mmol/L LAB CHEMISTRY METHOD 05/20/2024 4:44 PM [facility] CO2 26 21 - 32 mmol/L LAB CHEMISTRY METHOD 05/20/2024 4:44 PM [facility] Anion Gap 5 3 - 11 LAB CHEMISTRY METHOD 05/20/2024 4:44 PM [facility] Glucose 102(H) 70 - 100 mg/dL LAB CHEMISTRY METHOD 05/20/2024 4:44 PM [facility] BUN 15 5 - 25 mg/dL LAB CHEMISTRY METHOD 05/20/2024 4:44 PM [facility] Creatinine 0.88 0.50 - 1.10 mg/dL LAB CHEMISTRY METHOD 05/20/2024 4:44 PM [facility] eGFR 75 >=60 mL/min/1. 73m2 LAB CHEMISTRY METHOD 05/20/2024 4:44 PM [facility] Comment:Calculation based on the??Chronic Kidney Disease Epidemiology Collaboration (CKD-EPI) equation refit??without adjustment for race. BUN/Creatinine Ratio 17.0 LAB CHEMISTRY METHOD 05/20/2024 4:44 PM [facility] Calcium 8.9 8.5 - 10.5 mg/dL LAB CHEMISTRY METHOD 05/20/2024 4:44 PM [facility] AST (SGOT) 17 10 - 42 unit/L LAB CHEMISTRY METHOD 05/20/2024 4:44 PM [facility] ALT (SGPT) 24 10 - 60 unit/L LAB CHEMISTRY METHOD 05/20/2024 4:44 PM [facility] Alkaline Phosphatase 77 42 - 121 unit/L LAB CHEMISTRY METHOD 05/20/2024 4:44 PM [facility] Total Protein 7.1 6.0 - 8.0 g/dL LAB CHEMISTRY METHOD 05/20/2024 4:44 PM [facility] Albumin 3.5 3.2 - 5.0 g/dL LAB CHEMISTRY METHOD 05/20/2024 4:44 PM EST [facility] Total Bilirubin 0.3 0.0 - 1.4 mg/dL LAB CHEMISTRY METHOD 05/20/2024 4:44 PM EST [facility] Blood Venous blood specimen / Unknown Venipuncture / Unknown 05/20/2024 4:03 PM EST 05/20/2024 4:11 PM EST Ishan Wolfe MD LAB BLOOD ORDERABLES [facility] [address] [place] [address], documented in this encounter Visit Diagnoses Diagnosis Left upper quadrant abdominal pain- Primary Acute bilateral low back pain without sciatica documented in this encounter Administered Medications Inactive Administered Medications - up to 3 most recent administrations Medication Order MAR Action Action Date Dose Rate Site HYDROmorphone (PF) injection 0.5 mg 0.5 mg, intravenous, Once, On 05/20/24 at 1721, For 1 dose Given 05/20/2024 6:09 PM EST 0.5 mg iopamidoL (ISOVUE-370) 370 mg iodine /mL (76 %) injection 90 mL 90 mL, intravenous, Once in imaging, Starting on 05/20/24 at 1853, For 1 dose Given 05/20/2024 6:56 PM EST 90 mL ondansetron (PF) (ZOFRAN) injection 4 mg 4 mg, intravenous, Once, On 05/20/24 at 1721, For 1 dose Given 05/20/2024 6:09 PM EST 4 mg sodium chloride 0.9 % bolus 1,000 mL 1,000 mL, intravenous, at 1,000 mL/hr, Administer over 1 Hours, Once, On 05/20/24 at 1721, For 1 dose New Bag 05/20/2024 6:09 PM EST 1,000 mL 1000 mL/hr sodium chloride 0.9 % flush 10 mL 10 mL, intravenous, Once, On 05/20/24 at 1854, For 1 dose Given 05/20/2024 6:55 PM EST 10 mL documented in this encounter Active and Recently Administered Medications Times are shown in EST. Scheduled Medication Order 05/18/2024 05/19/2024 05/20/2024 HYDROmorphone (PF) injection 0.5 mg (COMPLETED) 0.5 mg, intravenous, Once, On 05/20/24 at 1721, For 1 dose 1809 (Given - Provid er: Abena Marley RN) iopamidoL (ISOVUE-370) 370 mg iodine /mL (76 %) injection 90 mL (COMPLETED) 90 mL, intravenous, Once in imaging, Starting on 05/20/24 at 1853, For 1 dose 1856 (Given - Provid er: Nicole Ospina) ondansetron (PF) (ZOFRAN) injection 4 mg (COMPLETED) 4 mg, intravenous, Once, On 05/20/24 at 1721, For 1 dose 1809 (Given - Provid er: Abena Marley RN) sodium chloride 0.9 % bolus 1,000 mL (COMPLETED) 1,000 mL, intravenous, at 1,000 mL/hr, Administer over 1 Hours, Once, On 05/20/24 at 1721, For 1 dose 180 (New Bag - Prov ider: Abena Marley RN)2002 (Stopped - Provider: Carmen Gonzalez RN) sodium chloride 0.9 % flush 10 mL (COMPLETED) 10 mL, intravenous, Once, On 05/20/24 at 1854, For 1 dose 1855 (Given - Provid er: Nicole Ospina) documented in this encounter Care Teams Milk Tester Relationship Specialty Start Date End Date Mariya Gutierrez MD [address] [facility] (111) SUNG Liu PCP - General 04/22/11 documented as of this encounter
== END 2024-05-23 11:22 | disposition home or self-care (01) ==
LOC: HO.HWS 10:38
PROVIDERS: PCP Internal Medicine; Visit Provider Advanced Practice Midwife
DX: N83.202 Unspecified ovarian cyst, left side (principal); Z71.2 Person consulting for explanation of examination or test findings
CPT/HCPCS: 99213

== ENCOUNTER → 2024-05-23 10:38 | Outpatient (BNVA) | payer OTHER, SELFPAY | PROVIDERS: PCP Internal Medicine; Visit Provider Advanced Practice Midwife | DX: N83.202 Unspecified ovarian cyst, left side (principal); Z71.2 Person consulting for explanation of examination or test findings | CPT/HCPCS: 99212 ==

== ENCOUNTER → 2024-05-26 11:01 | Outpatient (BNVA) | payer OTHER, SELFPAY | PROVIDERS: PCP Internal Medicine; Visit Provider Physician Assistant Medical | DX: R10.10 Upper abdominal pain, unspecified (principal) | CPT/HCPCS: 96127; 99212 ==

== ENCOUNTER 2024-06-07 10:18 | Outpatient (REF) | payer OTHER, SELFPAY ==
--- OUTSIDE RECORDS SUMMARY | 2024-06-07 10:57 | XMS_ITS | Clinical Summary ---
Author Organization [facility] Address [address] [place] [address] Phone Care Team Providers Care Embedded Developer Name Role Phone Mariya Gutierrez MD Primary Care Provider [phone] Allergies Active Allergy Reactions Criticality Noted Date Comments Morphine 05/20/2024 Penicillins 05/20/2024 Medications ondansetron ODT (ZOFRAN-ODT) 4 mg disintegrating tablet Let 1 tablet dissolve under the tongue three times daily as needed for nausea or vomiting. 10 tablet 5 05/27/19 25 famotidine (PEPCID) 20 mg tablet Take 1 tablet (20 mg total) by mouth 2 (two) times a day for 15 days. 30 tablet 5 06/04/19 25 Encounters Date Type Department Care Team Description 05/20/2024 4:37 PM EST - 05/20/2024 8:30 PM EST Emergency [facility] Emergency [address] [place] [address] Left upper quadrant abdominal pain (Primary Dx); Acute bilateral low back pain without sciatica Discharge Disposition: Home or Self Care from Last 3 Months Social History Tobacco Use Types Packs/Day Years Used Date Smoking Tobacco: Never Assessed Comments Unknown Sex and Gender Information Value Date Recorded Sex Assigned at Female 05/20/2024 4:55 PM EST Legal Sex Female 12:25 PM EST Gender Identity Female 05/20/2024 4:55 PM EST Sexual Orientation Not on file Last Filed Vital Signs [...] 1965 Cervical Cancer Screening: Pap Smear 02/10/1985 Pneumococcal Vaccine: 50+ Years (1 of 1 - PCV) 02/10/2014 Zoster Vaccines (1 of 2) 02/10/2014 Colorectal [...] patient's age to complete this topic Meningococcal B Vacine Aged Out No lo nger eligible based on patient's age to complete [...] appendix. No acute fracture. Procedure Note Mario Leiws MD - 05/20/2024 CT abdomen and pelvis [...] on 05/20/2024 19:13:[address] PROCEDURES Estrellita l Result * (ABNORMAL) Urinalysis with reflex microscopic and culture (05/20/2024 4:06 PM EST) Specific [place] Urine 1.009 1.003 - 1.030 LAB URINALYSIS - AUTOMATED METHOD 05/20/2024 4:35 PM [facility] pH, Urine 6.0 5.0 - 8.0 pH LAB URINALYSIS - AUTOMATED METHOD 05/20/2024 4:35 PM [facility] Leukocytes, Urine Trace(A) Negative LAB URINALYSIS - AUTOMATED METHOD 05/20/2024 4:35 PM [facility] Nitrite, Urine Negative Negative LAB URINALYSIS - AUTOMATED METHOD 05/20/2024 4:35 PM [facility] Protein, Urine Negative <=Trace mg/dL LAB URINALYSIS - AUTOMATED METHOD 05/20/2024 4:35 PM [facility] Glucose, Urine Negative Negative mg/dL LAB URINALYSIS - AUTOMATED METHOD 05/20/2024 4:35 PM [facility] Ketones, Urine Negative Negative mg/dL LAB URINALYSIS - AUTOMATED METHOD 05/20/2024 4:35 PM [facility] Urobilinogen, Urine 0.2 0.2 - 1.0 mg/dL LAB URINALYSIS - AUTOMATED METHOD 05/20/2024 4:35 PM [facility] Bilirubin, Urine Negative Negative LAB URINALYSIS - AUTOMATED METHOD 05/20/2024 4:35 PM [facility] Blood, Urine Negative Negative LAB URINALYSIS - AUTOMATED METHOD 05/20/2024 4:35 PM [facility] RBC, Urine 2.0 0 - 4 /HPF LAB URINALYSIS - AUTOMATED METHOD 05/20/2024 4:35 PM [facility] WBC, Urine 1.6 0 - 4 /HPF LAB URINALYSIS - AUTOMATED METHOD 05/20/2024 4:35 PM [facility] Squamous Epithelial, Urine 19 0 - 60 /LPF LAB URINALYSIS - AUTOMATED METHOD 05/20/2024 4:35 PM [facility] Bacteria, Urine Negative Negative /HPF LAB URINALYSIS - AUTOMATED METHOD 05/20/2024 4:35 PM [facility] Hyaline Casts, Urine 0.0 0 - 3 /LPF LAB URINALYSIS - AUTOMATED METHOD 05/20/2024 4:35 PM [facility] Urine Urine specimen obtained by clean catch procedure / Unknown Non-blood Collection / Unknown 05/20/2024 4:06 PM EST 05/20/2024 4:25 PM EST us Ishan Wolfe MD LAB URINE ORDERABLES Final Resu lt [facility] [address] [place] [address], * Benjamin urine culture tube (05/20/2024 4:06 PM EST) Extra Tube Hold for add-ons. 05/20/2024 6:01 PM [facility] Comment:Auto resulted. Urine Urine specimen obtained by clean catch procedure / Unknown Non-blood Collection / Unknown 05/20/2024 4:06 PM EST 05/20/2024 4:25 PM EST Ishan Wolfe MD LAB URINE ORDERABLES Final Resu lt [facility] [address] [place] [address], [place] [phone] * Culture urine (05/20/2024 4:06 PM EST) Pathologist [facility] Culture, Urine No growth 05/21/2024 7:57 AM [facility] Urine Urine specimen obtained by clean catch procedure / Unknown Non-blood Collection / Unknown 05/20/2024 4:06 PM EST 05/20/2024 4:35 PM EST Ishan Wolfe MD LAB MICROBIOLOGY - GENERAL ORDE RABLES Final Result Performing Organization Address City/[facility]/ZIP Co de Phone Number [facility] [address] [place] [address], [place] [phone] * (ABNORMAL) CBC auto differential (05/20/2024 4:03 PM EST) [facility] WBC 5.6 4.8 - 10.8 K/mcL LAB HEMETOLOGY METHOD 05/20/2024 4:22 PM [facility] RBC 4.30 3.80 - 4.80 M/mcL LAB HEMETOLOGY METHOD 05/20/2024 4:22 PM [facility] Hemoglobin 12.6 11.5 - 16.0 g/dL LAB HEMETOLOGY METHOD 05/20/2024 4:22 PM [facility] Hematocrit 39.6 35.0 - 47.0 % LAB HEMETOLOGY METHOD 05/20/2024 4:22 PM [facility] MCV 93.0 79.0 - 98.0 FL LAB HEMETOLOGY METHOD 05/20/2024 4:22 PM [facility] MCH 29.6 27.0 - 32.0 pcg LAB HEMETOLOGY METHOD 05/20/2024 4:22 PM [facility] MCHC 31.8(L) 32.0 - 37.0 g/dL LAB HEMETOLOGY METHOD 05/20/2024 4:22 PM [facility] RDW 12.5 11.0 - 15.0 % LAB HEMETOLOGY METHOD 05/20/2024 4:22 PM [facility] Platelets 239 130 - 400 K/mcL LAB HEMETOLOGY METHOD 05/20/2024 4:22 PM [facility] MPV 10.4 7.0 - 11.0 FL LAB HEMETOLOGY METHOD 05/20/2024 4:22 PM [facility] NRBC 0.0 <1.0 % LAB HEMETOLOGY METHOD 05/20/2024 4:22 PM [facility] NRBC Absolute 0.00 <0.10 K/mcL LAB HEMETOLOGY METHOD 05/20/2024 4:22 PM [facility] Neutrophils Relative 52.7 % LAB HEMETOLOGY METHOD 05/20/2024 4:22 PM [facility] Lymphocytes Relative 35.7 % LAB HEMETOLOGY METHOD 05/20/2024 4:22 PM [facility] Monocytes Relative 8.6 % LAB HEMETOLOGY METHOD 05/20/2024 4:22 PM [facility] Eosinophils Relative 2.3 % LAB HEMETOLOGY METHOD 05/20/2024 4:22 PM [facility] Basophils Relative 0.5 % LAB HEMETOLOGY METHOD 05/20/2024 4:22 PM [facility] Immature Granulocytes Relative 0.2 % LAB HEMETOLOGY METHOD 05/20/2024 4:22 PM [facility] Neutrophils Absolute 2.92 1.50 - 7.00 K/mcL LAB HEMETOLOGY METHOD 05/20/2024 4:22 PM EST [facility] Lymphocytes Absolute 1.98 1.00 - 5.00 K/mcL LAB HEMETOLOGY METHOD 05/20/2024 4:22 PM EST [facility] Monocytes Absolute 0.48 0.20 - 1.00 K/[facility] LAB HEMETOLOGY METHOD 05/20/2024 4:22 PM EST [facility] Eosinophils Absolute 0.13 0.00 - 0.50 K/[facility] LAB HEMETOLOGY METHOD 05/20/2024 4:22 PM EST [facility] Basophils Absolute 0.03 0.00 - 0.20 K/[facility] LAB HEMETOLOGY METHOD 05/20/2024 4:22 PM [facility] Immature Granulocytes Absolute 0.01 0.00 - 0.03 K/[facility] LAB HEMETOLOGY METHOD 05/20/2024 4:22 PM [facility] Blood Venous blood specimen / Unknown Venipuncture / Unknown 05/20/2024 4:03 PM EST 05/20/2024 4:11 PM EST us Ishan Wolfe MD LAB BLOOD ORDERABLES Final Resu lt [facility] [address] [place] [address], * (ABNORMAL) Comprehensive metabolic panel (05/20/2024 4:03 PM EST) Sodium 136 133 - 145 mmol/L LAB CHEMISTRY METHOD 05/20/2024 4:44 PM EST [facility] Potassium 4.0 3.5 - 5.5 mmol/L LAB CHEMISTRY METHOD 05/20/2024 4:44 PM [facility] Chloride 105 96 - 110 mmol/L LAB CHEMISTRY METHOD 05/20/2024 4:44 PM EST [facility] CO2 26 21 - 32 mmol/L LAB CHEMISTRY METHOD 05/20/2024 4:44 PM [facility] Anion Gap 5 3 - 11 LAB CHEMISTRY METHOD 05/20/2024 4:44 PM [facility] Glucose 102(H) 70 - 100 mg/dL LAB CHEMISTRY METHOD 05/20/2024 4:44 PM [facility] BUN 15 5 - 25 mg/dL LAB CHEMISTRY METHOD 05/20/2024 4:44 PM [facility] Creatinine 0.88 0.50 - 1.10 mg/dL LAB CHEMISTRY METHOD 05/20/2024 4:44 PM [facility] eGFR 75 >=60 mL/min/1. 73m2 LAB CHEMISTRY METHOD 05/20/2024 4:44 PM [facility] Comment:Calculation based on the??Chronic Kidney Disease Epidemiology Collaboration (CKD-EPI) equation refit??without adjustment for race. BUN/Creatinine Ratio 17.0 LAB CHEMISTRY METHOD 05/20/2024 4:44 PM [facility] Calcium 8.9 8.5 - 10.5 mg/dL LAB CHEMISTRY METHOD 05/20/2024 4:44 PM [facility] AST (SGOT) 17 10 - 42 unit/L LAB CHEMISTRY METHOD 05/20/2024 4:44 PM [facility] ALT (SGPT) 24 10 - 60 unit/L LAB CHEMISTRY METHOD 05/20/2024 4:44 PM [facility] Alkaline Phosphatase 77 42 - 121 unit/L LAB CHEMISTRY METHOD 05/20/2024 4:44 PM [facility] Total Protein 7.1 6.0 - 8.0 g/dL LAB CHEMISTRY METHOD 05/20/2024 4:44 PM [facility] Albumin 3.5 3.2 - 5.0 g/dL LAB CHEMISTRY METHOD 05/20/2024 4:44 PM [facility] Total Bilirubin 0.3 0.0 - 1.4 mg/dL LAB CHEMISTRY METHOD 05/20/2024 4:44 PM EST [facility] Blood Venous blood specimen / Unknown Venipuncture / Unknown 05/20/2024 4:03 PM EST 05/20/2024 4:11 PM EST us Ishan Wolfe MD LAB BLOOD ORDERABLES Final Resu lt [facility] [address] [place] [address], [place] [phone] from Last 3 Months Insurance MEDICAID - [place] [facility] PLAN Care Teams Embedded Developer Relationship Specialty Start Date End Date Mariya Gutierrez MD [address] [facility] Primary Care (111) SUNG Liu PCP - General 04/22/11
--- OUTSIDE RECORDS SUMMARY | 2024-06-07 10:57 | XMS_ITS | Encounter Summary ---
Author Organization [employer] Address [address] [place] [address] Care Team Providers Care Cobol Application Developer Name Role Phone Mariya Gutierrez MD Primary Care Provider + [phone] Reason for Visit * Reason Comments Flank Pain Encounter Details Date Type Department Care Team (Late st Contact Info) Description 05/20/2024 4:37 PM EST - 05/20/2024 8:30 PM EST Emergency [facility] Emergency [address] [place] [address] Left upper quadrant abdominal pain [...] PM EST Sexual Orientation Not on file documented as of this [...] EST documented in this encounter Functional Status * Are you deaf or do you have serious difficulty hearing? Answer Date of Assessment Author No 05/20/2024 4:40 PM Lucila Carr RN * Are you blind or do you have serious difficulty seeing, even when wearing glasses? Answer Date of Assessment Author No 05/20/2024 4:40 PM Lucila Carr RN * Do you have serious difficulty walking or climbing stairs? Answer Date of Assessment Author No 05/20/2024 4:40 PM Lucila Carr RN * Do you have serious difficulty dressing or bathing? Answer Date of Assessment Author No 05/20/2024 4:40 PM Lucila Carr RN * Because of a physical, mental, or emotional condition, do you have serious difficulty doing errandsalone such as visiting the doctor? Answer Date of Assessment Author No 05/20/2024 4:40 PM Lucila Carr RN documented as of this encounter Mental Status * Because of a physical, mental, or emotional condition, do you have serious difficulty concentrating, remembering, or making decisions? (5 years old or older) Answer Entry Date Author No 05/20/2024 4:40 PM Lucila Carr RN documented in this encounter Medications at Time of Discharge famotidine (PEPCID) 20 mg tablet Take 1 tablet (20 mg total) by mouth 2 (two) times a day for 15 days. 30 tablet 05/20/2024 5 ondansetron ODT (ZOFRAN-ODT) 4 mg disintegrating tablet Let 1 tablet dissolve under the tongue three times daily as needed for nausea or vomiting. 10 tablet 05/20/2024 5 documented as of this encounter Ordered Prescriptions Prescription Sig Dispense Quantity Refills Last Filled Start Date End Date famotidine (PEPCID) 20 mg tablet Take 1 tablet (20 mg total) by mouth 2 (two) times a day for 15 days. 30 tablet 05/20/2024 5 ondansetron ODT (ZOFRAN-ODT) 4 mg disintegrating tablet Let 1 tablet dissolve under the tongue three times daily as needed for nausea or vomiting. 10 tablet 05/20/2024 5 documented in this encounter Discharge Disposition Disposition Code Departure Means Destination Comment s Home or Self Longterm Pt stated understanding of discharge instructions via [...] REFLEX MICROSCOPIC AND CULTURE - Abnormal Specific [place] Urine 1.009 pH, Urine 6.0 Leukocytes, Urine [...] Procedure Abnormality Status --------- ------ CBC auto differential[[id number]] Abnormal Final result Please view results for these tests on the individual orders. URINALYSIS WITH REFLEX MICROSCOPIC AND CULTURE Narrative: The following orders were created for panel order Urinalysis with reflex microscopic and culture. Procedure Abnormality Status --------- ------ Urinalysis with reflex m...[[id number]] Abnormal Final result Benjamin urine culture tube[[id number]] Final result Please view results for these [...] Vital signs are stable. Interviewed with an pilot plant operator. Labs and CT are unremarkable. Patient discharged home follow-up with her primary care doctor toleratingp.o. Medications sodium chloride 0.9 % bolus 1,000 mL (0 mL intravenous Stopped 05/20/242002) ondansetron (PF) (ZOFRAN) injection 4 mg (4 mg intravenous Given 05/20/241808) HYDROmorphone (PF) injection 0.5 mg (0.5 mg intravenous Given 05/20/241808) sodium chloride 0.9 % flush 10 mL (10 mL intravenous Given 05/20/24 1855) iopamidoL (ISOVUE-370) 370 mg iodine /mL (76 %) injection 90 mL (90 mL intravenous Given 05/20/24 185) Clinical Impressions as of 05/20/242009 Left upper [...] 05/20/241954 BHARATH Pringle 05/20/242001 BHARATH Pringle 05/20/242010 Cosigned by Steve Suarez DO at 05/20/2024 8:59 PM EST documented in this encounter Plan of Treatment [...] IMG CT PROCEDURES Estrellita l Result * Culture urine (05/20/2024 4:06 PM EST) Culture, Urine No growth 05/21/2024 7:57 AM EST [facility] Urine Urine specimen obtained by clean catch procedure / Unknown Non-blood Collection / Unknown 05/20/2024 4:06 PM EST 05/20/2024 4:35 PM EST Ishan Wolfe MD LAB MICROBIOLOGY - GENERAL ORDE RABLES Final Result Performing Organization Address [facility]/ZIP Co de Phone Number [facility] [address] [place] [address], [place] [phone] * Benjamin urine culture tube (05/20/2024 4:06 PM EST) Pathologist [facility] Extra Tube Hold for add-ons. 05/20/2024 6:01 PM [facility] Comment:Auto resulted. Urine Urine specimen obtained by clean catch procedure / Unknown Non-blood Collection / Unknown 05/20/2024 4:06 PM EST 05/20/2024 4:25 PM EST Ishan Wolfe MD LAB URINE ORDERABLES Final Resu lt Performing Organization Address [facility]/ZIP Co de Phone Number [facility] [address] [place] [address], [place] [phone] * (ABNORMAL) Urinalysis with reflex microscopic and culture (05/20/2024 4:06 PM EST) [facility] Specific [place] Urine 1.009 1.003 - 1.030 LAB URINALYSIS [...] MD LAB URINE ORDERABLES Final Resu lt [facility] [address] [place] [address], * (ABNORMAL) CBC auto differential (05/20/2024 4:03 PM EST) [facility] WBC 5.6 4.8 - 10.8 K/mcL [...] 4:22 PM [facility] Lymphocytes Absolute 1.98 1.00 - 5.00 K/mcL LAB HEMETOLOGY METHOD 05/20/2024 4:22 PM [facility] Monocytes Absolute 0.48 0.20 - 1.00 K/mcL LAB HEMETOLOGY METHOD 05/20/2024 4:22 PM [facility] Eosinophils Absolute 0.13 0.00 - 0.50 K/mcL LAB HEMETOLOGY METHOD 05/20/2024 4:22 PM [facility] Basophils Absolute 0.03 [...] MD LAB BLOOD ORDERABLES Final Resu lt [facility] [address] [place] [address], * (ABNORMAL) Comprehensive metabolic panel (05/20/2024 4:03 PM EST) Sodium 136 133 - 145 mmol/L LAB CHEMISTRY METHOD 05/20/2024 4:44 PM [facility] Potassium 4.0 3.5 - 5.5 mmol/L LAB CHEMISTRY METHOD 05/20/2024 4:44 PM [facility] Chloride 105 96 - 110 mmol/L LAB CHEMISTRY METHOD 05/20/2024 4:44 PM [facility] CO2 26 21 [...] 17.0 LAB CHEMISTRY METHOD 05/20/2024 4:44 PM EST [facility] Calcium 8.9 8.5 - [...] 05/20/2024 4:44 PM [facility] Blood Venous blood specimen / Unknown Venipuncture / Unknown 05/20/2024 4:03 PM EST 05/20/2024 4:11 PM EST us Ishan Wolfe MD LAB BLOOD ORDERABLES Final Resu lt [facility] [address] [place] [address], [place] [phone] documented in this encounter Visit Diagnoses Diagnosis [...] On 05/20/24 at 1721, For 1 dose 1808 (Given - Provid er: Abena Marley RN) iopamidoL (ISOVUE-370) 370 mg iodine /mL (76 %) injection 90 mL (COMPLETED) 90 mL, intravenous, Once in imaging, Starting on 05/20/24 at 1853, For 1 dose 1855 (Given - Provid er: Nicole Ospina) ondansetron (PF) (ZOFRAN) injection 4 mg (COMPLETED) 4 mg, intravenous, Once, On 05/20/24 at 1721, For 1 dose 1808 (Given - Provid er: Abena Marley RN) sodium chloride 0.9 % bolus 1,000 mL (COMPLETED) 1,000 mL, intravenous, at 1,000 mL/hr, Administer over 1 Hours, Once, On 05/20/24 at 1721, For 1 dose 1808 (New Bag - Prov ider: Abena Marley RN)2002 (Stopped - Provider: Carmen Gonzalez RN) sodium chloride 0.9 % flush 10 mL (COMPLETED) 10 mL, intravenous, Once, On 05/20/24 at 1854, For 1 dose 1855 (Given - Provid er: Nicole Ospina) documented in this encounter Care Teams Cobol Application Developer Relationship Specialty Start Date End Date Mariya Gutierrez MD [address] [facility] Primary Care (111) SUNG Liu PCP - General 04/22/11 documented as of this encounter
== END 2024-06-07 10:19 | disposition home or self-care (01) ==
LOC: HO.MAMMO 10:18
PROVIDERS: PCP Internal Medicine; Visit Provider Internal Medicine
DX: Z12.31 Encounter for screening mammogram for malignant neoplasm of breast (principal)
CPT/HCPCS: 77063; 77067

== ENCOUNTER → 2024-06-07 10:45 | Outpatient (BNV) | payer OTHER, SELFPAY | PROVIDERS: PCP Internal Medicine; Visit Provider Internal Medicine | DX: Z12.31 Encounter for screening mammogram for malignant neoplasm of breast (principal) | CPT/HCPCS: 77063; 77067 ==

== ENCOUNTER 2024-06-08 13:46 | Outpatient (REF) | payer OTHER, SELFPAY ==
--- NOTE | ~2024-06-08 | US_ITS ---
EXAMINATION: US PELVIS CLINICAL INFORMATION: Unspecified ovarian cyst. COMPARISON: 06/23/2023. MRI pelvis 09/15/2023. 08/05/2017 CT exam. TECHNIQUE: Ultrasound of the pelvis is performed using both transabdominal and transvaginal transducers along with Doppler. Transvaginal imaging is performed due to inadequate visualization transabdominally. FINDINGS: Uterus: The uterus is surgically absent. Adnexa: Both ovaries are visualized. There is normal color flow to the adnexa. There is no ovarian torsion. There is no pelvic ascites or fluid collection. Right ovary measures 2.5 x 1.5 x 1.6 cm. Volume = 3.2 mL. Left ovary is not well seen. There is a mildly elongated left ovarian cystic structure measuring 3.2 x 1.5 x 1.5 cm, most likely arising from and replacing the left ovarian stroma. On prior MRI this measured 1.8 x 1.3 x 2.7 cm. On prior ultrasound this measured 1.7 x 1.5 x 1.6 cm, and prior to that on CT exam 08/05/2017 measured 1.8 x 1.5 x 2.0 cm. US/US pelvic and transvaginal IMPRESSION: 1. Uterus is surgically absent. No free pelvic fluid. 2. Normal right ovary. 3. Slightly enlarging simple appearing left ovarian cyst. This is consistent with a benign entity. Electronically signed by: Miguel Willoughby MD 06/08/2024 02:51 PM [facility] [place] [place]
--- OUTSIDE RECORDS SUMMARY | 2024-06-08 14:47 | XMS_ITS | Encounter Summary ---
Author Organization [employer] Address [address] [place] [address] Care Team Providers Care Corporate Strategist Name Role Phone Mariya Gutierrez MD Primary Care Provider + [phone] Reason for Visit * Reason Comments Flank Pain Encounter Details Date Type Department Care Team (Late st Contact Info) Description 05/20/2024 4:37 PM EST - 05/20/2024 8:30 PM EST Emergency [facility] Emergency [address] [place] [address] Left upper quadrant abdominal pain [...] Means Destination Comment s Home or Self Shelter Pt stated understanding of discharge instructions via [...] REFLEX MICROSCOPIC AND CULTURE - Abnormal Specific [place] Urine 1.009 pH, Urine 6.0 Leukocytes, Urine [...] Procedure Abnormality Status --------- ------ CBC auto differential[[id number]] Abnormal Final result Please view results for these tests on the individual orders. URINALYSIS WITH REFLEX MICROSCOPIC AND CULTURE Narrative: The following orders were created for panel order Urinalysis with reflex microscopic and culture. Procedure Abnormality Status --------- ------ Urinalysis with reflex m...[[id number]] Abnormal Final result Benjamin urine culture tube[[id number]] Final result Please view results for these [...] Vital signs are stable. Interviewed with an ship cleaner. Labs and CT are unremarkable. Patient discharged [...] Urine No growth 05/21/2024 7:57 AM EST [facility] Urine Urine specimen obtained by clean catch procedure / Unknown Non-blood Collection / Unknown 05/20/2024 4:06 PM EST 05/20/2024 4:35 PM EST Ishan Wolfe MD LAB MICROBIOLOGY - GENERAL ORDE RABLES Final Result Performing Organization Address [facility]/ZIP Co de Phone Number [facility] [address] [place] [address], [place] [phone] * Benjamin urine culture tube (05/20/2024 4:06 PM EST) Pathologist [facility] Extra Tube Hold for add-ons. 05/20/2024 6:01 PM [facility] Comment:Auto resulted. Urine Urine specimen obtained by clean catch procedure / Unknown Non-blood Collection / Unknown 05/20/2024 4:06 PM EST 05/20/2024 4:25 PM EST Ishan Wolfe MD LAB URINE ORDERABLES Final Resu lt Performing Organization Address [facility]/ZIP Co de Phone Number [facility] [address] [place] [address], [place] [phone] * (ABNORMAL) Urinalysis with reflex microscopic and culture (05/20/2024 4:06 PM EST) [facility] Specific [place] Urine 1.009 1.003 - 1.030 LAB URINALYSIS - AUTOMATED METHOD 05/20/2024 4:35 PM [facility] pH, Urine 6.0 5.0 - 8.0 pH LAB URINALYSIS - AUTOMATED METHOD 05/20/2024 4:35 PM [facility] Leukocytes, Urine Trace(A) Negative LAB URINALYSIS - AUTOMATED METHOD 05/20/2024 4:35 PM [facility] Nitrite, Urine Negative Negative LAB URINALYSIS - AUTOMATED METHOD 05/20/2024 4:35 PM [facility] Protein, Urine Negative <=Trace mg/dL LAB URINALYSIS - AUTOMATED METHOD 05/20/2024 4:35 PM [facility] Glucose, Urine Negative Negative mg/dL LAB URINALYSIS - AUTOMATED METHOD 05/20/2024 4:35 PM [facility] Ketones, Urine Negative Negative mg/dL LAB URINALYSIS - AUTOMATED METHOD 05/20/2024 4:35 PM [facility] Urobilinogen, Urine 0.2 0.2 - 1.0 mg/dL LAB URINALYSIS - AUTOMATED METHOD 05/20/2024 4:35 PM [facility] Bilirubin, Urine Negative Negative LAB URINALYSIS - AUTOMATED METHOD 05/20/2024 4:35 PM [facility] Blood, Urine Negative Negative LAB URINALYSIS - AUTOMATED METHOD 05/20/2024 4:35 PM [facility] RBC, Urine 2.0 0 - 4 /HPF LAB URINALYSIS - AUTOMATED METHOD 05/20/2024 4:35 PM [facility] WBC, Urine 1.6 0 - 4 /HPF LAB URINALYSIS - AUTOMATED METHOD 05/20/2024 4:35 PM [facility] Squamous Epithelial, Urine 19 0 - 60 /LPF LAB URINALYSIS - AUTOMATED METHOD 05/20/2024 4:35 PM [facility] Bacteria, Urine Negative Negative /HPF LAB URINALYSIS - AUTOMATED METHOD 05/20/2024 4:35 PM [facility] Hyaline Casts, Urine 0.0 0 - 3 /LPF LAB URINALYSIS - AUTOMATED METHOD 05/20/2024 4:35 PM [facility] Urine Urine specimen obtained by clean catch procedure / Unknown Non-blood Collection / Unknown 05/20/2024 4:06 PM EST 05/20/2024 4:25 PM EST us Ishan Wolfe MD LAB URINE ORDERABLES Final Resu lt [facility] [address] [place] [address], * (ABNORMAL) CBC auto differential (05/20/2024 4:03 PM EST) [facility] WBC 5.6 4.8 - 10.8 K/mcL LAB HEMETOLOGY METHOD 05/20/2024 4:22 PM [facility] RBC 4.30 3.80 - 4.80 M/mcL LAB HEMETOLOGY METHOD 05/20/2024 4:22 PM [facility] Hemoglobin 12.6 11.5 - 16.0 g/dL LAB HEMETOLOGY METHOD 05/20/2024 4:22 PM [facility] Hematocrit 39.6 35.0 - 47.0 % LAB HEMETOLOGY METHOD 05/20/2024 4:22 PM [facility] MCV 93.0 79.0 - 98.0 FL LAB HEMETOLOGY METHOD 05/20/2024 4:22 PM [facility] MCH 29.6 27.0 - 32.0 pcg LAB HEMETOLOGY METHOD 05/20/2024 4:22 PM [facility] MCHC 31.8(L) 32.0 - 37.0 g/dL LAB HEMETOLOGY METHOD 05/20/2024 4:22 PM [facility] RDW 12.5 11.0 - 15.0 % LAB HEMETOLOGY METHOD 05/20/2024 4:22 PM [facility] Platelets 239 130 - 400 K/mcL LAB HEMETOLOGY METHOD 05/20/2024 4:22 PM [facility] MPV 10.4 7.0 - 11.0 FL LAB HEMETOLOGY METHOD 05/20/2024 4:22 PM [facility] NRBC 0.0 <1.0 % LAB HEMETOLOGY METHOD 05/20/2024 4:22 PM [facility] NRBC Absolute 0.00 <0.10 K/mcL LAB HEMETOLOGY METHOD 05/20/2024 4:22 PM [facility] Neutrophils Relative 52.7 % LAB HEMETOLOGY METHOD 05/20/2024 4:22 PM [facility] Lymphocytes Relative 35.7 % LAB HEMETOLOGY METHOD 05/20/2024 4:22 PM [facility] Monocytes Relative 8.6 % LAB HEMETOLOGY METHOD 05/20/2024 4:22 PM [facility] Eosinophils Relative 2.3 % LAB HEMETOLOGY METHOD 05/20/2024 4:22 PM [facility] Basophils Relative 0.5 % LAB HEMETOLOGY METHOD 05/20/2024 4:22 PM [facility] Immature Granulocytes Relative 0.2 % LAB HEMETOLOGY METHOD 05/20/2024 4:22 PM [facility] Neutrophils Absolute 2.92 1.50 - 7.00 K/mcL LAB HEMETOLOGY METHOD 05/20/2024 4:22 PM [facility] Lymphocytes Absolute 1.98 1.00 - 5.00 K/mcL LAB HEMETOLOGY METHOD 05/20/2024 4:22 PM [facility] Monocytes Absolute 0.48 0.20 - 1.00 K/mcL LAB HEMETOLOGY METHOD 05/20/2024 4:22 PM [facility] Eosinophils Absolute 0.13 0.00 - 0.50 K/mcL LAB HEMETOLOGY METHOD 05/20/2024 4:22 PM [facility] Basophils Absolute 0.03 0.00 - 0.20 K/mcL LAB HEMETOLOGY METHOD 05/20/2024 4:22 PM [facility] Immature Granulocytes Absolute 0.01 0.00 - 0.03 K/mcL LAB HEMETOLOGY METHOD 05/20/2024 4:22 PM [facility] Blood Venous blood specimen / Unknown Venipuncture / Unknown 05/20/2024 4:03 PM EST 05/20/2024 4:11 PM EST us Ishan Wolfe MD LAB BLOOD ORDERABLES Final Resu lt [facility] [address] [place] [address], * (ABNORMAL) Comprehensive metabolic panel (05/20/2024 4:03 PM EST) Sodium 136 133 - 145 mmol/L LAB CHEMISTRY METHOD 05/20/2024 4:44 PM [facility] Potassium 4.0 3.5 - 5.5 mmol/L LAB CHEMISTRY METHOD 05/20/2024 4:44 PM [facility] Chloride 105 96 - 110 mmol/L LAB CHEMISTRY METHOD 05/20/2024 4:44 PM [facility] CO2 26 21 - 32 mmol/L LAB CHEMISTRY METHOD 05/20/2024 4:44 PM [facility] Anion Gap 5 3 - 11 LAB CHEMISTRY METHOD 05/20/2024 4:44 PM [facility] Glucose 102(H) 70 - 100 mg/dL LAB CHEMISTRY METHOD 05/20/2024 4:44 PM [facility] BUN 15 5 - 25 mg/dL LAB CHEMISTRY METHOD 05/20/2024 4:44 PM [facility] Creatinine 0.88 0.50 - 1.10 mg/dL LAB CHEMISTRY METHOD 05/20/2024 4:44 PM [facility] eGFR 75 >=60 mL/min/1. 73m2 LAB CHEMISTRY METHOD 05/20/2024 4:44 PM [facility] Comment:Calculation based on the??Chronic Kidney Disease Epidemiology Collaboration (CKD-EPI) equation refit??without adjustment for race. BUN/Creatinine Ratio 17.0 LAB CHEMISTRY METHOD 05/20/2024 4:[address] [facility] Calcium 8.9 8.5 - 10.5 mg/dL LAB CHEMISTRY METHOD 05/20/2024 4:44 PM [facility] AST (SGOT) 17 10 - 42 unit/L LAB CHEMISTRY METHOD 05/20/2024 4:44 PM [facility] ALT (SGPT) 24 10 - 60 unit/L LAB CHEMISTRY METHOD 05/20/2024 4:44 PM [facility] Alkaline Phosphatase 77 42 - 121 unit/L LAB CHEMISTRY METHOD 05/20/2024 4:44 PM [facility] Total Protein 7.1 6.0 - 8.0 g/dL LAB CHEMISTRY METHOD 05/20/2024 4:44 PM [facility] Albumin 3.5 3.2 - 5.0 g/dL LAB CHEMISTRY METHOD 05/20/2024 4:44 PM [facility] Total Bilirubin 0.3 0.0 - 1.4 mg/dL LAB CHEMISTRY METHOD 05/20/2024 4:44 PM [facility] Blood Venous blood specimen / Unknown Venipuncture / Unknown 05/20/2024 4:03 PM EST 05/20/2024 4:11 PM EST us Ishan Wolfe MD LAB BLOOD ORDERABLES Final Resu lt [facility] [address] [place] [address], [place] [phone] documented in this encounter Visit Diagnoses Diagnosis [...] [place]) documented in this encounter Care Teams Corporate Strategist Relationship Specialty Start Date End Date Mariya Gutierrez MD [address] [facility] Primary Care (111) SUNG Liu PCP - General 04/22/11 documented as of this encounter
--- OUTSIDE RECORDS SUMMARY | 2024-06-08 14:47 | XMS_ITS | Clinical Summary ---
Author Organization [facility] Address [address] [place] [address] Phone Care Team Providers Care Physician Surgeon Name Role Phone Mariya Gutierrez MD Primary Care Provider [phone] Allergies Active Allergy Reactions Criticality Noted Date [...] EST - 05/20/2024 8:30 PM EST Emergency [facility] Emergency [address] [place] [address] Left upper quadrant abdominal pain [...] and culture (05/20/2024 4:06 PM EST) Specific [place] Urine 1.009 1.003 - 1.030 LAB URINALYSIS - AUTOMATED METHOD 05/20/2024 4:35 PM [facility] pH, Urine 6.0 5.0 - 8.0 pH LAB URINALYSIS - AUTOMATED METHOD 05/20/2024 4:35 PM [facility] Leukocytes, Urine Trace(A) Negative LAB URINALYSIS - AUTOMATED METHOD 05/20/2024 4:35 PM [facility] Nitrite, Urine Negative Negative LAB URINALYSIS - AUTOMATED METHOD 05/20/2024 4:35 PM [facility] Protein, Urine Negative <=Trace mg/dL LAB URINALYSIS - AUTOMATED METHOD 05/20/2024 4:35 PM [facility] Glucose, Urine Negative Negative mg/dL LAB URINALYSIS - AUTOMATED METHOD 05/20/2024 4:35 PM [facility] Ketones, Urine Negative Negative mg/dL LAB URINALYSIS - AUTOMATED METHOD 05/20/2024 4:35 PM [facility] Urobilinogen, Urine 0.2 0.2 - 1.0 mg/dL LAB URINALYSIS - AUTOMATED METHOD 05/20/2024 4:35 PM [facility] Bilirubin, Urine Negative Negative LAB URINALYSIS - AUTOMATED METHOD 05/20/2024 4:35 PM [facility] Blood, Urine Negative Negative LAB URINALYSIS - AUTOMATED METHOD 05/20/2024 4:35 PM [facility] RBC, Urine 2.0 0 - 4 /HPF LAB URINALYSIS - AUTOMATED METHOD 05/20/2024 4:35 PM [facility] WBC, Urine 1.6 0 - 4 /HPF LAB URINALYSIS - AUTOMATED METHOD 05/20/2024 4:35 PM [facility] Squamous Epithelial, Urine 19 0 - 60 /LPF LAB URINALYSIS - AUTOMATED METHOD 05/20/2024 4:35 PM [facility] Bacteria, Urine Negative Negative /HPF LAB URINALYSIS - AUTOMATED METHOD 05/20/2024 4:35 PM [facility] Hyaline Casts, Urine 0.0 0 - 3 /LPF LAB URINALYSIS - AUTOMATED METHOD 05/20/2024 4:35 PM [facility] Urine Urine specimen obtained by clean catch procedure / Unknown Non-blood Collection / Unknown 05/20/2024 4:06 PM EST 05/20/2024 4:25 PM EST us Ishan Wolfe MD LAB URINE ORDERABLES Final Resu lt [facility] [address] [place] [address], * Benjamin urine culture tube (05/20/2024 4:06 PM EST) Extra Tube Hold for add-ons. 05/20/2024 6:01 PM [facility] Comment:Auto resulted. Urine Urine specimen obtained by clean catch procedure / Unknown Non-blood Collection / Unknown 05/20/2024 4:06 PM EST 05/20/2024 4:25 PM EST Ishan Wolfe MD LAB URINE ORDERABLES Final Resu lt [facility] [address] [place] [address], [place] [phone] * Culture urine (05/20/2024 4:06 PM EST) Pathologist [facility] Culture, Urine No growth 05/21/2024 7:57 AM [facility] Urine Urine specimen obtained by clean catch procedure / Unknown Non-blood Collection / Unknown 05/20/2024 4:06 PM EST 05/20/2024 4:35 PM EST Ishan Wolfe MD LAB MICROBIOLOGY - GENERAL ORDE RABLES Final Result Performing Organization Address City/[facility]/ZIP Co de Phone Number [facility] [address] [place] [address], [place] [phone] * (ABNORMAL) CBC auto differential (05/20/2024 4:03 PM EST) [facility] WBC 5.6 4.8 - 10.8 K/mcL LAB HEMETOLOGY METHOD 05/20/2024 4:22 PM [facility] RBC 4.30 3.80 - 4.80 M/mcL LAB HEMETOLOGY METHOD 05/20/2024 4:22 PM [facility] Hemoglobin 12.6 11.5 - 16.0 g/dL LAB HEMETOLOGY METHOD 05/20/2024 4:22 PM [facility] Hematocrit 39.6 35.0 - 47.0 % LAB HEMETOLOGY METHOD 05/20/2024 4:22 PM [facility] MCV 93.0 79.0 - 98.0 FL LAB HEMETOLOGY METHOD 05/20/2024 4:22 PM [facility] MCH 29.6 27.0 - 32.0 pcg LAB HEMETOLOGY METHOD 05/20/2024 4:22 PM [facility] MCHC 31.8(L) 32.0 - 37.0 g/dL LAB HEMETOLOGY METHOD 05/20/2024 4:22 PM [facility] RDW 12.5 11.0 - 15.0 % LAB HEMETOLOGY METHOD 05/20/2024 4:22 PM [facility] Platelets 239 130 - 400 K/mcL LAB HEMETOLOGY METHOD 05/20/2024 4:22 PM [facility] MPV 10.4 7.0 - 11.0 FL LAB HEMETOLOGY METHOD 05/20/2024 4:22 PM [facility] NRBC 0.0 <1.0 % LAB HEMETOLOGY METHOD 05/20/2024 4:22 PM [facility] NRBC Absolute 0.00 <0.10 K/mcL LAB HEMETOLOGY METHOD 05/20/2024 4:22 PM [facility] Neutrophils Relative 52.7 % LAB HEMETOLOGY METHOD 05/20/2024 4:22 PM [facility] Lymphocytes Relative 35.7 % LAB HEMETOLOGY METHOD 05/20/2024 4:22 PM [facility] Monocytes Relative 8.6 % LAB HEMETOLOGY METHOD 05/20/2024 4:22 PM [facility] Eosinophils Relative 2.3 % LAB HEMETOLOGY METHOD 05/20/2024 4:22 PM [facility] Basophils Relative 0.5 % LAB HEMETOLOGY METHOD 05/20/2024 4:22 PM [facility] Immature Granulocytes Relative 0.2 % LAB HEMETOLOGY METHOD 05/20/2024 4:22 PM [facility] Neutrophils Absolute 2.92 1.50 - 7.00 K/mcL LAB HEMETOLOGY METHOD 05/20/2024 4:22 PM EST [facility] Lymphocytes Absolute 1.98 1.00 - 5.00 K/mcL LAB HEMETOLOGY METHOD 05/20/2024 4:22 PM EST [facility] Monocytes Absolute 0.48 0.20 - 1.00 K/[facility] LAB HEMETOLOGY METHOD 05/20/2024 4:22 PM EST [facility] Eosinophils Absolute 0.13 0.00 - 0.50 K/[facility] LAB HEMETOLOGY METHOD 05/20/2024 4:22 PM EST [facility] Basophils Absolute 0.03 0.00 - 0.20 K/[facility] LAB HEMETOLOGY METHOD 05/20/2024 4:22 PM [facility] Immature Granulocytes Absolute 0.01 0.00 - 0.03 K/[facility] LAB HEMETOLOGY METHOD 05/20/2024 4:22 PM [facility] Blood Venous blood specimen / Unknown Venipuncture / Unknown 05/20/2024 4:03 PM EST 05/20/2024 4:11 PM EST us Ishan Wolfe MD LAB BLOOD ORDERABLES Final Resu lt [facility] [address] [place] [address], * (ABNORMAL) Comprehensive metabolic panel (05/20/2024 4:03 PM EST) Sodium 136 133 - 145 mmol/L LAB CHEMISTRY METHOD 05/20/2024 4:44 PM EST [facility] Potassium 4.0 3.5 - 5.5 mmol/L LAB CHEMISTRY METHOD 05/20/2024 4:44 PM [facility] Chloride 105 96 - 110 mmol/L LAB CHEMISTRY METHOD 05/20/2024 4:44 PM EST [facility] CO2 26 21 - 32 mmol/L LAB CHEMISTRY METHOD 05/20/2024 4:44 PM [facility] Anion Gap 5 3 - 11 LAB CHEMISTRY METHOD 05/20/2024 4:44 PM [facility] Glucose 102(H) 70 - 100 mg/dL LAB CHEMISTRY METHOD 05/20/2024 4:44 PM [facility] BUN 15 5 - 25 mg/dL LAB CHEMISTRY METHOD 05/20/2024 4:44 PM [facility] Creatinine 0.88 0.50 - 1.10 mg/dL LAB CHEMISTRY METHOD 05/20/2024 4:44 PM [facility] eGFR 75 >=60 mL/min/1. 73m2 LAB CHEMISTRY METHOD 05/20/2024 4:44 PM [facility] Comment:Calculation based on the??Chronic Kidney Disease Epidemiology Collaboration (CKD-EPI) equation refit??without adjustment for race. BUN/Creatinine Ratio 17.0 LAB CHEMISTRY METHOD 05/20/2024 4:44 PM [facility] Calcium 8.9 8.5 - 10.5 mg/dL LAB CHEMISTRY METHOD 05/20/2024 4:44 PM [facility] AST (SGOT) 17 10 - 42 unit/L LAB CHEMISTRY METHOD 05/20/2024 4:44 PM [facility] ALT (SGPT) 24 10 - 60 unit/L LAB CHEMISTRY METHOD 05/20/2024 4:44 PM [facility] Alkaline Phosphatase 77 42 - 121 unit/L LAB CHEMISTRY METHOD 05/20/2024 4:44 PM [facility] Total Protein 7.1 6.0 - 8.0 g/dL LAB CHEMISTRY METHOD 05/20/2024 4:44 PM [facility] Albumin 3.5 3.2 - 5.0 g/dL LAB CHEMISTRY METHOD 05/20/2024 4:44 PM [facility] Total Bilirubin 0.3 0.0 - 1.4 mg/dL LAB CHEMISTRY METHOD 05/20/2024 4:44 PM EST [facility] ([facility] Blood Venous blood specimen / Unknown Venipuncture / Unknown 05/20/2024 4:03 PM EST 05/20/2024 4:11 PM EST us Ishan Wolfe MD LAB BLOOD ORDERABLES Final Resu lt [facility] ([facility] [[email or web address] [address] [place] [address], [place] [phone] from Last 3 Months Insurance MEDICAID - [place] [facility] Care Teams Physician Surgeon Relationship Specialty Start Date End Date Mariya Gutierrez MD [address] [facility] Primary Care (111) SUNG Liu PCP - General 04/22/11
== END 2024-06-08 13:47 | disposition home or self-care (01) ==
LOC: HO.US 13:46
PROVIDERS: PCP Internal Medicine; Visit Provider Advanced Practice Midwife
DX: N83.209 Unspecified ovarian cyst, unspecified side (principal)
CPT/HCPCS: 76830; 76856

== ENCOUNTER → 2024-06-08 13:48 | Outpatient (BNV) | payer OTHER, SELFPAY | PROVIDERS: PCP Internal Medicine; Visit Provider Radiology Diagnostic Radiology | DX: N83.202 Unspecified ovarian cyst, left side (principal) | CPT/HCPCS: 76830; 76856 ==

== ENCOUNTER 2024-06-13 16:04 | Outpatient (AMB) | payer OTHER, SELFPAY ==
[2024-06-13 16:36] VITALS: BP 126/70; BMI 27.3
--- NOTE | 2024-06-13 16:36 | MHC.PC.OV ---
Vital Signs 06/13/24 16:36 Height 4 ft 11 in Weight 135 lb BMI 27.3 BP 126/70 Blood Pressure Location Lt brachial Position Sitting Intake Visit Reasons: 4 mo dm Intake Note: Patient here for a 4 month follow up Feedlot Manager Required: Yes Feedlot Manager Language: Microstrategy Architect Developer Name: Suzie Hooks MD Information Interpreted: non-clinical & clinical Accompanied by: Self / Same As Patient Allergies morphine [MORPHINE] Allergy (Intermediate, Verified 06/13/24 16:47) TACHYCARDIA, palpitations Penicillins Allergy (Intermediate, Verified 06/13/24 16:47) RASH Sulfa (Sulfonamide Antibiotics) Allergy (Intermediate, Verified 06/13/24 16:47) rash Medication List - Last Reconciled 06/13/24 by Suzie Hooks MD atorvastatin 40 mg PO BEDTIME 90 days bismuth subsalicylate (Bismuth) 2 tabs PO QID 14 days blood sugar diagnostic As directed blood sugar diagnostic (FreeStyle Lite Strips) Use 1 to test blood sugar once a day buspirone 5 mg PO BID cyclobenzaprine 10 mg PO BEDTIME 30 days lancets Use 1 lancet once a day levothyroxine 75 mcg PO DAILY 90 days loperamide (Imodium A-D) 2 mg PO Q6H PRN meloxicam 15 mg PO DAILY 30 days metformin 500 mg PO BID 90 days omeprazole 20 mg PO BID 14 days prazosin 1 mg PO BEDTIME PRN sucralfate 1 g (10 mL) PO QIDACHS 4 weeks Tobacco use date assessed: 05/26/24 Dental Screening Dental Screen Date: 05/26/24 HPI HPI Comments History of Present Illness Details The patient is a 59-year-old female presenting with a follow-up for chronic condition management and recent hospitalization for questionable pancreatitis as per patient. The patient reported experiencing severe abdominal pain on May 20, which led to a visit to [facility]. She was evaluated and reportedly diagnosed with pancreatitis, although she lacks the documentation confirming this diagnosis. The patient recalls receiving a prescription, though she is uncertain of the specific antibiotic. Concurrently, the patient mentions a kidney infection, for which she was also prescribed antibiotics. The patient has a chronic condition involving thyroid disorder managed with levothyroxine and experiences anxiety, treated with buspirone. Additionally, she reports chronic diarrhea managed with loperamide and sporadic dyspepsia treated with omeprazole. She was noted to have hypertension, which she manages as part of her chronic conditions. The patient denies current symptoms of diarrhea. She experiences occasional episodes of nausea and vomiting, which could be associated with her reported pancreatitis. She does not recall all medication names or exact diagnoses and plans to request medical records for clarification. Recent labs were drawn, but results were not yet available during the visit. She also has diabetes mellitus type 2 and her A1c today 6.4%. She has mild major depression in remission. [facility] Medical History Upper abdominal pain Ovarian cyst History of uterine cancer Tubular adenoma Physical exam GERD (gastroesophageal reflux disease) Mild recurrent major depression High cholesterol Lower back pain Anxiety Hypothyroidism Dyslipidemia Diabetes mellitus Surgical History History of toe surgery H/O: Lipoma Status post breast reduction History of laparoscopic cholecystectomy History of total abdominal hysterectomy Family History Father Hypertension Diabetes Mother Hypertension Diabetes Stroke Cancer Paternal Grandmother Cancer Family/Other Mental health disorder Social History Housing: Apartment Alcohol intake: current Alcohol intake frequency: holidays/special occasions only Alcohol type: hard liquor Patient Tobacco Use Status: Never used Tobacco e-Cigarette/Vaping Use: Never Used Second Hand Smoke Exposure: No service: No Current occupational status: disabled Cognitive needs: No Hearing needs: No Vision needs: Yes Questionnaire Thrive Questionnaire Date Thrive assessed: 05/26/24 DEJUAN-7 AMB Questionnaire DEJUAN-7 Date DEJUAN - 7 assessed: 05/26/24 Source: Developed by Drs. Saw Bean, Jhoana Brewer, John Blanton and colleagues, with an educational lisa from [employer]. Review of Systems Const All systems reviewed & are unremarkable except as noted in HPI and below Card Denies chest pain at rest, Denies chest pain with activity, Denies edema, Denies irregular heart rhythm, Denies claudication, Denies dyspnea, Denies dyspnea on exertion, Denies orthopnea, Denies paroxysmal nocturnal dyspnea and Denies slow heart rate Resp Denies cough, Denies dyspnea and Denies dyspnea on exertion GI Denies abdominal pain, Denies change in bowel habits, Denies excessive flatus, Denies nausea and Denies vomiting Denies urinary incontinence, Denies urinary hesitancy and Denies urinary urgency Musc Denies atrophy, Denies deformity and Denies limited range of motion Skin/Breast Denies bleeding lesions, Denies changing lesions and Denies rash Physical exam (Primary Care) Vital Signs: Last Vital Signs BP 126/70 06/13/24 16:36 BMI result Body Mass Index 27.3 Tobacco/Smoking Status: Tobacco use Status Tobacco use date assessed 05/26/24 06/13/24 16:42 Patient Tobacco Use Status Never used Tobacco 06/13/24 16:42 e-Cigarette/Vaping Use Never Used 06/13/24 16:42 Thrive Assessment: Date of Thrive Assessment Date Thrive assessed 05/26/24 06/13/24 16:42 Neck Neck: Yes normal visual inspection and Yes supple Resp Effort & Inspection: normal respiratory effort Auscultation: clear to auscultation bilaterally Cardio Jugular venous distension: no JVD Rate: regular rate Rhythm: regular rhythm Heart sounds: S1 normal heart sound present and S2 normal heart sound present GI Inspection: Yes normal to inspection Palpation (GI): Soft to palpation and nontender Auscultation: normal bowel sounds Extrem General: Yes full ROM Results AMB Hemoglobin A1c AMB Hemoglobin A1c 6.4 % Last Edit by RIKY Falcon on 06/13/24 17:09 Results Reviewed Results Reviewed: Laboratory Last Values Hgb A1c (Clinic) 6.4 % (4.0-6.0) H 06/13/24 16:35 Coding Level of Care Code Est Pt Level 4 (44504) Complex EM visit Add On G2211 Diagnoses Hypothyroidism, unspecified type E03.9 Hypothyroidism type: unspecified Dyslipidemia E78.5 Type 2 diabetes mellitus with hyperglycemia, without long-term current use of insulin E11.65 Diabetes mellitus type: type 2 Diabetes mellitus assisted insulin use: without assisted use Diabetes mellitus complication status: with hyperglycemia Mild recurrent major depression F33.0 Time Spent (min) 24 Assessment & Plan Assessment & Plan (1) Hypothyroidism: Code(s): E03.9 - Hypothyroidism, unspecified Category: Medical Qualifiers: Hypothyroidism type: unspecified Qualified Code(s): E03.9 - Hypothyroidism, unspecified (2) Dyslipidemia: Code(s): E78.5 - Hyperlipidemia, unspecified Category: Medical (3) Diabetes mellitus: Code(s): E11.9 - Type 2 diabetes mellitus without complications Category: Medical Qualifiers: Diabetes mellitus type: type 2 Diabetes mellitus intermediate teacher insulin use: without intermediate teacher use Diabetes mellitus complication status: with hyperglycemia Qualified Code(s): E11.65 - Type 2 diabetes mellitus with hyperglycemia (4) Mild recurrent major depression: Code(s): F33.0 - Major depressive disorder, recurrent, mild Category: Medical Plan - Arrange for comprehensive lab work to monitor triglycerides and overall metabolic function due to recent pancreatitis. - Engage with the hospital's record department to acquire detailed documentation of the urgent care visit for pancreatitis and any antibiotics prescribed. - Continue current medications for chronic conditions thyroid disorder, anxiety, dyspepsia) and adjust as necessary based on lab results and symptoms. - Monitor blood pressure regularly as currently controlled within normal limits. - Discuss potential lifestyle modifications to support overall health, particularly concerning occasional alcohol consumption and dietary habits. Patient was informed and verbally consented to the use of an ambient scribe for clinic note documentation during this visit. I reviewed with the patient her recent history of pancreatitis and the importance of obtaining the hospital records for accurate diagnoses and treatment history. We discussed the management of her chronic conditions and the necessity of lab work to further investigate the potential causes and health factors contributing to her recent pancreatitis episode. I advised on the importance of adhering to her current medication regimen and the benefits of lifestyle adjustments, such as reducing alcohol intake. The patient was encouraged to engage actively in follow-up visits to monitor her chronic conditions and any new developments diligently. We concluded with a reminder to contact our office with inquiries or concerns and to schedule follow-up lab work as discussed. Orders: Orders Lipid Panel Today E78.5 - Hyperlipidemia, unspecified AMB Hemoglobin A1c Today E11.65 - Type 2 diabetes mellitus with hyperglycemia Microalbumin, Random (w Creat) Today R80.9 - Proteinuria, unspecified Vitamin D 25-OH Total Today E55.9 - Vitamin D deficiency, unspecified Comprehensive [place]. Panel Fast Today E11.65 - Type 2 diabetes mellitus with hyperglycemia Thyroid Stimulating Hormone Today E03.9 - Hypothyroidism, unspecified Complete Blood Count Auto Diff Today M54.5 - Low back pain Medications: Refilled metformin 500 mg PO BID 90 days 180 tabs 3RF blood sugar diagnostic (FreeStyle Lite Strips) Use 1 to test blood sugar once a day 100 ea 8RF E11.65 E11.65 - Type 2 diabetes mellitus with hyperglycemia Patient Instructions: - Request medical records from [facility] concerning recent visits. - Continue taking current medications as prescribed. - Attend a lab appointment for further testing of triglyceride levels and metabolic panel. - Monitor blood pressure at home regularly. - Report any worsening symptoms, especially abdominal pain or significant changes in bowel habits, immediately. - Avoid alcohol consumption to prevent exacerbating pancreatitis symptoms. - Return for a follow-up visit after completion of lab testing to discuss results and any necessary adjustments in treatment.
--- OUTSIDE RECORDS SUMMARY | 2024-06-13 19:37 | XMS_ITS | Clinical Summary ---
Author Organization [facility] Address [address] [place] [address] Phone Care Team Providers Care Emergency Detail Driver Name Role Phone Mariya Gutierrez MD Primary Care Provider [phone] Allergies Active Allergy Reactions Criticality Noted Date [...] EST - 05/20/2024 8:30 PM EST Emergency [facility] Emergency [address] [place] [address] Left upper quadrant abdominal pain [...] and culture (05/20/2024 4:06 PM EST) Specific [place] Urine 1.009 1.003 - 1.030 LAB URINALYSIS [...] MD LAB URINE ORDERABLES Final Resu lt [facility] [address] [place] [address], * Benjamin urine culture tube (05/20/2024 4:06 PM EST) Extra Tube Hold for add-ons. 05/20/2024 6:01 PM [facility] Comment:Auto resulted. Urine Urine specimen obtained by clean catch procedure / Unknown Non-blood Collection / Unknown 05/20/2024 4:06 PM EST 05/20/2024 4:25 PM EST Ishan Wolfe MD LAB URINE ORDERABLES Final Resu lt [facility] [address] [place] [address], [place] [phone] * Culture urine (05/20/2024 4:06 PM EST) Pathologist [facility] Culture, Urine No growth 05/21/2024 7:57 AM [facility] Urine Urine specimen obtained by clean catch procedure / Unknown Non-blood Collection / Unknown 05/20/2024 4:06 PM EST 05/20/2024 4:35 PM EST Ishan Wolfe MD LAB MICROBIOLOGY - GENERAL ORDE RABLES Final Result Performing Organization Address City/[facility]/ZIP Co de Phone Number [facility] [address] [place] [address], [place] [phone] * (ABNORMAL) CBC auto differential (05/20/2024 4:03 PM EST) [facility] WBC 5.6 4.8 - 10.8 K/mcL LAB [...] LAB HEMETOLOGY METHOD 05/20/2024 4:22 PM EST [facility] Lymphocytes Absolute 1.98 1.00 - 5.00 K/mcL LAB HEMETOLOGY METHOD 05/20/2024 4:22 PM EST [facility] Monocytes Absolute 0.48 0.20 - 1.00 K/[facility] LAB HEMETOLOGY METHOD 05/20/2024 4:22 PM EST [facility] Eosinophils Absolute 0.13 0.00 - 0.50 K/[facility] HEMETOLOGY METHOD 05/20/2024 4:22 PM EST [facility] Basophils Absolute 0.03 0.00 - 0.20 K/[facility] HEMETOLOGY METHOD 05/20/2024 4:22 PM [facility] Immature Granulocytes Absolute 0.01 0.00 - 0.03 K/[facility] LAB HEMETOLOGY METHOD 05/20/2024 4:22 PM [facility] Blood Venous blood specimen / Unknown Venipuncture / Unknown 05/20/2024 4:03 PM EST 05/20/2024 4:11 PM EST us Ishan Wolfe MD LAB BLOOD ORDERABLES Final Resu lt [facility] [address] [place] [address], * (ABNORMAL) Comprehensive metabolic panel (05/20/2024 4:03 PM EST) Sodium 136 133 - 145 mmol/L LAB CHEMISTRY METHOD 05/20/2024 4:44 PM EST [facility] Potassium 4.0 3.5 - 5.5 mmol/L LAB CHEMISTRY METHOD 05/20/2024 4:44 PM [facility] Chloride 105 96 - 110 mmol/L LAB CHEMISTRY METHOD 05/20/2024 4:44 PM EST [facility] CO2 26 21 - 32 [...] 17.0 LAB CHEMISTRY METHOD 05/20/2024 4:44 PM [facility] Calcium 8.9 8.5 - [...] LAB CHEMISTRY METHOD 05/20/2024 4:[address] [facility] Blood Venous blood specimen / Unknown Venipuncture / Unknown 05/20/2024 4:03 PM EST 05/20/2024 4:11 PM EST us Ishan Wolfe MD LAB BLOOD ORDERABLES Final Resu lt [facility] [address] [place] [address], [place] [phone] from Last 3 Months Insurance MEDICAID - [place] [facility] PLAN Care Teams Emergency Detail Driver Relationship Specialty Start Date End Date Mariya Gutierrez MD [address] [facility] Primary Care (111) SUNG Liu PCP - General 04/22/11
--- OUTSIDE RECORDS SUMMARY | 2024-06-13 19:37 | XMS_ITS | Encounter Summary ---
Author Organization [employer] Address [address] [place] [address] Care Team Providers Care Supervisor/Port Director Name Role Phone Mariya Gutierrez MD Primary Care Provider + [phone] Reason for Visit * Reason Comments Flank Pain Encounter Details Date Type Department Care Team (Late st Contact Info) Description 05/20/2024 4:37 PM EST - 05/20/2024 8:30 PM EST Emergency [facility] Emergency [address] [place] [address] Left upper quadrant abdominal pain [...] Means Destination Comment s Home or Self Retirement Pt stated understanding of discharge instructions via [...] REFLEX MICROSCOPIC AND CULTURE - Abnormal Specific Harper Urine 1.009 pH, Urine 6.0 Leukocytes, Urine [...] Procedure Abnormality Status --------- ------ CBC auto differential[[id number]] Abnormal Final result Please view results for these tests on the individual orders. URINALYSIS WITH REFLEX MICROSCOPIC AND CULTURE Narrative: The following orders were created for panel order Urinalysis with reflex microscopic and culture. Procedure Abnormality Status --------- ------ Urinalysis with reflex m...[[id number]] Abnormal Final result Benjamin urine culture tube[[id number]] Final result Please view results for these [...] Vital signs are stable. Interviewed with an jewelry department supervisor. Labs and CT are unremarkable. Patient discharged [...] BHARATH Pringle 05/20/241954 BHARATH Pringle 05/20/242001 BHARATH rPingle 05/20/242010 Cosigned by Steve Suarez DO at [...] Urine No growth 05/21/2024 7:57 AM EST [facility] Urine Urine specimen obtained by clean catch procedure / Unknown Non-blood Collection / Unknown 05/20/2024 4:06 PM EST 05/20/2024 4:35 PM EST Ishan Wolfe MD LAB MICROBIOLOGY - GENERAL ORDE RABLES Final Result Performing Organization Address [facility]/ZIP Co de Phone Number [facility] [address] [place] [address], [place] [phone] * Benjamin urine culture tube (05/20/2024 4:06 PM EST) Pathologist [facility] Extra Tube Hold for add-ons. 05/20/2024 6:01 PM [facility] Comment:Auto resulted. Urine Urine specimen obtained by clean catch procedure / Unknown Non-blood Collection / Unknown 05/20/2024 4:06 PM EST 05/20/2024 4:25 PM EST Ishan Wolfe MD LAB URINE ORDERABLES Final Resu lt Performing Organization Address [facility]/ZIP Co de Phone Number [facility] [address] [place] [address], [place] [phone] * (ABNORMAL) Urinalysis with reflex microscopic and culture (05/20/2024 4:06 PM EST) [facility] Specific Harper Urine 1.009 1.003 - 1.030 LAB URINALYSIS - AUTOMATED METHOD 05/20/2024 4:35 PM [facility] pH, Urine 6.0 5.0 - 8.0 pH LAB URINALYSIS - AUTOMATED METHOD 05/20/2024 4:35 PM [facility] Leukocytes, Urine Trace(A) Negative LAB URINALYSIS - AUTOMATED METHOD 05/20/2024 4:35 PM [facility] Nitrite, Urine Negative Negative LAB URINALYSIS - AUTOMATED METHOD 05/20/2024 4:35 PM [facility] Protein, Urine Negative <=Trace mg/dL LAB URINALYSIS - AUTOMATED METHOD 05/20/2024 4:35 PM [facility] Glucose, Urine Negative Negative mg/dL LAB URINALYSIS - AUTOMATED METHOD 05/20/2024 4:35 PM [facility] Ketones, Urine Negative Negative mg/dL LAB URINALYSIS - AUTOMATED METHOD 05/20/2024 4:35 PM [facility] Urobilinogen, Urine 0.2 0.2 - 1.0 mg/dL LAB URINALYSIS - AUTOMATED METHOD 05/20/2024 4:35 PM [facility] Bilirubin, Urine Negative Negative LAB URINALYSIS - AUTOMATED METHOD 05/20/2024 4:35 PM [facility] Blood, Urine Negative Negative LAB URINALYSIS - AUTOMATED METHOD 05/20/2024 4:35 PM [facility] RBC, Urine 2.0 0 - 4 /HPF LAB URINALYSIS - AUTOMATED METHOD 05/20/2024 4:35 PM [facility] WBC, Urine 1.6 0 - 4 /HPF LAB URINALYSIS - AUTOMATED METHOD 05/20/2024 4:35 PM [facility] Squamous Epithelial, Urine 19 0 - 60 /LPF LAB URINALYSIS - AUTOMATED METHOD 05/20/2024 4:35 PM [facility] Bacteria, Urine Negative Negative /HPF LAB URINALYSIS - AUTOMATED METHOD 05/20/2024 4:35 PM [facility] Hyaline Casts, Urine 0.0 0 - 3 /LPF LAB URINALYSIS - AUTOMATED METHOD 05/20/2024 4:35 PM [facility] Urine Urine specimen obtained by clean catch procedure / Unknown Non-blood Collection / Unknown 05/20/2024 4:06 PM EST 05/20/2024 4:25 PM EST us Ishan Wolfe MD LAB URINE ORDERABLES Final Resu lt [facility] [address] [place] [address], * (ABNORMAL) CBC auto differential (05/20/2024 4:03 PM EST) [facility] WBC 5.6 4.8 - 10.8 K/mcL LAB HEMETOLOGY METHOD 05/20/2024 4:22 PM [facility] RBC 4.30 3.80 - 4.80 M/mcL LAB HEMETOLOGY METHOD 05/20/2024 4:22 PM [facility] Hemoglobin 12.6 11.5 - 16.0 g/dL LAB HEMETOLOGY METHOD 05/20/2024 4:22 PM [facility] Hematocrit 39.6 35.0 - 47.0 % LAB HEMETOLOGY METHOD 05/20/2024 4:22 PM [facility] MCV 93.0 79.0 - 98.0 FL LAB HEMETOLOGY METHOD 05/20/2024 4:22 PM [facility] MCH 29.6 27.0 - 32.0 pcg LAB HEMETOLOGY METHOD 05/20/2024 4:22 PM [facility] MCHC 31.8(L) 32.0 - 37.0 g/dL LAB HEMETOLOGY METHOD 05/20/2024 4:22 PM [facility] RDW 12.5 11.0 - 15.0 % LAB HEMETOLOGY METHOD 05/20/2024 4:22 PM [facility] Platelets 239 130 - 400 K/mcL LAB HEMETOLOGY METHOD 05/20/2024 4:22 PM [facility] MPV 10.4 7.0 - 11.0 FL LAB HEMETOLOGY METHOD 05/20/2024 4:22 PM [facility] NRBC 0.0 <1.0 % LAB HEMETOLOGY METHOD 05/20/2024 4:22 PM [facility] NRBC Absolute 0.00 <0.10 K/mcL LAB HEMETOLOGY METHOD 05/20/2024 4:22 PM [facility] Neutrophils Relative 52.7 % LAB HEMETOLOGY METHOD 05/20/2024 4:22 PM [facility] Lymphocytes Relative 35.7 % LAB HEMETOLOGY METHOD 05/20/2024 4:22 PM [facility] Monocytes Relative 8.6 % LAB HEMETOLOGY METHOD 05/20/2024 4:22 PM [facility] Eosinophils Relative 2.3 % LAB HEMETOLOGY METHOD 05/20/2024 4:22 PM [facility] Basophils Relative 0.5 % LAB HEMETOLOGY METHOD 05/20/2024 4:22 PM [facility] Immature Granulocytes Relative 0.2 % LAB HEMETOLOGY METHOD 05/20/2024 4:22 PM [facility] Neutrophils Absolute 2.92 1.50 - 7.00 K/mcL LAB HEMETOLOGY METHOD 05/20/2024 4:22 PM [facility] Lymphocytes Absolute 1.98 1.00 - 5.00 K/mcL LAB HEMETOLOGY METHOD 05/20/2024 4:22 PM [facility] Monocytes Absolute 0.48 0.20 - 1.00 K/mcL LAB HEMETOLOGY METHOD 05/20/2024 4:22 PM [facility] Eosinophils Absolute 0.13 0.00 - 0.50 K/mcL LAB HEMETOLOGY METHOD 05/20/2024 4:22 PM [facility] Basophils Absolute 0.03 0.00 - 0.20 K/mcL LAB HEMETOLOGY METHOD 05/20/2024 4:22 PM [facility] Immature Granulocytes Absolute 0.01 0.00 - 0.03 K/mcL LAB HEMETOLOGY METHOD 05/20/2024 4:22 PM [facility] Blood Venous blood specimen / Unknown Venipuncture / Unknown 05/20/2024 4:03 PM EST 05/20/2024 4:11 PM EST us Ishan Wolfe MD LAB BLOOD ORDERABLES Final Resu lt [facility] [address] [place] [address], * (ABNORMAL) Comprehensive metabolic panel (05/20/2024 4:03 PM EST) Sodium 136 133 - 145 mmol/L LAB CHEMISTRY METHOD 05/20/2024 4:44 PM [facility] Potassium 4.0 3.5 - 5.5 mmol/L LAB CHEMISTRY METHOD 05/20/2024 4:44 PM [facility] Chloride 105 96 - 110 mmol/L LAB CHEMISTRY METHOD 05/20/2024 4:44 PM [facility] CO2 26 21 - 32 mmol/L LAB CHEMISTRY METHOD 05/20/2024 4:44 PM [facility] Anion Gap 5 3 - 11 LAB CHEMISTRY METHOD 05/20/2024 4:44 PM [facility] Glucose 102(H) 70 - 100 mg/dL LAB CHEMISTRY METHOD 05/20/2024 4:44 PM [facility] BUN 15 5 - 25 mg/dL LAB CHEMISTRY METHOD 05/20/2024 4:44 PM [facility] Creatinine 0.88 0.50 - 1.10 mg/dL LAB CHEMISTRY METHOD 05/20/2024 4:44 PM [facility] eGFR 75 >=60 mL/min/1. 73m2 LAB CHEMISTRY METHOD 05/20/2024 4:44 PM [facility] Comment:Calculation based on the??Chronic Kidney Disease Epidemiology Collaboration (CKD-EPI) equation refit??without adjustment for race. BUN/Creatinine Ratio 17.0 LAB CHEMISTRY METHOD 05/20/2024 4:44 PM EST [facility] Calcium 8.9 8.5 - 10.5 mg/dL LAB CHEMISTRY METHOD 05/20/2024 4:44 PM [facility] AST (SGOT) 17 10 - 42 unit/L LAB CHEMISTRY METHOD 05/20/2024 4:44 PM [facility] ALT (SGPT) 24 10 - 60 unit/L LAB CHEMISTRY METHOD 05/20/2024 4:44 PM [facility] Alkaline Phosphatase 77 42 - 121 unit/L LAB CHEMISTRY METHOD 05/20/2024 4:44 PM [facility] Total Protein 7.1 6.0 - 8.0 g/dL LAB CHEMISTRY METHOD 05/20/2024 4:44 PM [facility] Albumin 3.5 3.2 - 5.0 g/dL LAB CHEMISTRY METHOD 05/20/2024 4:44 PM [facility] Total Bilirubin 0.3 0.0 - 1.4 mg/dL LAB CHEMISTRY METHOD 05/20/2024 4:44 PM [facility] Blood Venous blood specimen / Unknown Venipuncture / Unknown 05/20/2024 4:03 PM EST 05/20/2024 4:11 PM EST us Ishan Wolfe MD LAB BLOOD ORDERABLES Final Resu lt [facility] [address] [place] [address], [place] [phone] documented in this encounter Visit Diagnoses Diagnosis [...] Ospina) documented in this encounter Care Teams Supervisor/Port Director Relationship Specialty Start Date End Date Mariya Gutierrez MD [address] [facility] Primary Care (111) SUNG Liu PCP - General 04/22/11 documented as of this encounter
== END 2024-06-13 17:22 | disposition home or self-care (01) ==
PROVIDERS: PCP Internal Medicine; Visit Provider Internal Medicine
DX: E03.9 Hypothyroidism, unspecified (principal); E78.5 Hyperlipidemia, unspecified; E11.65 Type 2 diabetes mellitus with hyperglycemia; F33.0 Major depressive disorder, recurrent, mild

== ENCOUNTER → 2024-06-13 16:04 | Outpatient (BNVA) | payer OTHER, SELFPAY | PROVIDERS: PCP Internal Medicine; Visit Provider Internal Medicine | DX: E03.9 Hypothyroidism, unspecified (principal); E78.5 Hyperlipidemia, unspecified; E11.65 Type 2 diabetes mellitus with hyperglycemia; F33.0 Major depressive disorder, recurrent, mild | CPT/HCPCS: 83036; 99212 ==

== ENCOUNTER 2024-06-22 09:28 | Outpatient (REF) | payer OTHER, SELFPAY ==
[2024-06-22 09:46] LABS: MANUAL DIFF FLAG NO
[2024-06-22 10:19] LABS: Basophils Percent Auto 0.6 % (0-2); Eosinophils Absolute Auto 0.3 X10*3/uL (0.0-0.4); Eosinophils Percent Auto 6.3 % (0-4); Hematocrit 36.4 % (37.0-47.0); Imm Gran Abs Auto 0.02 X10*3/uL (0.00-0.03); Imm Gran Pct Auto 0.4 % (0.0-0.4); Lymphocytes Percent Auto 41.3 % (20-40); Mean Corpuscular Hemoglobin 30.5 pg (27.0-33.0); Mean Corpuscular Volume 92.6 fL (80.0-98.0); Mean Platelet Volume 10.6 fL (9.4-12.3); Monocytes Absolute Auto 0.4 X10*3/uL (0.1-1.2); Monocytes Percent Auto 7.8 % (2-11); Neutrophils Absolute Auto 2.1 x10*3/uL (2.0-8.3); Neutrophils Percent Auto 43.6 % (45-73); Platelet Count 222 X10*3/uL (160-400); Red Blood Count 3.93 X10*6/uL (4.20-5.50); White Blood Count 4.8 X10*3/uL (4.8-10.8)
--- OUTSIDE RECORDS SUMMARY | 2024-06-22 10:45 | XMS_ITS | Clinical Summary ---
Author Organization [facility] Address [address] [place] [address] Phone Care Team Providers Care Geospatial Information Scientist Name Role Phone Mariya Gutierrez MD Primary Care Provider [phone] Allergies Active Allergy Reactions Criticality Noted Date [...] EST - 05/20/2024 8:30 PM EST Emergency [facility] Emergency [address] [place] [address] Left upper quadrant abdominal [...] and culture (05/20/2024 4:06 PM EST) Specific Tillar Urine 1.009 1.003 - 1.030 LAB URINALYSIS [...] MD LAB URINE ORDERABLES Final Resu lt [facility] [address] [place] [address], * Benjamin urine culture tube (05/20/2024 4:06 PM EST) Extra Tube Hold for add-ons. 05/20/2024 6:01 PM [facility] Comment:Auto resulted. Urine Urine specimen obtained by clean catch procedure / Unknown Non-blood Collection / Unknown 05/20/2024 4:06 PM EST 05/20/2024 4:25 PM EST Ishan Wolfe MD LAB URINE ORDERABLES Final Resu lt [facility] [address] [place] [address], [place] [phone] * Culture urine (05/20/2024 4:06 PM EST) Pathologist [facility] Culture, Urine No growth 05/21/2024 7:57 AM [facility] Urine Urine specimen obtained by clean catch procedure / Unknown Non-blood Collection / Unknown 05/20/2024 4:06 PM EST 05/20/2024 4:35 PM EST Ishan Wolfe MD LAB MICROBIOLOGY - GENERAL ORDE RABLES Final Result Performing Organization Address City/[facility]/ZIP Co de Phone Number [facility] [address] [place] [address], [place] [phone] * (ABNORMAL) CBC auto differential (05/20/2024 4:03 PM EST) [facility] WBC 5.6 4.8 - 10.8 [...] LAB HEMETOLOGY METHOD 05/20/2024 4:22 PM EST [facility] Lymphocytes Absolute 1.98 1.00 - 5.00 K/mcL LAB HEMETOLOGY METHOD 05/20/2024 4:22 PM EST [facility] Monocytes Absolute 0.48 0.20 - 1.00 K/[facility] LAB HEMETOLOGY METHOD 05/20/2024 4:22 PM EST [facility] Eosinophils Absolute 0.13 0.00 - 0.50 K/[facility] LAB HEMETOLOGY METHOD 05/20/2024 4:22 PM EST [facility] Basophils Absolute 0.03 0.00 - 0.20 [facility] LAB HEMETOLOGY METHOD 05/20/2024 4:22 PM [facility] Immature Granulocytes Absolute 0.01 0.00 - 0.03 K/[facility] LAB HEMETOLOGY METHOD 05/20/2024 4:22 PM [facility] Blood Venous blood specimen / Unknown Venipuncture / Unknown 05/20/2024 4:03 PM EST 05/20/2024 4:11 PM EST us Ishan Wolfe MD LAB BLOOD ORDERABLES Final Resu lt [facility] [address] [place] [address], * (ABNORMAL) Comprehensive metabolic panel (05/20/2024 4:03 PM EST) Sodium 136 133 - 145 mmol/L LAB CHEMISTRY METHOD 05/20/2024 4:44 PM EST [facility] Potassium 4.0 3.5 - 5.5 mmol/L LAB CHEMISTRY METHOD 05/20/2024 4:44 PM [facility] Chloride 105 96 - 110 mmol/L LAB CHEMISTRY METHOD 05/20/2024 4:44 PM EST [facility] CO2 26 21 - 32 [...] LAB CHEMISTRY METHOD 05/20/2024 4:44 PM EST [facility] Blood Venous blood specimen / Unknown Venipuncture / Unknown 05/20/2024 4:03 PM EST 05/20/2024 4:11 PM EST us Ishan Wolfe MD LAB BLOOD ORDERABLES Final Resu lt [facility] [address] [place] [address], [place] [phone] from Last 3 Months Insurance MEDICAID - [place] [facility] PL[facility] Care Teams Geospatial Information Scientist Relationship Specialty Start Date End Date Mariya Gutierrez MD [address] [facility] Primary Care (111) SUNG Liu PCP - General 04/22/11
[2024-06-22 11:15] LABS: Creatinine Urine 58.29 mg/dL; Microalbumin Urine < 5.0 mg/L
[2024-06-22 11:39] LABS: Alanine Aminotransferase 17 U/L (0-31); Albumin Level 3.8 g/dL (3.5-5.0); Alkaline Phosphatase 61 U/L (39-117); Anion Gap 10 (12-20); Aspartate Amino Transferase 23 U/L (5-31); Bilirubin Total 0.5 mg/dL (0.0-1.0); Blood Urea Nitrogen 15 mg/dL (9-16); Calcium 9.1 mg/dL (8.4-10.2); Carbon Dioxide 27 mmol/L (22-29); Chloride 108 mmol/L (96-108); Cholesterol 191 mg/dL (<200); Estimated Glomerular Filt Rate > 60; Glucose Fasting 98 mg/dL (60-99); HDL Cholesterol 61 mg/dL (>40); LDL Cholesterol Calculated 112 mg/dL (<100); Potassium 4.1 mmol/L (3.3-5.1); Sodium 141 mmol/L (135-145); Thyroid Stimulating Hormone 3.35 uIU/mL (0.32-4.0); Total Protein 7.4 g/dL (6.5-8.0); Triglycerides 92 mg/dL (<150); Vitamin D 25-OH Total 35.2 ng/mL (>30)
[2024-06-23 08:49] LABS: CA-125 8 U/mL (<35); Carbohydrate Antigen 19-9 <3 U/mL (<34)
[2024-06-26 09:39] LABS: TS Negative Control Passed; TS Panel A 0; TS Panel B 0; TS Positive Control Passed; TSpotTB Negative (Negative)
== END 2024-06-22 09:29 | disposition home or self-care (01) ==
LOC: HO.LAB 09:28
PROVIDERS: PCP Internal Medicine; Referring Provider Advanced Practice Midwife; Visit Provider Internal Medicine
DX: N83.209 Unspecified ovarian cyst, unspecified side (principal); E03.9 Hypothyroidism, unspecified; E11.65 Type 2 diabetes mellitus with hyperglycemia; R80.9 Proteinuria, unspecified; M54.50 Low back pain, unspecified; E55.9 Vitamin D deficiency, unspecified; E78.5 Hyperlipidemia, unspecified; Z11.1 Encounter for screening for respiratory tuberculosis
CPT/HCPCS: 36415; 80053; 80061; 82043; 82306; 82378; 82570; 84443; 85025; 86301; 86304; 86481; 99212

== ENCOUNTER 2024-06-22 09:52 | Outpatient (AMB) | payer OTHER, SELFPAY ==
--- NOTE | 2024-06-22 09:53 | A.OFFVIS_ITS ---
Intake Visit Reasons: Ultrasound follow up Mechanic General Operational Test Required: Yes Mechanic General Operational Test Language: Transmission Repairer Services: Mechanic General Operational Test Present Mechanic General Operational Test Name: Aline Patch Setter: Patch Setter Present Allergies morphine [MORPHINE] Allergy (Intermediate, Verified 06/22/24 09:54) TACHYCARDIA, palpitations Penicillins Allergy (Intermediate, Verified 06/22/24 09:54) RASH Sulfa (Sulfonamide Antibiotics) Allergy (Intermediate, Verified 06/22/24 09:54) rash Is last menstrual period known: Yes HPI Comments Details: Patient is here today for follow up pelvic ultrasound, history of left ovarian cyst, experiencing left sided pelvic pain. [facility] Medical History Upper abdominal pain Ovarian cyst History of uterine cancer Tubular adenoma Physical exam GERD (gastroesophageal reflux disease) Mild recurrent major depression High cholesterol Lower back pain Anxiety Hypothyroidism Dyslipidemia Diabetes mellitus Surgical History History of toe surgery H/O: Lipoma Status post breast reduction History of laparoscopic cholecystectomy History of total abdominal hysterectomy Family History Father Hypertension Diabetes Mother Hypertension Diabetes Stroke Cancer Paternal Grandmother Cancer Family/Other Mental health disorder Social History Housing: Apartment Alcohol intake: current Alcohol intake frequency: holidays/special occasions only Alcohol type: hard liquor Patient Tobacco Use Status: Never used Tobacco e-Cigarette/Vaping Use: Never Used Second Hand Smoke Exposure: No service: No Current occupational status: disabled Cognitive needs: No Hearing needs: No Vision needs: Yes Review of Systems Const All systems reviewed & are unremarkable except as noted in HPI and below Endo Reports no additional complaints Physical Exam Const General: cooperative, healthy appearing and no acute distress Psych Appearance: well kempt Attitude: cooperative Thought process: Normal thought process present Results Reviewed Results Reviewed: [address] [address] Ultrasound Report Signed Patient: Mariela Salguero MR#: [id number] : 1965 Acct:[id number] Age/Sex: 59 / F ADM Date: 06/08/24 Loc: HO.US Attending Dr: Anali Alvarenga CNM Ordering Physician: Anali Alvarenga CNM Date of Service: 06/08/24 Procedure(s): US pelvic and transvaginal Accession Number(s): [id number] cc: Anali Alvarenga CNM; Suzie To MD~ EXAMINATION: US PELVIS CLINICAL INFORMATION: Unspecified ovarian cyst. COMPARISON: 06/23/2023. MRI pelvis 09/15/2023. 08/05/2017 CT exam. TECHNIQUE: Ultrasound of the pelvis is performed using both transabdominal and transvaginal transducers along with Doppler. Transvaginal imaging is performed due to inadequate visualization transabdominally. FINDINGS: Uterus: The uterus is surgically absent. Adnexa: Both ovaries are visualized. There is normal color flow to the adnexa. There is no ovarian torsion. There is no pelvic ascites or fluid collection. Right ovary measures 2.5 x 1.5 x 1.6 cm. Volume = 3.2 mL. Left ovary is not well seen. There is a mildly elongated left ovarian cystic structure measuring 3.2 x 1.5 x 1.5 cm, most likely arising from and replacing the left ovarian stroma. On prior MRI this measured 1.8 x 1.3 x 2.7 cm. On prior ultrasound this measured 1.7 x 1.5 x 1.6 cm, and prior to that on CT exam 08/05/2017 measured 1.8 x 1.5 x 2.0 cm. US/US pelvic and transvaginal IMPRESSION: 1. Uterus is surgically absent. No free pelvic fluid. 2. Normal right ovary. 3. Slightly enlarging simple appearing left ovarian cyst. This is consistent with a benign entity. Electronically signed by: Miguel Willoughby MD 06/08/2024 02:51 PM [facility] Dictated By: Miguel Willoughby MD Signed By: <Electronically signed by Miguel Willoughby MD in OV> 06/08/24 1451 DD/ 1414 TD/TT: 06/08/24 1426 Transportation Maintenance Worker: Assessment & Plan Assessment & Plan (1) Ovarian cyst: Code(s): N83.209 - Unspecified ovarian cyst, unspecified side Category: Medical Qualifiers: Laterality: left Qualified Code(s): N83.202 - Unspecified ovarian cyst, left side Plan Discussed: Ultrasound findings- Enlarging ovarian cyst. Plan tumor markers blood work today, referral to Gyne Onc., for further evaluation. The patient expressed understanding and agreement with the plan of care. All of her questions and concerns were addressed to the best of my ability. This note is constructed using voice recognition software. While every effort has been made to ensure accuracy, commercial maintenance technician errors may have been included. Orders: Orders CA-125 Today N83.202 - Unspecified ovarian cyst, left side, N83.299 - Other ovarian cyst, unspecified side Carbohydrate Antigen 19-9 Today N83.202 - Unspecified ovarian cyst, left side Carcinoembryonic Antigen Today N83.202 - Unspecified ovarian cyst, left side Referrals Gynecologic Oncology Referral N83.202 - Unspecified ovarian cyst, left side Coding Level of Care Code Est Pt Level 3 (55366) Diagnoses Cyst of left ovary N83.202 Laterality: left
--- OUTSIDE RECORDS SUMMARY | 2024-06-22 11:23 | XMS_ITS | Clinical Summary ---
Author Organization [facility] Address [address] [place] [address] Phone Care Team Providers Care Locksmith Helper Name Role Phone Mariya Gutierrez MD Primary Care Provider [phone] Allergies Active Allergy Reactions Criticality Noted Date [...] EST - 05/20/2024 8:30 PM EST Emergency [facility] Emergency [address] [place] [address] Left upper quadrant abdominal pain [...] and culture (05/20/2024 4:06 PM EST) Specific Bee Urine 1.009 1.003 - 1.030 LAB URINALYSIS [...] Resu lt [facility] [address] [place] [address], * Benjamin urine culture tube (05/20/2024 4:06 PM EST) Extra Tube Hold for add-ons. 05/20/2024 6:01 PM [facility] Comment:Auto resulted. Urine Urine specimen obtained by clean catch procedure / Unknown Non-blood Collection / Unknown 05/20/2024 4:06 PM EST 05/20/2024 4:25 PM EST Ishan Wolfe MD LAB URINE ORDERABLES Final Resu lt [facility] [address] [place] [address], [place] [phone] * Culture urine (05/20/2024 4:06 PM EST) Pathologist [facility] Culture, Urine No growth 05/21/2024 7:57 AM [facility] Urine Urine specimen obtained by clean catch procedure / Unknown Non-blood Collection / Unknown 05/20/2024 4:06 PM EST 05/20/2024 4:35 PM EST Ishan Wolfe MD LAB MICROBIOLOGY - GENERAL ORDE RABLES Final Result Performing Organization Address City/[facility]/ZIP Co de Phone Number [facility] [address] [place] [address], [place] [phone] * (ABNORMAL) CBC auto differential (05/20/2024 4:03 PM EST) [facility] WBC 5.6 4.8 - 10.8 K/mcL [...] LAB Monocytes Absolute 0.48 0.20 - 1.00 K/[facility] LAB HEMETOLOGY METHOD 05/20/2024 4:22 PM EST [facility] Eosinophils Absolute 0.13 0.00 - 0.50 K/[facility] LAB HEMETOLOGY METHOD 05/20/2024 4:22 PM EST [facility] Basophils Absolute 0.03 0.00 - 0.20 K/[facility] LAB HEMETOLOGY METHOD 05/20/2024 4:22 PM [facility] Immature Granulocytes Absolute 0.01 0.00 - 0.03 K/[facility] LAB HEMETOLOGY METHOD 05/20/2024 4:22 PM [facility] Blood Venous blood specimen / Unknown Venipuncture / Unknown 05/20/2024 4:03 PM EST 05/20/2024 4:11 PM EST us Ishan Wolfe MD LAB BLOOD ORDERABLES Final Resu lt [facility] [address] [place] [address], * (ABNORMAL) Comprehensive metabolic panel (05/20/2024 4:03 [...] LAB CHEMISTRY METHOD 05/20/2024 4:44 PM EST [facility] Blood Venous blood specimen / Unknown Venipuncture / Unknown 05/20/2024 4:03 PM EST 05/20/2024 4:11 PM EST us Ishan Wolfe MD LAB BLOOD ORDERABLES Final Resu lt [facility] ([facility]) [facility] [address] [place] [address], [place] [phone] from Last 3 Months Insurance MEDICAID - [place] [facility] Care Teams Locksmith Helper Relationship Specialty Start Date End Date Mariya Gutierrez MD [address] [facility] Primary Care (111) SUNG Liu PCP - General 04/22/11
== END 2024-06-22 12:28 | disposition home or self-care (01) ==
LOC: HO.HWS 09:52
PROVIDERS: PCP Internal Medicine; Visit Provider Advanced Practice Midwife
DX: N83.202 Unspecified ovarian cyst, left side (principal)
CPT/HCPCS: 99213

== ENCOUNTER 2024-08-22 09:20 | Emergency (ER) | payer OTHER, SELFPAY ==
--- NOTE | 2024-08-22 | ECG_ITS ---
Test Reason : CP Blood Pressure : */* mmHG Vent. Rate : 66 BPM Atrial Rate : 66 BPM P-R Int : 170 ms QRS Dur : 82 ms QT Int : 364 ms P-R-T Axes : 13 2 3 degrees QTcB Int : 381 ms Normal sinus rhythm Normal ECG When compared with ECG of 10-Feb-2024 11:03, Inverted T waves have replaced nonspecific T wave abnormality in Inferior leads Nonspecific T wave abnormality now evident in Anterior leads Referred By: Generic ED Physician Electronically Signed By: MAJOR HERNANDES
[2024-08-22 09:35] VITALS: BP 131/60; PULSE 69; RESP 20; TEMP 37; O2SAT 100; BMI 38.4
[2024-08-22 09:52] LABS: Basophils Percent Auto 0.4 % (0-2); Eosinophils Absolute Auto 0.2 X10*3/uL (0.0-0.4); Eosinophils Percent Auto 3.7 % (0-4); Hematocrit 36.8 % (37.0-47.0); Hemoglobin 12.1 g/dl (12.0-16.0); Imm Gran Abs Auto 0.01 X10*3/uL (0.00-0.03); Imm Gran Pct Auto 0.2 % (0.0-0.4); Lymphocytes Absolute Auto 2.1 X10*3/uL (1.2-4.9); Lymphocytes Percent Auto 36.3 % (20-40); MANUAL DIFF FLAG NO; Mean Corpuscular HGB Conc 32.9 g/dl (31.0-35.0); Mean Corpuscular Hemoglobin 30.3 pg (27.0-33.0); Mean Platelet Volume 10.4 fL (9.4-12.3); Monocytes Absolute Auto 0.5 X10*3/uL (0.1-1.2); Monocytes Percent Auto 7.9 % (2-11); Neutrophils Absolute Auto 2.9 x10*3/uL (2.0-8.3); Neutrophils Percent Auto 51.5 % (45-73); Platelet Count 235 X10*3/uL (160-400); Red Cell Distribution Width 12.7 % (11.0-16.0); White Blood Count 5.7 X10*3/uL (4.8-10.8)
[2024-08-22 10:16] LABS: Alanine Aminotransferase 27 U/L (0-31); Albumin Level 3.9 g/dL (3.5-5.0); Alkaline Phosphatase 68 U/L (39-117); Anion Gap 9 (12-20); Aspartate Amino Transferase 23 U/L (5-31); Bilirubin Total 0.7 mg/dL (0.0-1.0); Blood Urea Nitrogen 14 mg/dL (9-16); Calcium 9.2 mg/dL (8.4-10.2); Carbon Dioxide 26 mmol/L (22-29); Chloride 110 mmol/L (96-108); Creatinine Clr Calc Pharmacy 50.8; Estimated Glomerular Filt Rate > 60; Glucose Random 80 mg/dL (60-115); Lipase 39 U/L (8-78); Potassium 4.1 mmol/L (3.3-5.1); Sodium 141 mmol/L (135-145); Total Protein 7.1 g/dL (6.5-8.0)
[2024-08-22 10:34] LABS: Influenza A PCR NEGATIVE (Negative); Influenza B PCR NEGATIVE (Negative); Resp Syncy Virus RNA Qual PCR NEGATIVE (Negative); SARS COV2 PCR INHOUSE NEGATIVE (Negative)
--- OUTSIDE RECORDS SUMMARY | 2024-08-22 12:35 | XMS_ITS | Clinical Summary ---
Author Organization [facility] Address [address] [place] [address] Phone Care Team Providers Care Electronics Technician Apprentice Name Role Phone Mariya Gutierrez MD Primary Care Provider Allergies Active Allergy Reactions Criticality Noted Date Comments Morphine 05/20/2024 Penicillins 05/20/2024 Medications No known medications Social History Tobacco Use Types Packs/Day Years [...] 12/09/2013, 01/13/2010, Additional history exists COVID-19 Vaccine (3 - 2023- season) 2023 09/24/2020, 09/03/2020 RSV Immunization Adult Patients (1 - 1-dose 75+ series) 02/10/2039 Influenza [...] age to complete this topic Meningococcal B Vaccine Aged Out No l onger eligible based on patient's age to complete [...] on patient's age to complete this topic Insurance [facility] Care Teams Electronics Technician Apprentice Relationship Specialty Start Date End Date Mariya Gutierrez MD [address] [facility] Primary Care (111) SUNG Liu PCP - General 04/22/11
--- NOTE | 2024-08-22 12:39 | ED_ITS ---
HPI - General Adult General Chief complaint: General Medical Stated complaint: Dizziness 3 days, chest pain, abd pain Time Seen by Provider: 08/22/24 12:39 History of Present Illness ED Provider: Zaid Bradshaw MD Related Data Home Medications ?Medication ?Instructions ?Recorded ?Confirmed blood sugar diagnostic #10 ea 01/17/20 06/13/24 prazosin 1 mg capsule 1 mg PO BEDTIME PRN nightmares 01/17/20 06/13/24 buspirone 5 mg tablet 5 mg PO BID anxiety 12/16/21 06/13/24 Previous Rx's ?Medication ?Instructions ?Recorded cyclobenzaprine 10 mg tablet 10 mg PO BEDTIME 30 days #30 tabs 06/17/20 meloxicam 15 mg tablet 15 mg PO DAILY 30 days #30 tabs 06/17/20 lancets 28 gauge #100 ea 02/19/23 sucralfate 100 mg/mL oral 1 g (10 mL) PO QIDACHS 4 weeks 05/06/23 suspension #420 mL bismuth subsalicylate 262 mg 2 tab PO QID 14 days #112 tabs 05/31/23 chewable tablet (Bismuth) omeprazole 20 mg capsule,delayed 20 mg PO BID 14 days #28 caps 05/31/23 release loperamide 2 mg capsule (Imodium 2 mg PO Q6H PRN loose stool #30 06/17/23 A-D) caps levothyroxine 75 mcg tablet 75 mcg PO DAILY 90 days #90 tabs 03/19/24 blood sugar diagnostic (FreeStyle #100 ea 06/13/24 Lite Strips) atorvastatin 40 mg tablet 40 mg PO BEDTIME 90 days #90 tabs 06/29/24 metformin 500 mg tablet 500 mg PO BID 90 days #180 tabs 07/04/24 meclizine 25 mg tablet 25 mg PO DAILY PRN dizziness #14 08/22/24 tabs Allergies Allergy/AdvReac Type Severity Reaction Status Date / Time morphine [MORPHINE] Allergy Intermediate TACHYCARDIA, Verified 08/22/24 09:35 palpitations Penicillins Allergy Intermediate RASH Verified 08/22/24 09:35 Sulfa (Sulfonamide Allergy Intermediate rash Verified 08/22/24 09:35 Antibiotics) PMFSH Past Medical History Medical History Upper abdominal pain Ovarian cyst History of uterine cancer Tubular adenoma Physical exam GERD (gastroesophageal reflux disease) Mild recurrent major depression High cholesterol Lower back pain Anxiety Hypothyroidism Dyslipidemia Diabetes mellitus Surgical History History of toe surgery H/O: Lipoma Status post breast reduction History of laparoscopic cholecystectomy History of total abdominal hysterectomy Family History Family History Father Hypertension Diabetes Mother Hypertension Diabetes Stroke Cancer Paternal Grandmother Cancer Family/Other Mental health disorder Social History Social History Housing: Apartment Alcohol intake: current Alcohol intake frequency: holidays/special occasions only Alcohol type: hard liquor Patient Tobacco Use Status: Never used Tobacco e-Cigarette/Vaping Use: Never Used Second Hand Smoke Exposure: No Advance Directives: No Advance Directives Information Provided: Yes Do you have a plan to hurt others: No Plan service: No Current occupational status: disabled Cognitive needs: No Hearing needs: No Vision needs: Yes Physical Exam ED Vital Signs: Vital Signs - 24 hr 08/22/24 09:35 08/22/24 12:53 08/22/24 12:54 Temperature 98.6 F 97.7 F Pulse Rate 69 78 78 Respiratory Rate 20 18 Blood Pressure 131/60 144/63 H 144/63 H Pulse Oximetry 100 99 Oxygen Delivery Method Room Air Room Air 08/22/24 12:55 08/22/24 12:56 08/22/24 14:01 Temperature 97.4 F Pulse Rate 72 70 70 Respiratory Rate 16 Blood Pressure 135/62 134/55 L 134/55 L Pulse Oximetry 98 Oxygen Delivery Method Room Air BMI result Body Mass Index 38.4 Const Other: EXAM: Gen: Alert, awake, well appearing, well hydrated. Head: Atraumatic Eyes: Anicteric, Normal conjunctiva. ENT: Moist mucosa, no pallor. ? Neck: Supple. Respiratory: Breathing comfortably, No distress.Clear to auscultation bilaterally, symmetric chest expansion, No wheeze, rales, ronchi. Cardiovascular: Regular rate and rhythm. No murmurs or rub. Well perfused periphery, warm extremities. No edema. ? Abdominal: Soft, no objective distension. No palpable masses or obvious organomegaly. No focal tenderness, no guarding, no rebound tenderness or other peritoneal findings. : No flank tenderness. Neuro: Alert. Gross movement of all extremities intact. ?Face symmetric pupils 2 mm symmetric and reactive, no nystagmus. No provocable vertigo. No truncal ataxia normal gait Vital signs: See flowsheet Medications Administered Discontinued Medications Generic Name Dose Route Start Last Admin Trade Name Freq PRN Reason Stop Dose Admin Ketorolac Tromethamine 15 mg 08/22/24 12:40 08/22/24 13:14 Ketorolac Tromethamine 15 Mg/Ml Vial IVPUSH 08/22/24 12:41 15 mg ONCE ONE Administration Meclizine HCl 25 mg 08/22/24 12:40 08/22/24 13:14 Meclizine Hcl 25 Mg Tablet PO 08/22/24 12:41 25 mg ONCE ONE Administration Medical Decision Making Medical Decision Making MDM Narrative: 59-year-old female with mainly presenting for vertigo this is positional worse with standing. No motor complaints no sensory complaints she has a reassuring neurologic exam including gait assessment cerebellar testing. She gastric and left-sided abdominal pain but has no significant tenderness. She previously gastritis. Counseled on dietary changes and antacid Lab Data 08/22/24 09:46 08/22/24 09:46 Labs: Lab Results 08/22/24 Range/Units 09:46 WBC 5.7 (4.8-10.8) X10*3/uL RBC 4.00 L (4.20-5.50) X10*6/uL Hgb 12.1 (12.0-16.0) g/dl Hct 36.8 L (37.0-47.0) % MCV 92.0 (80.0-98.0) fL MCH 30.3 (27.0-33.0) pg MCHC 32.9 (31.0-35.0) g/dl RDW 12.7 (11.0-16.0) % Plt Count 235 (160-400) X10*3/uL MPV 10.4 (9.4-12.3) fL Immature Gran % (Auto) 0.2 (0.0-0.4) % Neut % (Auto) 51.5 (45-73) % Lymph % (Auto) 36.3 (20-40) % Tillman % (Auto) 7.9 (2-11) % Eos % (Auto) 3.7 (0-4) % Baso % (Auto) 0.4 (0-2) % Lymph # (Auto) 2.1 (1.2-4.9) X10*3/uL Tillman # (Auto) 0.5 (0.1-1.2) X10*3/uL Eos # (Auto) 0.2 (0.0-0.4) X10*3/uL Baso # (Auto) 0.0 (0.0-0.2) X10*3/uL Abs Immat Gran (auto) 0.01 (0.00-0.03) X10*3/uL Absolute Neuts (auto) 2.9 (2.0-8.3) x10*3/uL Absolute Nucleated RBC 0.000 (0.0-0.012) X10*3/uL Nucleated RBC % (auto) 0.0 (0.0-0.2) /100WBC Sodium 141 (135-145) mmol/L Potassium 4.1 (3.3-5.1) mmol/L Chloride 110 H (96-108) mmol/L Carbon Dioxide 26 (22-29) mmol/L Anion Gap 9 L (12-20) BUN 14 (9-16) mg/dL Creatinine 0.71 (0.5-1.4) mg/dL Estim Creat Clear Calc 50.8 Estimated GFR > 60 Random Glucose 80 (60-115) mg/dL Calcium 9.2 (8.4-10.2) mg/dL Total Bilirubin 0.7 (0.0-1.0) mg/dL AST 23 (5-31) U/L ALT 27 (0-31) U/L Alkaline Phosphatase 68 (39-117) U/L Total Protein 7.1 (6.5-8.0) g/dL Albumin 3.9 (3.5-5.0) g/dL Lipase 39 (8-78) U/L Influenza Type A (PCR) NEGATIVE (Negative) Influenza Type B (PCR) NEGATIVE (Negative) RSV RNA Qual (PCR) NEGATIVE (Negative) SARS-CoV-2 RNA (RT-PCR) NEGATIVE (Negative) Independent Interpretation I performed an independent interpretation of an: EKG (Its rhythm rate 66 QTC 381 no ischemic changes normal intervals and axis) Discharge Plan Discharge Clinical Impression: Acute epigastric pain, Episodic peripheral vertigo Patient Disposition: Home, Self-Care Instructions: Vertigo (DC), Abdominal Pain (ED) Additional Instructions: _ DISCHARGE DIAGNOSES: Vertigo likely peripheral and benign Abdominal pain likely gastritis HISTORY OF PRESENTATION: The landing and epigastric pain EMERGENCY DEPARTMENT COURSE,TESTS, TREATMENTS: While in the ED today you had a reassuring examination and were given dizziness medication called meclizine. DISCHARGE MEDICATIONS: ?[We have made no changes to your regular medication regimen] FOLLOW-UP: ?Call your primary or general physician soon as possible to discuss your symptoms, your ED visit and to discuss follow up plans Call your primary doctor for follow-up you may need referral to vestibular therapy if you have continued vertigo symptoms like this. Drink plenty of fluid at least 3 L of water per day INSTRUCTIONS ?& RETURN PRECAUTIONS: If any symptoms change first call your primary physician, if it is after-hours your primary doctors office should have a provider honing machine set up operator tool you can speak with. If the symptoms are severe or very concerning to you then call 911 or return to the ED. Return severe worsening dizziness or inability to walk Zaid Bradshaw MD Emergency Physician [facility] Prescriptions: New meclizine 25 mg tablet 25 mg PO DAILY PRN (Reason: dizziness) Qty: 14 0RF No Action (DME) lancets 28 gauge misc See Rx Instructions topical BID Qty: 100 1RF Rx Instructions: Use 1 lancet once a day omeprazole 20 mg capsule,delayed release(DR/EC) 20 mg PO BID 14 Days Qty: 28 0RF bismuth subsalicylate [Bismuth] 262 mg tablet,chewable 2 tab PO QID 14 Days Qty: 112 0RF levothyroxine 75 mcg tablet 75 mcg PO DAILY 90 Days Qty: 90 1RF atorvastatin 40 mg tablet 40 mg PO BEDTIME 90 Days Qty: 90 1RF metformin 500 mg tablet 500 mg PO BID 90 Days Qty: 180 3RF (DME) blood sugar diagnostic Strip See Rx Instructions .ROUTE .MEDSUPPLY Qty: 10 Rx Instructions: As directed prazosin 1 mg capsule 1 mg PO BEDTIME PRN (Reason: nightmares) meloxicam 15 mg tablet 15 mg PO DAILY 30 Days Qty: 30 0RF cyclobenzaprine 10 mg tablet 10 mg PO BEDTIME 30 Days Qty: 30 0RF buspirone 5 mg tablet 5 mg PO BID sucralfate 100 mg/mL suspension 1 g PO QIDACHS 28 Days Qty: 420 0RF loperamide [Imodium A-D] 2 mg capsule 2 mg PO Q6H PRN (Reason: loose stool) Qty: 30 0RF Rx Instructions: Take 2 cap after 1st loose stool- One caplet after each subsequent loose stools No more than 4 caps in a 24 hour. (DME) FreeStyle Lite Strips Strip See Rx Instructions .MEDSUPPLY Qty: 100 8RF Rx Instructions: Use 1 to test blood sugar once a day Stand Alone Forms: Work/School Release Interventions: ED Discharge Assessment Last Done: 08/22/24 14:01 Discharge Date/Time: 08/22/24 14:01 Print Language: [place]
[2024-08-22 12:53] VITALS: BP 144/63; PULSE 78; RESP 18; TEMP 36.5; O2SAT 99
[2024-08-22 12:54] VITALS: BP 144/63; PULSE 78
[2024-08-22 12:55] VITALS: BP 135/62; PULSE 72
[2024-08-22 12:56] VITALS: BP 134/55; PULSE 70
[2024-08-22] MEDS: Ketorolac Tromethamine 15 MG/ML VIAL IVPUSH (13:14)
[2024-08-22] MEDS: Meclizine HCl 25 MG TABLET PO (13:14)
[2024-08-22 14:01] VITALS: BP 134/55; PULSE 70; RESP 16; TEMP 36.3; O2SAT 98
== END 2024-08-22 14:01 | disposition home or self-care (01) ==
PROVIDERS: Emergency Provider Emergency Medicine; PCP Internal Medicine
DX: R10.13 Epigastric pain (principal); H81.399 Other peripheral vertigo, unspecified ear; Z03.818 Encounter for observation for suspected exposure to other biological agents ruled out; E11.9 Type 2 diabetes mellitus without complications; E78.5 Hyperlipidemia, unspecified; E03.9 Hypothyroidism, unspecified
CPT/HCPCS: 0241U; 80053; 83690; 85025; 93005; 96374; 99284; J1885

== ENCOUNTER → 2024-08-22 09:28 | Outpatient (BNV) | payer OTHER, SELFPAY | PROVIDERS: Emergency Provider Emergency Medicine; PCP Internal Medicine; Visit Provider Internal Medicine | DX: R07.9 Chest pain, unspecified (principal) | CPT/HCPCS: 93010 ==

== ENCOUNTER 2024-10-04 09:13 | Outpatient (AMB) | payer OTHER, SELFPAY ==
--- NOTE | 2024-10-04 09:23 | MHC.PC.OV ---
Vital Signs 10/04/24 09:25 Height 4 ft 11 in Weight 134 lb BMI 27.1 BP 136/72 Blood Pressure Location Lt brachial Position Sitting Pulse 74 Pulse Source Pulse Oximeter Pulse Oximetry (%) 98 Oxygen Delivery Method Room Air Intake Visit Reasons: [facility] 10/24 & 11/28 Business Process Lead Required: No Accompanied by: Self / Same As Patient Allergies morphine (MORPHINE) Allergy (Intermediate, Verified 10/04/24 10:11) TACHYCARDIA, palpitations Penicillins Allergy (Intermediate, Verified 10/04/24 10:11) RASH Sulfa (Sulfonamide Antibiotics) Allergy (Intermediate, Verified 10/04/24 10:11) rash Medication List - Last Reconciled 10/04/24 by Suzie Hooks MD atorvastatin 40 mg PO BEDTIME 90 days blood sugar diagnostic As directed blood sugar diagnostic (FreeStyle Lite Strips) Use 1 to test blood sugar once a day buspirone 5 mg PO BID cyclobenzaprine 10 mg PO BEDTIME 30 days lancets Use 1 lancet once a day levothyroxine 75 mcg PO DAILY 90 days meclizine 25 mg PO DAILY PRN meloxicam 15 mg PO DAILY 30 days metformin 500 mg PO BID 90 days omeprazole 20 mg PO BID 14 days prazosin 1 mg PO BEDTIME PRN sucralfate 1 g (10 mL) PO QIDACHS 4 weeks Tobacco use date assessed: 05/26/24 Dental Screening Dental Screen Date: 05/26/24 HPI HPI Comments History of Present Illness Details This is a 59 year old female with diabetes mellitus type 2, hypertension, hypothyroidism, mild recurrent major depression and hyperlipidemia that comes today for preop evaluation for cataract extraction and intraocular lens implant schedule for next month. She is going for a low risk surgery and she is a low risk patient. Has 5 to 7 METs of ADLs. Denies any chest pain or shortness of breath. Had EKG and labs with no contraindications. By RCRI has 0.4 % risk of cardiac complications during surgery. Patient is medically clear for surgery. A1c within goal. BP stable. Last TSH normal. Depression in remission. LDL within goal. [facility] Medical History Upper abdominal pain Ovarian cyst History of uterine cancer Tubular adenoma Physical exam GERD (gastroesophageal reflux disease) Mild recurrent major depression High cholesterol Lower back pain Anxiety Hypothyroidism Dyslipidemia Diabetes mellitus Surgical History History of toe surgery H/O: Lipoma Status post breast reduction History of laparoscopic cholecystectomy History of total abdominal hysterectomy Family History Father Hypertension Diabetes Mother Hypertension Diabetes Stroke Cancer Paternal Grandmother Cancer Family/Other Mental health disorder Social History Housing: Apartment Alcohol intake: current Alcohol intake frequency: holidays/special occasions only Alcohol type: hard liquor Patient Tobacco Use Status: Never used Tobacco e-Cigarette/Vaping Use: Never Used Second Hand Smoke Exposure: No service: No Current occupational status: disabled Cognitive needs: No Hearing needs: No Vision needs: Yes Questionnaire Thrive Questionnaire Date Thrive assessed: 05/26/24 DEJUAN-7 AMB Questionnaire DEJUAN-7 Date DEJUAN - 7 assessed: 05/26/24 Source: Developed by Drs. Saw Bean, Jhoana Brewer, John Blanton and colleagues, with an educational lisa from [employer]. Review of Systems Const All systems reviewed & are unremarkable except as noted in HPI and below Card Denies chest pain at rest, Denies chest pain with activity, Denies edema, Denies irregular heart rhythm, Denies claudication, Denies dyspnea, Denies dyspnea on exertion, Denies orthopnea, Denies paroxysmal nocturnal dyspnea and Denies slow heart rate Resp Denies cough, Denies dyspnea and Denies dyspnea on exertion Physical exam (Primary Care) Vital Signs: Last Vital Signs Pulse 74 10/04/24 09:25 BP 136/72 10/04/24 09:25 Pulse Ox 98 10/04/24 09:25 Oxygen Delivery Method Room Air 10/04/24 09:25 BMI result Body Mass Index 27.1 Tobacco/Smoking Status: Tobacco use Status Tobacco use date assessed 05/26/24 10/04/24 09:32 Patient Tobacco Use Status Never used Tobacco 10/04/24 09:32 e-Cigarette/Vaping Use Never Used 10/04/24 09:32 Thrive Assessment: Date of Thrive Assessment Date Thrive assessed 05/26/24 10/04/24 09:32 Resp Effort & Inspection: normal respiratory effort Auscultation: clear to auscultation bilaterally Cardio Jugular venous distension: no JVD Rate: regular rate Rhythm: regular rhythm Heart sounds: S1 normal heart sound present and S2 normal heart sound present Results AMB Hemoglobin A1c AMB Hemoglobin A1c 6.3 % Last Edit by RIKY Falcon on 10/04/24 09:48 Results Reviewed Results Reviewed: Laboratory Last Values Hgb A1c (Clinic) 6.3 % (4.0-6.0) H 10/04/24 09:23 Coding Level of Care Code Est Pt Level 4 (59141) Complex EM visit Add On G2211 Diagnoses Pre-op evaluation Z01.818 Mild recurrent major depression F33.0 Type 2 diabetes mellitus with hyperglycemia, without long-term current use of insulin E11.65 Diabetes mellitus complication status: with hyperglycemia Diabetes mellitus longitudinal float operator insulin use: without longitudinal float operator use Diabetes mellitus type: type 2 Hypothyroidism, unspecified type E03.9 Hypothyroidism type: unspecified Dyslipidemia E78.5 Time Spent (min) 23 Assessment & Plan Assessment & Plan (1) Pre-op evaluation: Code(s): Z01.818 - Encounter for other preprocedural examination Category: Medical (2) Mild recurrent major depression: Code(s): F33.0 - Major depressive disorder, recurrent, mild Category: Medical (3) Diabetes mellitus: Code(s): E11.9 - Type 2 diabetes mellitus without complications Category: Medical Qualifiers: Diabetes mellitus complication status: with hyperglycemia Diabetes mellitus half-way insulin use: without half-way use Diabetes mellitus type: type 2 Qualified Code(s): E11.65 - Type 2 diabetes mellitus with hyperglycemia (4) Hypothyroidism: Code(s): E03.9 - Hypothyroidism, unspecified Category: Medical Qualifiers: Hypothyroidism type: unspecified Qualified Code(s): E03.9 - Hypothyroidism, unspecified (5) Dyslipidemia: Code(s): E78.5 - Hyperlipidemia, unspecified Category: Medical Plan Patient is medically clear for cataract extraction next month. Continue current meds. Orders: Orders AMB Hemoglobin A1c Today E11.65 - Type 2 diabetes mellitus with hyperglycemia Lipid Panel Today E78.5 - Hyperlipidemia, unspecified Microalbumin, Random (w Creat) Today R80.9 - Proteinuria, unspecified Vitamin D 25-OH Total Today E55.9 - Vitamin D deficiency, unspecified Comprehensive Blair. Panel Fast Today E11.65 - Type 2 diabetes mellitus with hyperglycemia Thyroid Stimulating Hormone Today E03.9 - Hypothyroidism, unspecified Medications: Refilled sucralfate 1 g (10 mL) PO QIDACHS 420 mL 0RF 4 weeks metformin 500 mg PO BID 180 tabs 3RF 90 days
[2024-10-04 09:25] VITALS: BP 136/72; PULSE 74; O2SAT 98; BMI 27.1
== END 2024-10-04 10:19 | disposition home or self-care (01) ==
LOC: HO.HMCH 09:14
PROVIDERS: PCP Internal Medicine; Visit Provider Internal Medicine
DX: Z01.818 Encounter for other preprocedural examination (principal); F33.0 Major depressive disorder, recurrent, mild; E11.65 Type 2 diabetes mellitus with hyperglycemia; E03.9 Hypothyroidism, unspecified; E78.5 Hyperlipidemia, unspecified

== ENCOUNTER → 2024-10-04 09:13 | Outpatient (BNVA) | payer OTHER, SELFPAY | PROVIDERS: PCP Internal Medicine; Visit Provider Internal Medicine | DX: Z01.818 Encounter for other preprocedural examination (principal); I10 Essential (primary) hypertension; E03.9 Hypothyroidism, unspecified; E78.5 Hyperlipidemia, unspecified; F33.0 Major depressive disorder, recurrent, mild; E11.65 Type 2 diabetes mellitus with hyperglycemia; Z79.899 Other long term (current) drug therapy | CPT/HCPCS: 83036; 99212 ==

== ENCOUNTER 2024-11-09 13:56 | Outpatient (REF) | payer OTHER, SELFPAY ==
--- OUTSIDE RECORDS SUMMARY | 2024-11-09 14:01 | XMS_ITS | Clinical Summary ---
Author Organization [facility] Address [address] [place] [address] Phone Care Team Providers Care Parachute Marker Name Role Phone Mariya Gutierrez MD Primary Care Provider [phone] Allergies Active Allergy Reactions Criticality Noted Date [...] 64 05/20/2024 5:54 PM EST Temperature 37.2 C (98.9 F) 05/20/2024 5:54 PM EST Respiratory Rate 18 05/20/2024 5:54 PM EST [...] 2) 02/10/2014 Colorectal Cancer Screening: Colonoscopy 05/18/2023 HIV Screening 05/18/2023 Hepatitis C Screening 05/18/2023 Social Influencers of Health Screening 05/18/2023 DTaP,Tdap,and Td Vaccines (5 - Td or Tdap) 12/10/2023 12/09/2013, 12/09/2013, 01/13/2010, Additional history exists COVID-19 Vaccine (3 - 2023- season) 2023 09/24/2020, 09/03/2020 Depression Screening 04/19/2024 Influenza Vaccine (#1) 2024 , 03/19/2022, 01/28/2021, Additional history exists RSV Immunization Adult Patients (1 - 1-dose 75+ series) 02/10/2039 HIB Vaccines Aged Out No longer eligi [...] patient's age to complete this topic Insurance [facility] Care Teams Parachute Marker Relationship Specialty Start Date End Date Mariya Gutierrez MD [address] [facility] Primary Care (111) SUNG Liu PCP - General 04/22/11
[2024-11-09 15:21] LABS: Alanine Aminotransferase 15 U/L (0-31); Albumin Level 4.3 g/dL (3.5-5.0); Alkaline Phosphatase 63 U/L (39-117); Anion Gap 10 (12-20); Aspartate Amino Transferase 23 U/L (5-31); Blood Urea Nitrogen 11 mg/dL (9-16); Calcium 9.2 mg/dL (8.4-10.2); Carbon Dioxide 26 mmol/L (22-29); Chloride 108 mmol/L (96-108); Cholesterol 220 mg/dL (<200); Estimated Glomerular Filt Rate > 60; HDL Cholesterol 60 mg/dL (>40); Potassium 4.0 mmol/L (3.3-5.1); Sodium 140 mmol/L (135-145); Total Protein 7.2 g/dL (6.5-8.0); Triglycerides 98 mg/dL (<150)
[2024-11-09 15:36] LABS: Thyroid Stimulating Hormone 2.67 uIU/mL (0.32-4.0)
[2024-11-09 15:37] LABS: Microalbum/Creatinine Ratio Ur 9.1 ug/mg cr (<30)
== END 2024-11-09 13:57 | disposition home or self-care (01) ==
LOC: HO.LAB 13:56
PROVIDERS: Visit Provider Internal Medicine
DX: E11.65 Type 2 diabetes mellitus with hyperglycemia (principal); E78.5 Hyperlipidemia, unspecified; E03.9 Hypothyroidism, unspecified; E55.9 Vitamin D deficiency, unspecified; R80.9 Proteinuria, unspecified
CPT/HCPCS: 36415; 80053; 80061; 82043; 82306; 82570; 84443

== ENCOUNTER 2024-11-13 08:06 | Outpatient (AMB) | payer OTHER, SELFPAY ==
--- OUTSIDE RECORDS SUMMARY | 2024-11-13 08:13 | XMS_ITS | Clinical Summary ---
Author Organization [facility] Address [address] [place] [address] Phone Care Team Providers Care Form Grader Name Role Phone Mariya Gutierrez MD Primary [...] patient's age to complete this topic Insurance [facility] Care Teams Form Grader Relationship Specialty Start Date End Date Mariya Gutierrez MD [address] [facility] Primary Care (111) SUNG Liu PCP - General 04/22/11
--- NOTE | 2024-11-13 08:15 | A.OFFPC_ITS ---
Vital Signs 11/13/24 08:18 Height 4 ft 11 in Weight 132 lb BMI 26.7 BP 134/72 Blood Pressure Location Lt brachial Position Sitting Intake Visit Reasons: 4 months Intake Note: Patient here for a 4 month follow up Product Safety Technician Required: No Accompanied by: Self / Same As Patient Allergies morphine (MORPHINE) Allergy (Intermediate, Verified 11/13/24 08:26) TACHYCARDIA, palpitations Penicillins Allergy (Intermediate, Verified 11/13/24 08:26) RASH Sulfa (Sulfonamide Antibiotics) Allergy (Intermediate, Verified 11/13/24 08:26) rash Medication List - Last Reconciled 11/13/24 by Suzie Hooks MD atorvastatin 40 mg PO BEDTIME 90 days blood sugar diagnostic As directed blood sugar diagnostic (FreeStyle Lite Strips) Use 1 to test blood sugar once a day buspirone 5 mg PO BID cyclobenzaprine 10 mg PO BEDTIME 30 days lancets Use 1 lancet once a day levothyroxine 75 mcg PO DAILY 90 days meclizine 25 mg PO DAILY PRN meloxicam 15 mg PO DAILY 30 days metformin 500 mg PO BID 90 days omeprazole 20 mg PO BID 14 days prazosin 1 mg PO BEDTIME PRN sucralfate 1 g (10 mL) PO QIDACHS 4 weeks Tobacco use date assessed: 05/26/24 Dental Screening Dental Screen Date: 05/26/24 HPI HPI Comments History of Present Illness Details The patient is a 59-year-old female presenting with the management of chronic conditions including hyperlipidemia, type 2 diabetes mellitus, and gastritis. Hyperlipidemia has been a concern with LDL cholesterol levels recorded at 141 mg/dL, which is above the target for patients with diabetes. The patient is currently on atorvastatin 40 mg for cholesterol management. Type 2 diabetes mellitus is being managed with metformin, and recent lab results show an A1c of 6.3%, indicating good glycemic control. The patient's blood glucose level was noted to be 101 mg/dL, which is within the normal range. Gastritis and esophagitis were diagnosed following an endoscopy performed last year, which revealed inflammation. The patient has been taking omeprazole for management, and pantoprazole has been prescribed for better control of symptoms. The patient also reports experiencing depression, with a PHQ-9 score of 10, and is currently seeing a counselor for management. [facility] Medical History Upper abdominal pain Ovarian cyst History of uterine cancer Tubular adenoma Physical exam GERD (gastroesophageal reflux disease) Mild recurrent major depression High cholesterol Lower back pain Anxiety Hypothyroidism Dyslipidemia Diabetes mellitus Surgical History History of toe surgery H/O: Lipoma Status post breast reduction History of laparoscopic cholecystectomy History of total abdominal hysterectomy Family History Father Hypertension Diabetes Mother Hypertension Diabetes Stroke Cancer Paternal Grandmother Cancer Family/Other Mental health disorder Social History Housing: Apartment Alcohol intake: current Alcohol intake frequency: holidays/special occasions only Alcohol type: hard liquor Patient Tobacco Use Status: Never used Tobacco e-Cigarette/Vaping Use: Never Used Second Hand Smoke Exposure: No service: No Current occupational status: disabled Cognitive needs: No Hearing needs: No Vision needs: Yes Questionnaire PHQ-9 Over the last 2 weeks, how often have you been bothered by any of the following problems? 1. Little interest or pleasure in doing things: more than half the days 2. Feeling down, depressed, or hopeless: more than half the days 3. Trouble falling or staying asleep, or sleeping too much: not at all 4. Feeling tired or having little energy: more than half the days 5. Poor appetite or overeating: more than half the days 6. Feeling bad about yourself - or that you are a failure or have let yourself or your family down: not at all 7. Trouble concentrating on things, such as reading the newspaper or watching television: more than half the days 8. Moving or speaking so slowly that other people could have noticed. Or the opposite - being so fidgety or restless that you have been moving around a lot more than usual: not at all 9. Thoughts that you would be better off or of hurting yourself in some way: not at all Total score: 10 Depression Screening Interpretation: Positive Depression Screening Follow-up: Existing condition, In treatment, Community Mental Health Worker F/U and Follow- up Visit Requested Depression Screening Done: Yes 85353 - PHQ-9 Billing: Yes Source: Developed by Drs. Saw Bean, John Paris and colleagues, with an educational lisa from [employer]. Thrive Questionnaire Date Thrive assessed: 05/26/24 I am a: Patient What is your living situation today?: I have a steady place to live Within the past 12 months, did the food you bought not last and you didn't have the money to get more?: Never true Within the past 12 months, did you worry whether your food would run out before you got money to buy more?: Never true Do you have trouble paying for medicines?: No Do you have trouble getting transportation to medical appointments?: No Do you have trouble paying your heating and electricity bill?: No Do you have trouble taking care of your child, family member or friend?: No Do you have trouble with day-to-day activities such as bathing, preparing meals, shopping, managing finances, etc.?: No Are you currently unemployed and looking for a job?: No Are you interested in more education?: No Please select the resources that you would like help with: None Currently or been in a relationship where the following occur: No concerns reported THRIVE Score: 0 AUDIT C Alcohol Use Questionnaire (AUDIT-C) 1. How often do you have a drink containing alcohol?: Never Total Score: 0 Score Reviewed/Action Taken: No DEJUAN-7 AMB Questionnaire DEJUAN-7 Date DEJUAN - 7 assessed: 05/26/24 Feeling nervous, anxious, or on edge: 2 = More than half the days Not being able to stop or control worryin = Not at all Worrying too much about different things: 0 = Not at all Trouble relaxin = Not at all Being so restless that it is hard to sit still: 0 = Not at all Becoming easily annoyed or irritable: 0 = Not at all Feeling afraid as if something awful might happen: 0 = Not at all Total DJEUAN-7 score (0-4 normal; 5-9 mild; 10-14 moderate; 15-21 severe): 2 Source: Developed by Drs. Saw Bean, John Paris and colleagues, with an educational lisa from [employer]. DEJUAN-7 Assessment Billing DEJUAN-7 Assessment Tool: DEJUAN-7 Assessment 14801 Review of Systems Const All systems reviewed & are unremarkable except as noted in HPI and below Card Denies chest pain at rest, Denies chest pain with activity, Denies edema, Denies irregular heart rhythm, Denies claudication, Denies dyspnea, Denies dyspnea on exertion, Denies orthopnea, Denies paroxysmal nocturnal dyspnea and Denies slow heart rate Resp Denies cough, Denies dyspnea and Denies dyspnea on exertion GI Denies abdominal pain, Denies change in bowel habits, Denies excessive flatus, Denies nausea and Denies vomiting Denies urinary incontinence, Denies urinary hesitancy and Denies urinary urgency Musc Denies abnormal gait, Denies atrophy, Denies deformity and Denies limited range of motion Skin/Breast Denies bleeding lesions, Denies changing lesions and Denies rash Neuro Denies abnormal gait and Denies lack of coordination Physical exam (Primary Care) Vital Signs: Last Vital Signs BP 134/72 11/13/24 08:18 BMI result Body Mass Index 26.7 Tobacco/Smoking Status: Tobacco use Status Tobacco use date assessed 05/26/24 11/13/24 08:20 Patient Tobacco Use Status Never used Tobacco 11/13/24 08:20 e-Cigarette/Vaping Use Never Used 11/13/24 08:20 PHQ-9: PHQ-9 Score PHQ-9: Total score 10 11/13/24 08:29 Depression Screening Interpretation: Positive Depression Screening Follow-up: Existing condition, In treatment, Community Mental Health Worker F/U and Follow- up Visit Requested Thrive Assessment: Date of Thrive Assessment Date Thrive assessed 05/26/24 11/13/24 08:20 Currently or been in a relationship where the following occur: No concerns reported Resp Effort & Inspection: normal respiratory effort Auscultation: clear to auscultation bilaterally Cardio Jugular venous distension: no JVD Rate: regular rate Rhythm: regular rhythm Heart sounds: S1 normal heart sound present and S2 normal heart sound present Extrem General: Yes full ROM Psych Appearance: grossly normal Coding Level of Care Code Est Pt Level 4 (42323) Complex EM visit Add On G2211 Diagnoses Type 2 diabetes mellitus with hyperglycemia, without long-term current use of insulin E11.65 Diabetes mellitus type: type 2 Diabetes mellitus correction insulin use: without intermediate frame tender use Diabetes mellitus complication status: with hyperglycemia Dyslipidemia E78.5 Mild recurrent major depression F33.0 Gastroesophageal reflux disease, unspecified whether esophagitis present K21.9 Esophagitis presence: esophagitis presence not specified Hypothyroidism, unspecified type E03.9 Hypothyroidism type: unspecified Additional Codes DEJUAN-7 Assessment Billing - DEJUAN-7 Assessment Tool: DEJUAN-7 Assessment 14631 ([id number]) PHQ-9 - 36679 - PHQ-9 Billing: Yes ([id number]) Time Spent (min) 22 Assessment & Plan Assessment & Plan (1) Diabetes mellitus: Code(s): E11.9 - Type 2 diabetes mellitus without complications Category: Medical Qualifiers: Diabetes mellitus type: type 2 Diabetes mellitus intermediate frame tender insulin use: without intermediate frame tender use Diabetes mellitus complication status: with hyperglycemia Qualified Code(s): E11.65 - Type 2 diabetes mellitus with hyperglycemia (2) Dyslipidemia: Code(s): E78.5 - Hyperlipidemia, unspecified Category: Medical (3) Mild recurrent major depression: Code(s): F33.0 - Major depressive disorder, recurrent, mild Category: Medical (4) GERD (gastroesophageal reflux disease): Comment: acid reflux-nothing specific Code(s): K21.9 - Gastro-esophageal reflux disease without esophagitis Category: Medical Qualifiers: Esophagitis presence: esophagitis presence not specified Qualified Code(s): K21.9 - Gastro-esophageal reflux disease without esophagitis (5) Hypothyroidism: Code(s): E03.9 - Hypothyroidism, unspecified Category: Medical Qualifiers: Hypothyroidism type: unspecified Qualified Code(s): E03.9 - Hypothyroidism, unspecified Plan The patient will continue on atorvastatin 40 mg for hyperlipidemia management, with an emphasis on dietary modifications to lower LDL cholesterol levels. Pantoprazole has been prescribed to replace omeprazole for better management of gastritis and esophagitis symptoms. For type 2 diabetes mellitus, the patient will continue with metformin, and regular monitoring of blood glucose levels is advised to maintain control. The patient is encouraged to maintain a balanced diet and exercise regularly to support overall health. The patient is advised to continue counseling for depression management, and follow-up appointments should be scheduled to monitor progress. Patient was informed and verbally consented to the use of an ambient scribe for clinic note documentation during this visit. Orders: Orders Microalbumin, Random (w Creat) 4 Months R80.9 - Proteinuria, unspecified Vitamin D 25-OH Total 4 Months E55.9 - Vitamin D deficiency, unspecified Comprehensive [place]. Panel Fast 4 Months E11.65 - Type 2 diabetes mellitus with hyperglycemia Lipid Panel 4 Months E78.5 - Hyperlipidemia, unspecified Thyroid Stimulating Hormone 4 Months E03.9 - Hypothyroidism, unspecified Medications: New pantoprazole 40 mg PO DAILY 90 tabs 1RF 90 days atorvastatin (Lipitor) 80 mg PO BEDTIME 90 tabs 1RF 90 days Discontinued omeprazole Discontinued Reason: Patient Completed Course 20 mg PO BID 14 days 28 caps 0RF atorvastatin Discontinued Reason: Patient Completed Course 40 mg PO BEDTIME 90 days 90 tabs 1RF
[2024-11-13 08:18] VITALS: BP 134/72; BMI 26.7
== END 2024-11-13 08:36 | disposition home or self-care (01) ==
LOC: HO.HMCH 08:07
PROVIDERS: PCP Internal Medicine; Visit Provider Internal Medicine
DX: E11.65 Type 2 diabetes mellitus with hyperglycemia (principal); E78.5 Hyperlipidemia, unspecified; F33.0 Major depressive disorder, recurrent, mild; K21.9 Gastro-esophageal reflux disease without esophagitis; E03.9 Hypothyroidism, unspecified

== ENCOUNTER → 2024-11-13 08:06 | Outpatient (BNVA) | payer OTHER, SELFPAY | PROVIDERS: PCP Internal Medicine; Visit Provider Internal Medicine | DX: E11.65 Type 2 diabetes mellitus with hyperglycemia (principal); E78.5 Hyperlipidemia, unspecified; K29.70 Gastritis, unspecified, without bleeding; K20.90 Esophagitis, unspecified without bleeding; F33.0 Major depressive disorder, recurrent, mild; K21.9 Gastro-esophageal reflux disease without esophagitis; E03.9 Hypothyroidism, unspecified; R80.9 Proteinuria, unspecified; E55.9 Vitamin D deficiency, unspecified | CPT/HCPCS: 96127; 99212 ==

== ENCOUNTER 2025-03-28 09:20 | Outpatient (REF) | payer OTHER, SELFPAY ==
[2025-03-28 11:25] LABS: Alanine Aminotransferase 14 U/L (0-31); Albumin Level 4.2 g/dL (3.5-5.0); Alkaline Phosphatase 76 U/L (39-117); Anion Gap 8 (12-20); Aspartate Amino Transferase 22 U/L (5-31); Blood Urea Nitrogen 13 mg/dL (9-16); Calcium 9.0 mg/dL (8.4-10.2); Carbon Dioxide 28 mmol/L (22-29); Chloride 107 mmol/L (96-108); Cholesterol 178 mg/dL (<200); Estimated Glomerular Filt Rate > 60; HDL Cholesterol 66 mg/dL (>40); Potassium 3.8 mmol/L (3.3-5.1); Sodium 139 mmol/L (135-145); Total Protein 7.1 g/dL (6.5-8.0); Triglycerides 57 mg/dL (<150)
[2025-03-28 11:30] LABS: Microalbum/Creatinine Ratio Ur 23.9 ug/mg cr (<30)
[2025-03-28 11:44] LABS: Thyroid Stimulating Hormone 3.38 uIU/mL (0.32-4.0)
== END 2025-03-28 09:21 ==
LOC: HO.LAB 09:20
PROVIDERS: PCP Internal Medicine; Visit Provider Internal Medicine
DX: E11.65 Type 2 diabetes mellitus with hyperglycemia (principal); E78.5 Hyperlipidemia, unspecified; R80.9 Proteinuria, unspecified; E55.9 Vitamin D deficiency, unspecified; E03.9 Hypothyroidism, unspecified
CPT/HCPCS: 36415; 80053; 80061; 82043; 82306; 82570; 84443